=== PATIENT | female | born 1955 | race Caucasian/White ===

== ENCOUNTER 2018-10-12 00:41 | Emergency (ER) | payer MEDICARE, SELFPAY ==
[2018-10-12 00:42] VITALS: BP 156/93; PULSE 92; RESP 22; TEMP 36.4; O2SAT 94; BMI 26.6
--- NOTE | 2018-10-12 00:52 | RAD_ITS ---
STUDY: X-RAY - RIGHT KNEE REASON FOR EXAM: Female, 63 years old. Injury TECHNIQUE: The 3 view(s) of the knee. COMPARISON: None. FINDINGS: Normal visualized distal femur. Normal visualized proximal tibia and fibula. Normal proximal tibiofibular articulation. There is mild degenerative arthrosis of the medial femorotibial compartment. Normal lateral femorotibial compartment. Normal patellofemoral articulation. There is no demonstrated joint effusion. The soft tissue structures are unremarkable. RAD/Knee 3 Views IMPRESSION: Mild medial femoral tibial joint space narrowing. There is no acute displaced fracture or dislocation. Electronically Signed: Chantal Del Valle MD at 1:48 EST , Service support ,
--- NOTE | 2018-10-12 00:52 | RAD_ITS ---
STUDY: X-RAY - RIGHT WRIST REASON FOR EXAM: Female, 63 years old. Injury TECHNIQUE: 3 view(s) of the wrist were obtained. COMPARISON: None. FINDINGS: Acute transverse fracture of the distal radius with dorsal angulation and foreshortening. There is demineralization of osseous structures. Normal radiocarpal articulation. There is a positive ulnar variance. Normal carpal bones. Normal carpal articulations. There is mild arthrosis of the carpometacarpal articulation of the thumb. Normal second through fifth carpometacarpal articulations. Normal visualized metacarpal bones. There is soft tissue swelling. RAD/Wrist min 3 Views IMPRESSION: Acute displaced fracture of the distal radial metaphyses. There is demineralization of osseous structures. Mild degenerative changes. There is soft tissue swelling. Electronically Signed: Chantal Del Valle MD at 1:50 EST , Service support ,
--- NOTE | 2018-10-12 00:52 | RAD_ITS ---
STUDY: X-RAY - RIGHT RADIUS AND ULNA REASON FOR EXAM: Female, 63 years old. Injury TECHNIQUE: 2 view(s) of the forearm. COMPARISON: None. FINDINGS: There is soft tissue swelling. There is a distal acute transverse radial fracture with dorsal angulation and adjacent soft tissue swelling. Radius is shortened. There is demineralization of osseous structures. Normal visualized ulna. RAD/Forearm 2 Views IMPRESSION: Acute displaced transverse fracture of the distal radius with dorsal angulation and foreshortening. There is demineralization of osseous structures. There is soft tissue swelling. Electronically Signed: Chantal Del Valle MD at 1:47 EST , Service support ,
[2018-10-12] MEDS: Ondansetron 4 MG/2 ML Vial IV (01:00)
[2018-10-12] MEDS: Morphine 4 MG/ML Syringe IV (01:00)
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
--- NOTE | 2018-10-12 02:10 | EKG12_ITS ---
Test Reason : FALL Blood Pressure : / mmHG Vent. Rate : 083 BPM Atrial Rate : 083 BPM P-R Int : 154 ms QRS Dur : 076 ms QT Int : 376 ms P-R-T Axes : 066 066 062 degrees QTc Int : 441 ms Sinus rhythm with occasional Premature ventricular complexes Otherwise normal ECG Confirmed by MINH SMITH, PREMA ([id number]), editor news EMMA SOCAR ([id number]) on 10/14/2018 8:19:20 AM Referred By: PALOMA Confirmed By:PREMA WILKINSON MD
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
[2018-10-12 02:15] VITALS: BP 99/75; PULSE 80; RESP 18; O2SAT 94
[2018-10-12 02:18] VITALS: PULSE 85; RESP 18
[2018-10-12] MEDS: Ipratropium/Albuterol Sulfate 3 ML AMPUL.NEB INHALATION (02:18)
[2018-10-12] MEDS: Albuterol 2.5 MG/3 ML VIAL.NEB. INHALATION ×2 (02:18→02:37)
[2018-10-12 02:22] LABS: Absolute Lymphocyte Count 3.31 X10^3/ul (0.83-4.51); Absolute Neutrophil Count 8.5 X10^3/uL (2.0-7.7); Basophil# 0.03 X10^3/uL; Basophil% 0.2 % (0-1); Eosinophil# 0.11 X10^3/uL; Eosinophils% 0.8 % (0-5); Hematocrit 44.3 % (37-47); Hemoglobin 14.8 g/dl (12.0-15.0); Lymphocyte # 3.31 X10^3/ul (4.0); Lymphocyte % 24.9 % (19-41); Mean Corp Hgb Conc 33.4 g/gl (32-36); Mean Corpuscular Hgb 32.2 pg (27.0-32.0); Mean Corpuscular Volume 96.3 fL (81-99); Mean Platelet Vol. 10.6 fl (6.2-12.0); Monocyte# 1.32 X10^3/uL; Monocyte% 9.9 % (0-10); Neutrophil # 8.48 X10^3/uL (2.7-7.7); Neutrophil % 63.9 % (47-70); POSITIVE DIFFERENTIAL NO; Platelet Count 377 K/mm3 (150-450); RBC Distribution Width CV 15.2 % (11.6-14.6); White Blood Count 13.3 K/mm3 (4.4-11.0)
[2018-10-12 02:23] LABS: POSITIVE COUNT NO; POSITIVE MORPHOLOGY NO
[2018-10-12 02:34] LABS: Anion Gap 7 (5-15); BUN 12 mg/dL (7-18); BUN/Creat Ratio 15.4 RATIO (10-20); Calcium,Total 8.4 mg/dL (8.5-10.1); Chloride 102 mmol/L (98-107); Creatinine, Serum 0.78 mg/dL (0.55-1.02); EST Glomerular Filtration Rate 79 mL/min (>60); Est Glom Filt Rate - Afr Amer 96 mL/min (>60); Estimated Creatinine Clearance 54.98 ml/min; Glucose 106 mg/dL (74-106); Potassium 4.3 mmol/L (3.5-5.1); Sodium Level 136 mmol/L (136-145)
[2018-10-12 02:37] VITALS: PULSE 83; RESP 18
--- NOTE | 2018-10-12 03:25 | ED.VISSUMM ---
- ER Visit Summary Date of Service: 10/12/18 Chief Complaint: [] History of Present Illness: The patient is a 63 F [] Physical Examination: [] Test Results: [] Emergency Department Course and Treatment: [] Treatment Plan: [] Disposition: [] Impression: [] This note was generated with [employer] dictation software. It may contain incorrect words, spelling, and punctuation that were not noted in review of the chart prior to signing ED Disposition - Plan for ED Patient: Disposition: Home or Assisted Living Chief Complaint: Fall Instructions: ED Mechanical Fall, ED Fx Wrist General, Treatment for COPD Prescriptions: Oxycodone HCl/Acetaminophen [Percocet 5/325] 1 tab PO Q6H PRN PRN 3 Days #12 tab PRN Reason: Pain Prednisone [Deltasone] 40 mg PO DAILY #8 tab Referrals: Xavier Brownlee MD [Primary Care Provider] - iGl Peters MD [STAFF PHYSICIAN] -
[2018-10-12] MEDS: MethylPREDNISolone 125 MG/2 ML Vial IV (03:29)
[2018-10-12 03:44] VITALS: BP 126/62; PULSE 85; RESP 24; O2SAT 86
--- NOTE | 2018-10-12 03:45 | ED.RN ---
PATIENT REFUSES TO STAY DESPITE DOCTOR AND NURSES ADVICE. PATIENT'S O2 IS 86% ON ROOM AIR AND PATIENT UNDERSTANDS THE RISKS.
== END 2018-10-12 03:46 | disposition home or self-care (01) ==
PROVIDERS: Emergency Provider Emergency Medicine; Family Provider Family Medicine; PCP Family Medicine
DX: S52.501A Unspecified fracture of the lower end of right radius, initial encounter for closed fracture (principal); S80.01XA Contusion of right knee, initial encounter; J44.1 Chronic obstructive pulmonary disease with (acute) exacerbation; R09.02 Hypoxemia; R06.2 Wheezing; Z79.82 Long term (current) use of aspirin; Z79.899 Other long term (current) drug therapy; W18.30XA Fall on same level, unspecified, initial encounter; Y93.01 Activity, walking, marching and hiking; Y92.096 Garden or yard of other non-institutional residence as the place of occurrence of the external cause; Y99.8 Other external cause status
CPT/HCPCS: 29125; 71046; 73090; 73110; 73562; 80048; 84484; 85025; 93005; 94640; 96374; 96375; 99285; A4216; J2405

== ENCOUNTER 2019-07-19 19:45 | Emergency (ER) | payer MEDICARE, SELFPAY ==
[2019-07-19 19:46] VITALS: BP 163/76; PULSE 87; RESP 20; TEMP 36.4; O2SAT 93; BMI 22.1
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
[2019-07-19 19:51] VITALS: BP 163/76; PULSE 91; RESP 30; O2SAT 93
[2019-07-19 19:54] VITALS: TEMP 36.4; O2SAT 94
[2019-07-19] MEDS: fentaNYL 100 MCG/2 ML Ampul 50 MCG IV (20:00)
[2019-07-19] MEDS: Ondansetron 4 MG/2 ML Vial IV (20:00)
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
--- NOTE | 2019-07-19 20:07 | ED.RN ---
PT CROSS NECKLACE PLACED IN GREEN AND BLUE VERA ROSEMARIE PURSE FOR CT.
[2019-07-19 20:09] LABS: Absolute Lymphocyte Count 2.88 X10^3/uL (0.83-4.51); Absolute Neutrophil Count 9.7 X10^3/uL (2.0-7.7); Basophil# 0.05 X10^3/uL; Basophil% 0.4 % (0-1); Eosinophil# 0.08 X10^3/uL; Eosinophils% 0.6 % (0-5); Hematocrit 43.2 % (37-47); Hemoglobin 13.8 g/dL (12.0-15.0); Lymphocyte # 2.88 X10^3/ul (4.0); Lymphocyte % 20.6 % (19-41); Mean Corp Hgb Conc 31.9 g/dL (32-36); Mean Corpuscular Hgb 28.6 pg (27.0-32.0); Mean Corpuscular Volume 89.6 fL (81-99); Mean Platelet Vol. 9.3 fl (6.2-12.0); Monocyte# 1.19 X10^3/uL; Monocyte% 8.5 % (0-10); NRBC Flagged by Analyzer 0 % (0-5); Neutrophil # 9.72 X10^3/uL (2.7-7.7); Neutrophil % 69.5 % (47-70); Platelet Count 367 K/mm3 (150-450); RBC Distribution Width SD 52.8 fl (35.1-43.9); Red Blood Count 4.82 M/mm3 (4.2-5.4)
[2019-07-19 20:22] LABS: Anion Gap 6 (5-15); BUN 7 mg/dL (7-18); BUN/Creat Ratio 10.5 RATIO (10-20); Calcium,Total 8.4 mg/dL (8.5-10.1); Chloride 95 mmol/L (98-107); Creatinine, Serum 0.66 mg/dL (0.55-1.02); EST Glomerular Filtration Rate 95 mL/min (>60); Est Glom Filt Rate - Afr Amer 115 mL/min (>60); Estimated Creatinine Clearance 83.74 ml/min; Glucose 91 mg/dL (74-106); Potassium 4.4 mmol/L (3.5-5.1); Sodium Level 127 mmol/L (136-145)
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
[2019-07-19 20:32] LABS: International Normalized Ratio 0.9; Partial Thromboplast Time 29.2 Seconds (24.1-36.2); Prothrombin Time (Protime)PT. 12.4 SECONDS (11.7-14.9)
[2019-07-19 20:52] LABS: Alcohol, Blood (Medical)-Serum < 3.0 mg/dL
[2019-07-19 20:57] VITALS: BP 163/86; PULSE 87; RESP 18; O2SAT 98
[2019-07-19 21:00] VITALS: PULSE 83; RESP 19; O2SAT 96
[2019-07-19 21:45] VITALS: BP 159/80; PULSE 84; RESP 18; O2SAT 90; O2SAT 92
== END 2019-07-19 21:47 | disposition home or self-care (01) ==
PROVIDERS: Emergency Provider Emergency Medicine; Family Provider Family Medicine; PCP Family Medicine
DX: S06.0X0A Concussion without loss of consciousness, initial encounter (principal); S33.5XXA Sprain of ligaments of lumbar spine, initial encounter; J44.9 Chronic obstructive pulmonary disease, unspecified; I70.0 Atherosclerosis of aorta; R91.1 Solitary pulmonary nodule; F17.200 Nicotine dependence, unspecified, uncomplicated; Z79.82 Long term (current) use of aspirin; V47.0XXA Car driver injured in collision with fixed or stationary object in nontraffic accident, initial encounter; Y93.I9 Activity, other involving external motion; Y92.410 Unspecified street and highway as the place of occurrence of the external cause; Y99.8 Other external cause status
CPT/HCPCS: 70450; 71045; 71260; 72125; 74177; 80048; 80320; 85025; 85610; 85730; 93005; 96374; 96375; 99285; Q9967; A4216; G0480; J2405

== ENCOUNTER 2020-03-03 20:55 | Inpatient (IN) | payer MEDICARE, SELFPAY ==
[2020-03-03] VITALS (9 sets, daily range): BP systolic 118–151; BP diastolic 58–82; PULSE 102–113; RESP 12–35; TEMP 36.3–36.7; O2SAT 80–97; BMI 27.1
--- NOTE | 2020-03-03 21:00 | EKG12_ITS ---
Test Reason : SOB Blood Pressure : / mmHG Vent. Rate : 111 BPM Atrial Rate : 111 BPM P-R Int : 196 ms QRS Dur : 084 ms QT Int : 318 ms P-R-T Axes : 064 077 037 degrees QTc Int : 432 ms Sinus tachycardia Biatrial enlargement Abnormal ECG Confirmed by RHONDA SMITH, BEV ([id number]), department editor JAYCE FERNANDEZ ([id number]) on 03/06/2020 10:40:38 AM Referred By: LUIZ Confirmed By:BEV ELLIS MD
[2020-03-03] MEDS: MethylPREDNISolone 125 MG/2 ML Vial IV (21:19)
[2020-03-03] MEDS: Ipratropium/Albuterol Sulfate 3 ML AMPUL.NEB INHALATION (21:19)
[2020-03-03] MEDS: 0.9% Normal Saline 1,000 ML 150 ML IV (21:19)
--- NOTE | 2020-03-03 21:25 | RAD_ITS ---
STUDY: X-RAY CHEST REASON FOR EXAM: Female, 64 years old. sob, hx copd, productive cough with dark yellow phlegm. Expiratory wheezes TECHNIQUE: Single frontal view of the chest. COMPARISON: July 19, 2019 FINDINGS: There are stable prominent interstitial markings. There is no new focal consolidation. Normal size heart. Normal mediastinum and didier. Normal visualized pulmonary arteries. Normal visualized aortic arch and descending thoracic aorta. Normal visualized thoracic spine. Normal visualized ribs, clavicles, and shoulders. There is no demonstrated abnormality of the visualized soft tissue structures of the upper abdomen. RAD/Chest 1 View (Portable) IMPRESSION: No acute cardiopulmonary process. Electronically Signed: Vivian Saenz MD at 22:06 EDT Tel , Service support ,
[2020-03-03 21:28] LABS: Absolute Lymphocyte Count 2.38 X10^3/uL (0.83-4.51); Basophil# 0.06 X10^3/uL; Basophil% 0.2 % (0-1); Eosinophil# 0.03 X10^3/uL; Eosinophils% 0.1 % (0-5); Hematocrit 41.6 % (37-47); Hemoglobin 13.6 g/dL (12.0-15.0); Lymphocyte # 2.38 X10^3/ul (4.0); Lymphocyte % 8.2 % (19-41); Mean Corp Hgb Conc 32.7 g/dL (32-36); Mean Corpuscular Hgb 29.4 pg (27.0-32.0); Mean Corpuscular Volume 89.8 fL (81-99); Mean Platelet Vol. 9.7 fl (6.2-12.0); Monocyte# 2.46 X10^3/uL; Monocyte% 8.4 % (0-10); NRBC Flagged by Analyzer 0 % (0-5); Neutrophil # 23.95 X10^3/uL (2.7-7.7); Neutrophil % 82.2 % (47-70); POSITIVE DIFFERENTIAL YES; Platelet Count 363 K/mm3 (150-450); RBC Distribution Width CV 16.1 % (11.6-14.6); RBC Distribution Width SD 53.6 fl (35.1-43.9); Red Blood Count 4.63 M/mm3 (4.2-5.4); White Blood Count 29.2 K/mm3 (4.4-11.0)
[2020-03-03 21:31] LABS: Differential Indicated SCAN CRITERIA MET
[2020-03-03 21:47] LABS: Anion Gap 7 (5-15); BUN 10 mg/dL (7-18); BUN/Creat Ratio 10.9 RATIO (10-20); Calcium,Total 8.4 mg/dL (8.5-10.1); Chloride 94 mmol/L (98-107); Creatinine, Serum 0.92 mg/dL (0.55-1.02); EST Glomerular Filtration Rate 65 mL/min (>60); Est Glom Filt Rate - Afr Amer 79 mL/min (>60); Glucose 102 mg/dL (74-106); Potassium 4.1 mmol/L (3.5-5.1); Sodium Level 126 mmol/L (136-145)
[2020-03-03 21:52] LABS: D-Dimer Quantitative (DVT/PE) 0.84 FEU/ug/m (0.27-0.49)
--- NOTE | 2020-03-03 22:04 | CT_ITS ---
STUDY: CTA CHEST REASON FOR EXAM: Female, 64 years old. PE, SOB, COPD, COUGH, DARK YELLOW PHLEGM, WHEEZING, ELEVATED D-DIMER RADIATION DOSAGE (If Supplied By Facility): CTDIvol = ( 6.00 ) mGy, DLP = ( 219.65 ) mGycm TECHNIQUE: The examination was performed with the intravenous administration of IV 100mL Isovue-370. Post-processing of the angiographic images was performed, with multiplanar reformation and 3D reconstruction. Individualized dose optimization techniques were used for this CT. COMPARISON: July 19, 2019 FINDINGS: Motion artifact degrades anatomic detail. There is new focal consolidation within the right middle and upper lobes. There is minimal dependent consolidation within the lower lobes visualized as well. There are scattered tree-in-bud opacities throughout the lungs. There is minimal atelectasis within the lingula. Normal enhancement of the main pulmonary artery and right and left pulmonary arteries. Normal enhancement of the bilateral peripheral pulmonary arteries. There is no demonstrated pulmonary embolism. There is atherosclerotic calcification of the aortic arch . There is no demonstrated aortic dissection. There are calcifications of the coronary arteries. There are enlarged mediastinal and right hilar lymph nodes. Normal visualized trachea and bronchi. Normal chest wall structures. There are degenerative changes of thoracic spine. Limited images of the upper abdomen demonstrate peripheral calcifications of the abdominal aorta. CT/CTA Chest W/WO Contrast IMPRESSION: No demonstrated pulmonary embolism or arterial dissection. Scattered tree-in-bud opacities associated with consolidation consolidation within the right middle and upper lobes and to less extent within the lower lobes, may be secondary to an infectious process. Enlarged mediastinal and right hilar lymph nodes, possibly reactive. Atherosclerosis. Electronically Signed: Vivian Saenz MD at 23:08 EDT Tel , Service support ,
[2020-03-03] MEDS: Albuterol 2.5 MG/3 ML VIAL.NEB. INHALATION ×2 (22:10)
[2020-03-03 23:15] LABS: Allen Test POS; Blood Gas Specimen Type ART; O2 Delivery Device Nasal Can; SITE R RADIAL
[2020-03-03 23:16] LABS: Base Excess -6 mmol/L (-2 to +2); PO2 68 mmHG (75-100); SO2 89 % (95-99); Time Given 2135; Total Carbon Dioxide 24 mmol/L; pCO2 53.5 mmHg (35-45); pH 7.22 (7.35-7.45)
--- NOTE | 2020-03-03 23:26 | ED.VISSUMM ---
- ER Visit Summary Date of Service: 03/03/20 Chief Complaint: Shortness of breath History of Present Illness: The patient is a [address] Jo. She has a history of COPD. She reports she has shortness of breath that began yesterday. She has had a cough for the past week. She was states it is productive of dark yellow sputum without blood. She denies any fever or chills. She complains of a stabbing left-sided chest pain is 8 out of 10 severity states that it radiates to her back. This began yesterday and is a constant pain. She is been nauseated and vomited 4 times today. No blood in her emesis. She is also had strips of the diarrhea today. No blood in her stools or black tarry stools. She complains of generalized weakness and a headache as well. Patient denies any sick contacts. She has been quarantining. She reports has had similar symptoms previously, but never to this extent. Physical Examination: Vitals: 97.9, 151/82, 113, 29, 80% on room air which is hypoxic. General: Well-nourished and well-developed. Head: Normocephalic atraumatic. Neck: Supple, no lymphadenopathy. No JVD. Nontender. Cardiovascular: Tachycardic regular rhythm. No murmurs. Respiratory: Severe respiratory distress. She has minimal wheezing bilaterally with greatly decreased air movement. Abdominal: Soft, nontender, nondistended, normal bowel sounds. No guarding, rebound, or peritoneal signs. Back: Nontender. Extremities: Nontender, no edema. Skin: Normal color, no rash. Neurologic: Alert and oriented ?3. Cranial nerves II through XII are intact. Normal strength and sensation. Psych: Normal affect. Test Results: CBC shows a white count of 29.2 with 82 segmented neutrophils and 8 lymphocytes. Chem-7 shows a sodium 126, chloride 94, calcium of 8.4. Troponin is negative. D-dimer is 0.84. ABG shows a pH of 7.22 with a CO2 of 53.5, PO2 of 68 on 2 L nasal cannula. Lactic acid is 1.0. Clinical Impression(s) from Imaging Studies Chest X-Ray 03/03/20 21:25 IMPRESSION: No acute cardiopulmonary process. Electronically Signed: Vivian Saenz MD at 22:06 EDT Tel , Service support , Chest CTA 03/03/20 22:04 IMPRESSION: No demonstrated pulmonary embolism or arterial dissection. Scattered tree-in-bud opacities associated with consolidation consolidation within the right middle and upper lobes and to less extent within the lower lobes, may be secondary to an infectious process. Enlarged mediastinal and right hilar lymph nodes, possibly reactive. Atherosclerosis. Electronically Signed: Vivian Saenz MD at 23:08 EDT Tel , Service support , Emergency Department Course and Treatment: Patient is lethargic. She does arouse to questions and answers them appropriately. I suspect that there is a component of lethargy from her CO2. She was placed on BiPAP and is greatly improved. She was given albuterol and Atrovent aerosols. She was given Solu-Medrol IV. She is given Rocephin and Zithromax IV. She is now resting much more comfortably. Treatment Plan: The patient was discussed with . She will be admitted to the hospital for further evaluation and treatment. Disposition: Admitted in improved condition. Impression: 1. Pneumonia. 2. Hypoxia. 3. Respiratory failure on BiPAP. 4. COPD. 5. Critical care time 30 minutes. This note was generated with [employer] software. It may contain incorrect words, spelling, and punctuation that were not noted in review of the chart prior to signing ED Disposition - Plan for ED Patient: Referrals: Xavier Brownlee MD [Primary Care Provider] -
[2020-03-03] MEDS: Ceftriaxone 1 GM/50 ML BAG IV (23:42)
[2020-03-04] VITALS (23 sets, daily range): BP systolic 100–133; BP diastolic 61–77; PULSE 81–108; RESP 12–28; TEMP 36–36.8; O2SAT 92–98; BMI 26.4; BMI 26.5
--- NOTE | 2020-03-04 01:49 | NURSING ---
Pt very drowsy at this time. Will attempt to complete remained of admission when pt more alert.
--- NOTE | 2020-03-04 05:10 | NURSING ---
Attempted to complete more of admission at this time; pt still very lethargic. Vital signs stable. Will continue to monitor.
--- NOTE | 2020-03-04 05:31 | HP.PCM_ITS ---
Problem List (1) COPD exacerbation Status: Acute (2) Community acquired pneumonia Status: Acute History of Present Illness Date of Admission: 03/04/20 Chief Complaint: Shortness of breath. The patient is a 64 year old F with a significant history of COPD; anxiety disorder and PTSD who presents emergency department with shortness of breath x1 day. Associated with symptoms is fatigue; and weakness. Reportedly she was so weak that she could not walk. Also she has a cough which is productive for dark yellow sputum. Further she has chest pain. At emergency department patient was hypoxic to rest and that she needed a BiPAP. Past Medical History Medical History: Medical History (Last Updated 03/04/20 @ 05:[address] Juve Patino MD) COPD (chronic obstructive pulmonary disease) J44.9 Allergies tramadol Allergy (Verified 03/03/20 21:03) Anaphylaxis Home Medications: Ambulatory Orders Medication Instructions Recorded Aspirin [Aspirin, Baby] 81 mg PO DAILY@0800 03/28/14 Citalopram Hydrobromide [Celexa] 40 mg PO DAILY 03/28/14 Clonazepam [Klonopin] 1 mg PO TID 03/28/14 Gabapentin [Neurontin] 800 mg PO TIDCM 09/07/16 Ibuprofen [Motrin] 800 mg PO TID PRN PRN #20 tablet 12/18/16 Prednisone [Deltasone] 40 mg PO DAILY #8 tab 10/12/18 Amitriptyline HCl 25 mg PO QHS 03/03/20 Cyclobenzaprine HCl 10 mg PO TID 03/03/20 Surgical History: cholecystectomy, tonsillectomy Smoking Status: Current every day smoker - *Family History Maternal History Items: Heart Disease Paternal History Items: - - Denies knowledge of paternal medical history. Review of Systems Constitutional: Denies: Chills, Fever, Weight Change HEENT: Denies: Head Aches, Sinus Congestion, Sinus Drainage Cardiovascular: Reports: Chest Pain. Denies: Palpitations Respiratory: Reports: Cough, Sputum production. Denies: Shortness of breath at rest Gastrointestinal: Denies: Abdominal Pain, Nausea, Vomiting Genitourinary: Denies: Dysuria Musculoskeletal: Denies: Joint Pain, Joint Tenderness Skin: Denies: Rash, Wounds Neurological: Denies: Numbness, Tingling, Focal weakness Psychiatric: Reports: Anxiety. Denies: Depression, Homicidal Ideations, Suicidal Ideations Hematologic/ Lymphatic: Denies: Easy Bruising, Easy Bleeding VTE Information - Inpt Only VTE Present on Admission: No VTE Mechan Device Prophylaxis: None VTE Pharm Prophylaxis ordered?: Yes Patient Problems: Active and Suspected Problems COPD exacerbation (Acute) Community acquired pneumonia (Acute) - Physical Exam Vitals/I&O's: Vital Signs Temp Pulse Resp BP Pulse Ox 97.2 F L 81 18 100/64 92 03/04/20 04:54 03/04/20 04:54 03/04/20 04:54 03/04/20 04:54 03/04/20 04:54 Oxygen Flow Rate (L/min) 4 Oxygen Delivery Method Nasal Cannula Weight: 63.5 kg Body Mass Index (BMI) 26.4 Intake and Output for Last 24 Hours 03/02/20 03/03/20 03/04/20 23:59 23:59 23:59 Intake Total 870 / 870 Output Total 0 / 0 Balance 870 / 870 General: Alert, Oriented x3, Cooperative HEENT: Atraumatic, PERRLA, EOMI, Normocephalic Neck: Supple, No JVD, Negative Carotid Bruits Lungs: No rhonchi, No wheeze, No rales, Diminished, Tachypneic Cardiovascular: Normal S1, Normal S2, No murmurs, Tachycardic Abdomen: Bowel Sounds Present, Soft, Non Tender Extremities: No edema, Capillary Refill Less than 3 Seconds Skin: No rashes, No breakdown Musculoskeletal: No Tenderness to Palpation of Joints or Extremities Neurological: Cranial nerves II-XII grossly intact Psych/Mental Status: Anxious Laboratory Results 03/03/20 20:50: WBC 29.2 H, RBC 4.63, Hgb 13.6, Hct 41.6, MCV 89.8, MCH 29.4, MCHC 32.7, RDW Std Deviation 53.6 H, RDW Coeff of Tanisha 16.1 H, Plt Count 363, MPV 9.7, Immature Gran % (Auto) 0.900, Neut % (Auto) 82.2 H, Lymph % (Auto) 8.2 L, [place] % (Auto) 8.4, Eos % (Auto) 0.1, Baso % (Auto) 0.2, Absolute Neuts (auto) 24.0 H, Absolute Lymphs (auto) 2.38, Nucleated RBC % 0, Diff Path Review January foll 03/03/20 20:50: Sodium 126 L, Potassium 4.1, Chloride 94 L, Carbon Dioxide 25.0, Anion Gap 7, BUN 10, Creatinine 0.92, Estim Creat Clear Calc 46.00, Est GFR (MDRD) Af Amer 79, Est GFR (MDRD) Non-Af 65, BUN/Creatinine Ratio 10.9, Glucose 102, Calcium 8.4 L, Troponin I < 0.015 03/03/20 20:50: D-Dimer Quant (PE/DVT) 0.84 H* 03/03/20 21:12: Lactic Acid 1.0 03/03/20 21:25: COVID-19 (DEB) Not Detected 03/03/20 21:35: Specimen Type ART, Sample Site R RADIAL, pH 7.22 L, Bicarbonate Actual 22.0, POC Total CO2 24, Base Excess -6 L, O2 Saturation 89 L, ABG pCO2 53.5 H, ABG pO2 68 L, Ben Test POS, O2 Delivery Device Nasal Can, Liter Flow 2.0, Blood Gas Notified Whom ED MD, Blood Gas Notified Time 3202 Current Medications Acetaminophen (Tylenol) 650 mg PO Q6H PRN PRN PRN Reason: Pain Score 1-10/Temp > 100.7 F Albuterol/Ipratropium (Duoneb) 3 ml INHALATION Q4HWA.RT [facility] Amitriptyline HCl (Elavil) 25 mg PO QHS [facility] Aspirin (Aspirin, Baby) 81 mg PO DAILY@0800 [facility] Citalopram Hydrobromide (Celexa) 40 mg PO DAILY [facility] Clonazepam (Klonopin) 1 mg PO TID [facility] Last Admin: 03/04/20 05:18 Dose: Not Given Documented by: Cyclobenzaprine HCl (Flexeril) 10 mg PO TID [facility] Last Admin: 03/04/20 05:18 Dose: Not Given Documented by: Dextrose (D50w Syringe) 0 gm IV X1 PRN; Protocol PRN Reason: Hypoglycemia Gabapentin (Neurontin) 800 mg PO TIDCM [facility] Glucagon () 1 mg IM .X1 PRN PRN Reason: Hypoglycemia Guaifenesin (Mucinex) 1,200 mg PO BID [facility] Sodium Chloride () 250 mls @ 15 mls/hr IV .[id number] PRN PRN Reason: Saline Flush Sodium Chloride () 250 mls @ 15 mls/hr IV .[id number] PRN PRN Reason: Additional IVPB Infusion Sodium Chloride () 250 mls @ 15 mls/hr IV .[id number] PRN PRN Reason: Saline Flush Sodium Chloride () 250 mls @ 15 mls/hr IV .[id number] PRN PRN Reason: Additional IVPB Infusion Azithromycin 500 mg/ Dextrose 255 mls @ 250 mls/hr IV Q24H [facility] Stop: 03/06/20 23:02 Ceftriaxone Sodium (Rocephin) 1 gm in 50 mls @ 100 mls/hr IV Q24H [facility] Melatonin (Melatonin) 3 mg PO QHS PRN PRN PRN Reason: INSOMNIA Methylprednisolone (Solu-Medrol) 40 mg IV Q8 [facility] Stop: 03/05/20 06:01 Ondansetron HCl (Zofran) 4 mg IV Q8H PRN PRN PRN Reason: NAUSEA/VOMITING Sodium Chloride () 10 - 40 ml IV UD PRN PRN Reason: SALINE FLUSH Assessment/Plan All Active Problems COPD exacerbation (Acute) Community acquired pneumonia (Acute) The patient is a 64 year old F with a significant history of COPD; anxiety disorder and PTSD who presents emergency department with shortness of breath; fatigue; and weakness and found to have a chest CTA findings of consolidation and enlarged lymph nodes. Sepsis secondary to community-acquired pneumonia Order lactic acid. Respiratory rate more than 20; heart rate more than 90 white count of 29.2 Chest CTA is remarkable for consolidation and enlarged lymph nodes. Blood culture ?2 is pending Respiratory Gram stain and culture pending Antibiotics: Ceftriaxone and azithromycin was ordered at the emergency department. While inpatient order ceftriaxone and azithromycin. DuoNeb scheduled. Albuterol as needed Legionella antigen screen and Strep antigen ordered Continue patient on BiPAP as needed.. Coffee screen at the emergency department was negative. Unknowingly she has not been exposed to somebody with a cough it. She denies loss of taste. She denies GI symptoms. A CT scan explained her symptoms. Her CT scan does not look viral pattern. Okay to discontinue enhanced covid precautions. Acute exacerbation of COPD Antibiotic treatment as pneumonia. Scheduled DuoNeb. Albuterol. Received Solu-Medrol 125 mg IV x1 at emergency department. Solu-Medrol continued. Hyponatremia Sodium of 126. Likely from SIADH secondary to pulmonary infection. Urinary sodium and urine osmolality. Get serum osmolality. Treat pulmonary infection. Anxiety/PTSD Klonopin continued. Celexa continued. Amitriptyline continued. Tobacco abuse: counseled Nicotine patch prescribed. DVT Prophylaxis Subcutaneous Lovenox. Inpatient E&M: 89919 Init Hosp L3
[2020-03-04] MEDS: 0.9% Saline Lock 10 ML Syringe IV ×2 (05:33→22:08)
[2020-03-04 06:06] LABS: Absolute Lymphocyte Count 0.41 X10^3/uL (0.83-4.51); Absolute Neutrophil Count 23.8 X10^3/uL (2.0-7.7); Basophil# 0.03 X10^3/uL; Basophil% 0.1 % (0-1); Eosinophil# 0.11 X10^3/uL; Eosinophils% 0.4 % (0-5); Hematocrit 39.8 % (37-47); Hemoglobin 12.6 g/dL (12.0-15.0); Lymphocyte # 0.41 X10^3/ul (4.0); Lymphocyte % 1.6 % (19-41); Mean Corp Hgb Conc 31.7 g/dL (32-36); Mean Corpuscular Hgb 29.2 pg (27.0-32.0); Mean Corpuscular Volume 92.1 fL (81-99); Mean Platelet Vol. 9.5 fl (6.2-12.0); Monocyte# 0.74 X10^3/uL; Monocyte% 2.9 % (0-10); NRBC Flagged by Analyzer 0 % (0-5); Neutrophil % 93.8 % (47-70); POSITIVE DIFFERENTIAL YES; POSITIVE MORPHOLOGY YES; Platelet Count 287 K/mm3 (150-450); RBC Distribution Width CV 16.2 % (11.6-14.6); RBC Distribution Width SD 54.8 fl (35.1-43.9); Red Blood Count 4.32 M/mm3 (4.2-5.4); White Blood Count 25.4 K/mm3 (4.4-11.0)
[2020-03-04 06:37] LABS: Differential Indicated SCAN CRITERIA MET
[2020-03-04 06:55] LABS: Anion Gap 7 (5-15); BUN 8 mg/dL (7-18); BUN/Creat Ratio 11.2 RATIO (10-20); Calcium,Total 8.2 mg/dL (8.5-10.1); Chloride 100 mmol/L (98-107); Creatinine, Serum 0.72 mg/dL (0.55-1.02); EST Glomerular Filtration Rate 87 mL/min (>60); Est Glom Filt Rate - Afr Amer 105 mL/min (>60); Estimated Creatinine Clearance 58.78 ml/min; Glucose 180 mg/dL (74-106); Potassium 4.1 mmol/L (3.5-5.1); Sodium Level 132 mmol/L (136-145)
--- NOTE | 2020-03-04 06:57 | NURSING ---
Pt unsure of last PNA shot and last flu shot dates.
[2020-03-04 06:59] LABS: Differential Comment SCANNED; Lactic Acid 1.1 mmol/L (0.4-1.9)
[2020-03-04] MEDS: Ipratropium/Albuterol Sulfate 3 ML AMPUL.NEB INHALATION ×4 (07:20→19:37)
[2020-03-04 09:09] LABS: Urine Sodium 13 mmol/L (Not Establ.)
[2020-03-04 09:30] LABS: Osmolality, Serum 261 mOsm/KG (280-301)
[2020-03-04 09:30] LABS: Osmolality, Urine 239 mOsm/KG
[2020-03-04] MEDS: Citalopram 40 MG TABLET PO (10:49)
[2020-03-04] MEDS: Gabapentin 800 MG Tablet PO ×3 (10:49→17:32)
[2020-03-04] MEDS: Enoxaparin 40 MG/0.4 ML Syringe SC (10:49)
[2020-03-04] MEDS: Aspirin 81 MG TAB.CHEW PO (10:50)
[2020-03-04] MEDS: guaiFENesin 1,200 MG Tablet 1200 MG PO ×2 (10:50→22:08)
--- NOTE | 2020-03-04 12:05 | PCM.PROGNOTE ---
Patient Problems: Active and Suspected Problems (Last Updated 03/04/20 @ 05:[address] Juve Patino MD) COPD exacerbation (Acute) Community acquired pneumonia (Acute) Subjective: Patient seen and examined. States she feels significantly improved. Denies significant shortness of breath. Denies cough, fever, chills. - Physical Exam Vitals/I&O's: Vital Signs Temp Pulse Resp BP Pulse Ox 97.5 F L 101 H 20 H 122/62 H 92 03/04/20 10:00 03/04/20 11:27 03/04/20 11:27 03/04/20 10:00 03/04/20 10:00 Oxygen Flow Rate (L/min) 4 Oxygen Delivery Method Nasal Cannula Weight: 139 lb 15.896 oz Body Mass Index (BMI) 26.4 Intake and Output for Last 24 Hours 03/02/20 03/03/20 03/04/20 23:59 23:59 23:59 Intake Total 870 / 870 Output Total 0 / 0 Balance 870 / 870 General: Alert, Oriented x3, Cooperative HEENT: Atraumatic, PERRLA, EOMI, Normocephalic Neck: Supple, No JVD, Negative Carotid Bruits Lungs: Clear to auscultation, Diminished Cardiovascular: Regular rate, No murmurs Abdomen: Bowel Sounds Present, Soft, Non Tender, Non-Distended Extremities: No clubbing, No cyanosis, No edema, Capillary Refill Less than 3 Seconds Skin: No rashes, No breakdown Musculoskeletal: No Tenderness to Palpation of Joints or Extremities Neurological: Cranial nerves II-XII grossly intact, Neuro grossly intact Psych/Mental Status: Normal Affect, Appropriate Microbiology Past 72 Hours 03/04/20 06:45 Interface Orders Legionella Antigen - Final 03/04/20 06:45 Interface Orders Streptococcus pneumoniae Antigen (M - Final Laboratory Results 03/03/20 20:50: WBC 29.2 H, RBC 4.63, Hgb 13.6, Hct 41.6, MCV 89.8, MCH 29.4, MCHC 32.7, RDW Std Deviation 53.6 H, RDW Coeff of Tanisha 16.1 H, Plt Count 363, MPV 9.7, Immature Gran % (Auto) 0.900, Neut % (Auto) 82.2 H, Lymph % (Auto) 8.2 L, [place] % (Auto) 8.4, Eos % (Auto) 0.1, Baso % (Auto) 0.2, Absolute Neuts (auto) 24.0 H, Absolute Lymphs (auto) 2.38, Nucleated RBC % 0, Diff Path Review January03/03/20 20:50: Sodium 126 L, Potassium 4.1, Chloride 94 L, Carbon Dioxide 25.0, Anion Gap 7, BUN 10, Creatinine 0.92, Estim Creat Clear Calc 46.00, Est GFR (MDRD) Af Amer 79, Est GFR (MDRD) Non-Af 65, BUN/Creatinine Ratio 10.9, Glucose 102, Calcium 8.4 L, Troponin I < 0.015 03/03/20 20:50: D-Dimer Quant (PE/DVT) 0.84 H* 03/03/20 21:12: Lactic Acid 1.0 03/03/20 21:20: Serum Osmolality 261 L 03/03/20 21:25: COVID-19 (DEB) Not Detected 03/03/20 21:35: Specimen Type ART, Sample Site R RADIAL, pH 7.22 L, Bicarbonate Actual 22.0, POC Total CO2 24, Base Excess -6 L, O2 Saturation 89 L, ABG pCO2 53.5 H, ABG pO2 68 L, Ben Test POS, O2 Delivery Device Nasal Can, Liter Flow 2.0, Blood Gas Notified Whom ED MD, Blood Gas Notified Time 213403/04/20 05:47: WBC 25.4 H, RBC 4.32, Hgb 12.6, Hct 39.8, MCV 92.1, MCH 29.2, MCHC 31.7 L, RDW Std Deviation 54.8 H, RDW Coeff of Tanisha 16.2 H, Plt Count 287, MPV 9.5, Immature Gran % (Auto) 1.200 H, Neut % (Auto) 93.8 H, Lymph % (Auto) 1.6 L, [place] % (Auto) 2.9, Eos % (Auto) 0.4, Baso % (Auto) 0.1, Absolute Neuts (auto) 23.8 H, Absolute Lymphs (auto) 0.41 L, Nucleated RBC % 0, Differential Comment SCANNED 03/04/20 05:47: Sodium 132 L, Potassium 4.1, Chloride 100, Carbon Dioxide 25.0, Anion Gap 7, BUN 8, Creatinine 0.72, Estim Creat Clear Calc 58.78, Est GFR (MDRD) Af Amer 105, Est GFR (MDRD) Non-Af 87, BUN/Creatinine Ratio 11.2, Glucose 180 H, Calcium 8.2 L 03/04/20 05:47: Lactic Acid 1.1 03/04/20 06:45: Urine Osmolality 239, Ur Random Sodium 13 Current Medications Acetaminophen (Tylenol) 650 mg PO Q6H PRN PRN PRN Reason: Pain Score 1-10/Temp > 100.7 F Albuterol/Ipratropium (Duoneb) 3 ml INHALATION Q4HWA.RT [facility] Last Admin: 03/04/20 11:27 Dose: 3 ml Documented by: Amitriptyline HCl (Elavil) 25 mg PO QHS [facility] Aspirin (Aspirin, Baby) 81 mg PO DAILY@0800 [facility] Last Admin: 03/04/20 10:50 Dose: 81 mg Documented by: Citalopram Hydrobromide (Celexa) 40 mg PO DAILY [facility] Last Admin: 03/04/20 10:49 Dose: 40 mg Documented by: Clonazepam (Klonopin) 1 mg PO TID [facility] Last Admin: 03/04/20 05:18 Dose: Not Given Documented by: Cyclobenzaprine HCl (Flexeril) 10 mg PO TID [facility] Last Admin: 03/04/20 05:18 Dose: Not Given Documented by: Dextrose (D50w Syringe) 0 gm IV X1 PRN; Protocol PRN Reason: Hypoglycemia Enoxaparin Sodium (Lovenox) 40 mg SC DAILY [facility] Last Admin: 03/04/20 10:49 Dose: 40 mg Documented by: Gabapentin (Neurontin) 800 mg PO TIDCM [facility] Last Admin: 03/04/20 10:49 Dose: 800 mg Documented by: Glucagon () 1 mg IM .X1 PRN PRN Reason: Hypoglycemia Guaifenesin (Mucinex) 1,200 mg PO BID [facility] Last Admin: 03/04/20 10:50 Dose: 1,200 mg Documented by: Sodium Chloride () 250 mls @ 15 mls/hr IV .[id number] PRN PRN Reason: Saline Flush Sodium Chloride () 250 mls @ 15 mls/hr IV .[id number] PRN PRN Reason: Additional IVPB Infusion Sodium Chloride () 250 mls @ 15 mls/hr IV .[id number] PRN PRN Reason: Saline Flush Sodium Chloride () 250 mls @ 15 mls/hr IV .[id number] PRN PRN Reason: Additional IVPB Infusion Azithromycin 500 mg/ Dextrose 255 mls @ 250 mls/hr IV Q24H [facility] Stop: 03/06/20 23:02 Ceftriaxone Sodium (Rocephin) 1 gm in 50 mls @ 100 mls/hr IV Q24H [facility] Melatonin (Melatonin) 3 mg PO QHS PRN PRN PRN Reason: INSOMNIA Methylprednisolone (Solu-Medrol) 40 mg IV Q8 [facility] Stop: 03/05/20 06:01 Last Admin: 03/04/20 05:33 Dose: 40 mg Documented by: Nicotine (Nicoderm Cq (Pbkc)) 21 mg TRANSDERM. DAILY [facility] Last Admin: 03/04/20 10:51 Dose: Not Given Documented by: Ondansetron HCl (Zofran) 4 mg IV Q8H PRN PRN PRN Reason: NAUSEA/VOMITING Sodium Chloride () 10 - 40 ml IV UD PRN PRN Reason: SALINE FLUSH Last Admin: 03/04/20 05:33 Dose: 20 ml Documented by: Medical Necessity - Tobacco Use Smoking Status: Current every day smoker Assessment/Plan All Active Problems (Last Updated 03/04/20 @ 05:[address] Juve Patino MD) COPD exacerbation (Acute) Community acquired pneumonia (Acute) 1. Sepsis secondary to community-acquired pneumonia-chest CTA on admission with right middle lobe and upper lobes consolidation. WBC 29, tachycardic, tachypneic on admission. Lactic acid normal. IV Rocephin and IV azithromycin. COVID negative. 2. Acute hypoxic respiratory insufficiency secondary to community-acquired pneumonia and exacerbation of COPD-patient reports she has never had PFTs or followed with pulmonary medicine. Continue IV Solu-Medrol. Albuterol and DuoNeb aerosols. Continue supplement oxygen to maintain O2 at or above 90%. Walking pulse ox prior to discharge. 3. Anxiety/PTSD-continue home Klonopin, Celexa, amitriptyline. 4. Tobacco dependence-encouraged cessation. Nicotine replacement patch. DVT prophylaxis-Lovenox subcu This patient was seen by EMILIANA Miranda under the supervision of Dr. Celestin.
[2020-03-04] MEDS: cycloBENZAPRine HCl 10 MG Tablet PO ×2 (15:21→22:08)
[2020-03-04] MEDS: clonazePAM 1 MG Tablet PO (15:21)
[2020-03-04] MEDS: Ceftriaxone 1 GM/50 ML BAG IV (22:21)
[2020-03-05] VITALS (13 sets, daily range): BP systolic 115–135; BP diastolic 63–83; PULSE 82–107; RESP 16–20; TEMP 36.6–36.9; O2SAT 94–98
--- NOTE | 2020-03-05 03:05 | CPS ---
pt declined use of bipap tonight
[2020-03-05] MEDS: 0.9% Saline Lock 10 ML Syringe IV ×2 (06:10→21:06)
[2020-03-05 06:29] LABS: Hematocrit 38.1 % (37-47); Hemoglobin 12.1 g/dL (12.0-15.0); Mean Corp Hgb Conc 31.8 g/dL (32-36); Mean Corpuscular Hgb 28.9 pg (27.0-32.0); Mean Corpuscular Volume 91.1 fL (81-99); Mean Platelet Vol. 9.7 fl (6.2-12.0); Platelet Count 332 K/mm3 (150-450); RBC Distribution Width CV 16.5 % (11.6-14.6); RBC Distribution Width SD 55.3 fl (35.1-43.9); Red Blood Count 4.18 M/mm3 (4.2-5.4); White Blood Count 25.3 K/mm3 (4.4-11.0)
[2020-03-05 06:52] LABS: Anion Gap 4 (5-15); BUN 12 mg/dL (7-18); BUN/Creat Ratio 19.9 RATIO (10-20); Calcium,Total 8.5 mg/dL (8.5-10.1); Chloride 107 mmol/L (98-107); EST Glomerular Filtration Rate 106 mL/min (>60); Est Glom Filt Rate - Afr Amer 128 mL/min (>60); Estimated Creatinine Clearance 70.54 ml/min; Glucose 145 mg/dL (74-106); Potassium 4.9 mmol/L (3.5-5.1); Sodium Level 138 mmol/L (136-145)
[2020-03-05] MEDS: Ipratropium/Albuterol Sulfate 3 ML AMPUL.NEB INHALATION ×3 (07:05→20:54)
--- NOTE | 2020-03-05 10:37 | CASEMGMT ---
RN CM Assessment Note Intro role of CM to patient in room. Pt is awake, alert, able to participate in assessment. PCP, demographics verified. Pt states she lives in own apartment. children assist with medication set up, cooking cleaning. Pt inquired re: having apartment cleaned- KASSIDY CARPENTER let pt know this is not covered under medical insurances and would be private pay. Discussed PT/OT evaluations and recommendations. Pt does no think she will need HHC, however would like to wait and see how I do. Also discussed Home oxygen set up. Pt is aware she may need Home Oxygen on dc. Diagnosis: COPD, CAP PCP: Dr. Francis Brownlee Specialists: Psychiatrist Dr. Laboy [facility] Insurance: [facility] Preferred Pharmacy: [facility] Prescription Benefit: yes LNOK: Son Darren Hassan Living Arrangements: Apartment, no steps. Pt uses ambulatory DME. children assist with cooking cleaning. Children help with medication set up, cooking and transportation. Pt uses cane in apartment and does own showering, dressing. Tranportation: family drives, pt does not drive. DME: Wheeled Walker, cane, raised toilet seat, shower chair, grab bars, hand held shower.Pt may need Home oxygen on dc. States no preference but would like local provider [facility] Providers for Home Oxygen: [facility] HHC: none currently. Pt will consider on dc if recommended. [facility] for [facility] Dual: [facility], [facility], [facility] SNF: none Patient DC Goals: Home on discharge DC Plan: anticipate home. May benefit from HHC and will need Home oxygen testing prior to discharge. CM available for discharge planning coordination. Contact CM for any concerns/needs that may arise. Josue GARCESN RN ACM
[2020-03-05] MEDS: Citalopram 40 MG TABLET PO (11:50)
[2020-03-05] MEDS: Gabapentin 800 MG Tablet PO (11:50)
[2020-03-05] MEDS: guaiFENesin 1,200 MG Tablet 1200 MG PO ×2 (11:51→21:06)
[2020-03-05] MEDS: Aspirin 81 MG TAB.CHEW PO (11:51)
[2020-03-05] MEDS: Enoxaparin 40 MG/0.4 ML Syringe SC (11:52)
[2020-03-05] MEDS: Acetaminophen 325 MG Tablet 650 MG PO ×2 (11:56→18:28)
--- NOTE | 2020-03-05 12:07 | PCM.PROGNOTE ---
<Sylvia Agrawal - Last Filed: 03/05/20 12:11> Patient Problems: Active and Suspected Problems (Last Updated 03/04/20 @ 05:[address] Juve Patino MD) COPD exacerbation (Acute) Community acquired pneumonia (Acute) Subjective: Patient seen and examined. States she feels worse today than yesterday. Reports increased productive cough and shortness of breath. Denies fever, chills. - Physical Exam Vitals/I&O's: Vital Signs Temp Pulse Resp BP Pulse Ox 98.3 F 105 H 20 H 128/70 H 94 03/05/20 11:38 03/05/20 11:38 03/05/20 11:46 03/05/20 11:38 03/05/20 11:38 Oxygen Flow Rate (L/min) 2 Oxygen Delivery Method Nasal Cannula Weight: 139 lb 15.896 oz Body Mass Index (BMI) 26.4 Intake and Output for Last 24 Hours 03/03/20 03/04/20 03/05/20 23:59 23:59 23:59 Intake Total 1885.25 / 1885.25 563.25 / 563.25 Output Total 0 / 0 0 / 0 Balance 1885.25 / 1885.25 563.25 / 563.25 General: Alert, Oriented x3, Cooperative HEENT: Atraumatic, PERRLA, EOMI, Normocephalic Neck: Supple, No JVD, Negative Carotid Bruits Lungs: Clear to auscultation, Diminished Cardiovascular: Regular rate, No murmurs Abdomen: Bowel Sounds Present, Soft, Non Tender, Non-Distended Extremities: No clubbing, No cyanosis, No edema, Capillary Refill Less than 3 Seconds Skin: No rashes, No breakdown Musculoskeletal: No Tenderness to Palpation of Joints or Extremities Neurological: Cranial nerves II-XII grossly intact, Neuro grossly intact Psych/Mental Status: Normal Affect, Appropriate Microbiology Past 72 Hours 03/04/20 11:00 Sputum, Expectorated/Coughed Gram Stain - Final 03/04/20 11:00 Sputum, Expectorated/Coughed Respiratory Culture - Preliminary Appears to be normal respiratory xin. Further studies to follow. 03/04/20 06:45 Interface Orders Legionella Antigen - Final 03/04/20 06:45 Interface Orders Streptococcus pneumoniae Antigen (M - Final Laboratory Results 03/05/20 06:15: WBC 25.3 H, RBC 4.18 L, Hgb 12.1, Hct 38.1, MCV 91.1, MCH 28.9, MCHC 31.8 L, RDW Std Deviation 55.3 H, RDW Coeff of Tanisha 16.5 H, Plt Count 332, MPV 9.7 03/05/20 06:15: Sodium 138, Potassium 4.9, Chloride 107, Carbon Dioxide 27.0, Anion Gap 4 L, BUN 12, Creatinine 0.60, Estim Creat Clear Calc 70.54, Est GFR (MDRD) Af Amer 128, Est GFR (MDRD) Non-Af 106, BUN/Creatinine Ratio 19.9, Glucose 145 H, Calcium 8.5 Current Medications Acetaminophen (Tylenol) 650 mg PO Q6H PRN PRN PRN Reason: Pain Score 1-10/Temp > 100.7 F Last Admin: 03/05/20 11:56 Dose: 650 mg Documented by: Albuterol/Ipratropium (Duoneb) 3 ml INHALATION Q4HWA.RT [facility] Last Admin: 03/05/20 11:46 Dose: 3 ml Documented by: Amitriptyline HCl (Elavil) 25 mg PO QHS PRN PRN Reason: SLEEP Aspirin (Aspirin, Baby) 81 mg PO DAILY@0800 [facility] Last Admin: 03/05/20 11:51 Dose: 81 mg Documented by: Citalopram Hydrobromide (Celexa) 40 mg PO DAILY [facility] Last Admin: 03/05/20 11:50 Dose: 40 mg Documented by: Clonazepam (Klonopin) 1 mg PO Q8H PRN PRN PRN Reason: ANXIETY Cyclobenzaprine HCl (Flexeril) 10 mg PO TID [facility] Last Admin: 03/05/20 06:12 Dose: Not Given Documented by: Dextrose (D50w Syringe) 0 gm IV X1 PRN; Protocol PRN Reason: Hypoglycemia Enoxaparin Sodium (Lovenox) 40 mg SC DAILY [facility] Last Admin: 03/05/20 11:52 Dose: 40 mg Documented by: Gabapentin (Neurontin) 800 mg PO TIDCM [facility] Last Admin: 03/05/20 11:50 Dose: 800 mg Documented by: Glucagon () 1 mg IM .X1 PRN PRN Reason: Hypoglycemia Guaifenesin (Mucinex) 1,200 mg PO BID [facility] Last Admin: 03/05/20 11:51 Dose: 1,200 mg Documented by: Sodium Chloride () 250 mls @ 15 mls/hr IV .[id number] PRN PRN Reason: Saline Flush Last Infusion: 03/05/20 04:44 Dose: 0 mls/hr Documented by: Sodium Chloride () 250 mls @ 15 mls/hr IV .[id number] PRN PRN Reason: Additional IVPB Infusion Sodium Chloride () 250 mls @ 15 mls/hr IV .[id number] PRN PRN Reason: Saline Flush Sodium Chloride () 250 mls @ 15 mls/hr IV .[id number] PRN PRN Reason: Additional IVPB Infusion Azithromycin 500 mg/ Dextrose 255 mls @ 250 mls/hr IV Q24H [facility] Stop: 03/06/20 23:02 Last Infusion: 03/05/20 00:11 Dose: Infused Documented by: Ceftriaxone Sodium (Rocephin) 1 gm in 50 mls @ 100 mls/hr IV Q24H [facility] Last Infusion: 03/04/20 22:51 Dose: Infused Documented by: Melatonin (Melatonin) 3 mg PO QHS PRN PRN PRN Reason: INSOMNIA Nicotine (Nicoderm Cq (Pbkc)) 21 mg TRANSDERM. DAILY [facility] Last Admin: 03/05/20 11:51 Dose: 21 mg Documented by: Ondansetron HCl (Zofran) 4 mg IV Q8H PRN PRN PRN Reason: NAUSEA/VOMITING Sodium Chloride () 10 - 40 ml IV UD PRN PRN Reason: SALINE FLUSH Last Admin: 03/05/20 06:10 Dose: 20 ml Documented by: Medical Necessity - Tobacco Use Smoking Status: Current every day smoker Assessment/Plan All Active Problems (Last Updated 03/04/20 @ 05:[address] Juve Patino MD) COPD exacerbation (Acute) Community acquired pneumonia (Acute) 1. Sepsis secondary to community-acquired pneumonia-chest CTA on admission with right middle lobe and upper lobes consolidation. WBC 29, tachycardic, tachypneic on admission. Lactic acid normal. IV Rocephin and IV azithromycin. COVID negative. 2. Acute hypoxic respiratory insufficiency secondary to community-acquired pneumonia and exacerbation of COPD-patient reports she has never had PFTs or followed with pulmonary medicine. Continue IV Solu-Medrol. Albuterol and DuoNeb aerosols. Continue supplement oxygen to maintain O2 at or above 90%. Walking pulse ox prior to discharge. 3. Hypovolemic hyponatremia-resolved with IV fluids. 4. Anxiety/PTSD-continue home Klonopin, Celexa, amitriptyline. 5. Tobacco dependence-encouraged cessation. Nicotine replacement patch. 6. Chronic neuropathy-continue gabapentin regimen. 7. GERD-continue PPI. DVT prophylaxis-Lovenox subcu This patient was seen by EMILIANA Miranda under the supervision of Dr. Bennett. <Moose Bennett E - Last Filed: 03/05/20 12:44> - Physical Exam Vitals/I&O's: Vital Signs Temp Pulse Resp BP Pulse Ox 98.3 F 105 H 20 H 128/70 H 94 03/05/20 11:38 03/05/20 11:38 03/05/20 11:46 03/05/20 11:38 03/05/20 11:38 Oxygen Flow Rate (L/min) 2 Oxygen Delivery Method Nasal Cannula Weight: 139 lb 15.896 oz Body Mass Index (BMI) 26.4 Intake and Output for Last 24 Hours 03/03/20 03/04/20 03/05/20 23:59 23:59 23:59 Intake Total 1885.25 / 1885.25 563.25 / 563.25 Output Total 0 / 0 0 / 0 Balance 1885.25 / 1885.25 563.25 / 563.25 Microbiology Past 72 Hours 03/04/20 11:00 Sputum, Expectorated/Coughed Gram Stain - Final 03/04/20 11:00 Sputum, Expectorated/Coughed Respiratory Culture - Preliminary Appears to be normal respiratory xin. Further studies to follow. 03/04/20 06:45 Interface Orders Legionella Antigen - Final 03/04/20 06:45 Interface Orders Streptococcus pneumoniae Antigen (M - Final Laboratory Results 03/05/20 06:15: WBC 25.3 H, RBC 4.18 L, Hgb 12.1, Hct 38.1, MCV 91.1, MCH 28.9, MCHC 31.8 L, RDW Std Deviation 55.3 H, RDW Coeff of Tanisha 16.5 H, Plt Count 332, MPV 9.7 03/05/20 06:15: Sodium 138, Potassium 4.9, Chloride 107, Carbon Dioxide 27.0, Anion Gap 4 L, BUN 12, Creatinine 0.60, Estim Creat Clear Calc 70.54, Est GFR (MDRD) Af Amer 128, Est GFR (MDRD) Non-Af 106, BUN/Creatinine Ratio 19.9, Glucose 145 H, Calcium 8.5 Current Medications Acetaminophen (Tylenol) 650 mg PO Q6H PRN PRN PRN Reason: Pain Score 1-10/Temp > 100.7 F Last Admin: 03/05/20 11:56 Dose: 650 mg Documented by: Albuterol/Ipratropium (Duoneb) 3 ml INHALATION Q4HWA.RT [facility] Last Admin: 03/05/20 11:46 Dose: 3 ml Documented by: Amitriptyline HCl (Elavil) 25 mg PO QHS PRN PRN Reason: SLEEP Aspirin (Aspirin, Baby) 81 mg PO DAILY@0800 [facility] Last Admin: 03/05/20 11:51 Dose: 81 mg Documented by: Citalopram Hydrobromide (Celexa) 40 mg PO DAILY [facility] Last Admin: 03/05/20 11:50 Dose: 40 mg Documented by: Clonazepam (Klonopin) 1 mg PO Q8H PRN PRN PRN Reason: ANXIETY Cyclobenzaprine HCl (Flexeril) 10 mg PO TID [facility] Last Admin: 03/05/20 06:12 Dose: Not Given Documented by: Dextrose (D50w Syringe) 0 gm IV X1 PRN; Protocol PRN Reason: Hypoglycemia Enoxaparin Sodium (Lovenox) 40 mg SC DAILY [facility] Last Admin: 03/05/20 11:52 Dose: 40 mg Documented by: Gabapentin (Neurontin) 800 mg PO TIDCM [facility] Last Admin: 03/05/20 11:50 Dose: 800 mg Documented by: Glucagon () 1 mg IM .X1 PRN PRN Reason: Hypoglycemia Guaifenesin (Mucinex) 1,200 mg PO BID [facility] Last Admin: 03/05/20 11:51 Dose: 1,200 mg Documented by: Sodium Chloride () 250 mls @ 15 mls/hr IV .[id number] PRN PRN Reason: Saline Flush Last Infusion: 03/05/20 04:44 Dose: 0 mls/hr Documented by: Sodium Chloride () 250 mls @ 15 mls/hr IV .[id number] PRN PRN Reason: Additional IVPB Infusion Sodium Chloride () 250 mls @ 15 mls/hr IV .[id number] PRN PRN Reason: Saline Flush Sodium Chloride () 250 mls @ 15 mls/hr IV .[id number] PRN PRN Reason: Additional IVPB Infusion Azithromycin 500 mg/ Dextrose 255 mls @ 250 mls/hr IV Q24H [facility] Stop: 03/06/20 23:02 Last Infusion: 03/05/20 00:11 Dose: Infused Documented by: Ceftriaxone Sodium (Rocephin) 1 gm in 50 mls @ 100 mls/hr IV Q24H [facility] Last Infusion: 03/04/20 22:51 Dose: Infused Documented by: Melatonin (Melatonin) 3 mg PO QHS PRN PRN PRN Reason: INSOMNIA Nicotine (Nicoderm Cq (Pbkc)) 21 mg TRANSDERM. DAILY [facility] Last Admin: 03/05/20 11:51 Dose: 21 mg Documented by: Ondansetron HCl (Zofran) 4 mg IV Q8H PRN PRN PRN Reason: NAUSEA/VOMITING Sodium Chloride () 10 - 40 ml IV UD PRN PRN Reason: SALINE FLUSH Last Admin: 03/05/20 06:10 Dose: 20 ml Documented by: Assessment/Plan Hospitalist note: I am seeing this patient in conjunction with Sylvia Agrawal. I independently seen and examined the patient. Progress note above, laboratory data and imaging studies reviewed and I concur with the above treatment plan. Today, patient mentioned that he is feeling little worse than yesterday, more short of breath and still having productive cough with yellow sputum. She denies fever chills. She still requiring oxygen of up to 2 L. She never been oxygen. - Physical Exam General: Alert, Oriented x3, Cooperative, No apparent distress. HEENT: Atraumatic, PERRLA, EOMI. Neck: Supple, No JVD, Negative Carotid Bruits, Trachea Midline, Thyroid Normal. Lungs: Diminished breath sounds bilateral, scattered rhonchi, No wheeze, No rales. Cardiovascular: Regular rate, Regular Rhythm, Normal S1, Normal S2, PMI Normal. Abdomen: Bowel Sounds Present, Soft, Non Tender, Non-Distended, No Hepato-splenomegaly. Extremities: No clubbing, No cyanosis, No edema Skin: No rashes, No breakdown Neurological: Cranial nerves are intact, neuro grossly intact. Assessment and plan: #1 community-acquired pneumonia: She is on IV Rocephin and Zithromax. Pneumococcal antigen was negative. Sputum culture revealed no respiratory xin, final is pending. Blood culture showed no growth. Testing for COVID-19 came back negative. WBC is trending down but remain the same as yesterday. CTA chest showed no PE or dissection, revealed right middle and upper lobe consolidation. Plan to continue same treatment. #2 acute COPD exacerbation/acute hypoxic respiratory insufficiency: She is on IV antibiotics as above as well as IV steroids and bronchodilators. Plan as above. #3 hyponatremia: Seems to be hypovolemic, resolved with IV fluids. #4 other chronic medical problems: Stable, continue current medications as above. This note was generated with [employer] dictation software. It may contain incorrect words, spelling, and punctuation that were not noted in checking the note before signing. Inpatient E&M: [id number] Subs Hosp L2
[2020-03-05] MEDS: cycloBENZAPRine HCl 10 MG Tablet PO ×2 (15:22→21:06)
[2020-03-05] MEDS: clonazePAM 1 MG Tablet PO (18:27)
--- NOTE | 2020-03-05 20:56 | CPS ---
Addendum entered by Clarita Mills 03/05/20 20:57: Original Note: pt doesn't have bipap at home and does not want it .on tonight
[2020-03-05] MEDS: Ceftriaxone 1 GM/50 ML BAG IV (22:37)
[2020-03-05] MEDS: Amitriptyline 25 MG Tablet PO (23:20)
[2020-03-06] VITALS (8 sets, daily range): BP systolic 127–144; BP diastolic 72–74; PULSE 84–105; RESP 16–18; TEMP 36.6–37; O2SAT 85–96
[2020-03-06 05:36] LABS: Hematocrit 35.8 % (37-47); Hemoglobin 11.1 g/dL (12.0-15.0); Mean Corpuscular Hgb 28.9 pg (27.0-32.0); Mean Corpuscular Volume 93.2 fL (81-99); Mean Platelet Vol. 9.4 fl (6.2-12.0); Platelet Count 346 K/mm3 (150-450); RBC Distribution Width CV 17.1 % (11.6-14.6); RBC Distribution Width SD 58.1 fl (35.1-43.9); Red Blood Count 3.84 M/mm3 (4.2-5.4); White Blood Count 21.5 K/mm3 (4.4-11.0)
[2020-03-06] MEDS: 0.9% Saline Lock 10 ML Syringe IV (06:03)
[2020-03-06] MEDS: Ipratropium/Albuterol Sulfate 3 ML AMPUL.NEB INHALATION ×2 (07:22→11:14)
[2020-03-06 09:47] LABS: Pathologist Review Reviewed
[2020-03-06] MEDS: Citalopram 40 MG TABLET PO (10:02)
[2020-03-06] MEDS: guaiFENesin 1,200 MG Tablet 1200 MG PO (10:03)
[2020-03-06] MEDS: Enoxaparin 40 MG/0.4 ML Syringe SC (10:03)
[2020-03-06] MEDS: Aspirin 81 MG TAB.CHEW PO (10:03)
--- NOTE | 2020-03-06 11:53 | PCM.DC ---
- Discharge Diagnoses Current Active Problems: Current Active and Chronic Problems (Last Updated 03/04/20 @ 05:[address] Juve Patino MD) COPD exacerbation (Acute) Community acquired pneumonia (Acute) You will use the following diet at home:: No restrictions Discharge Activity: Return to Normal Activity Call your doctor if you observe: Fever of 101 or Higher, Shortness of breath, Dizziness, Fainting spells, Chest pain Allergies/Adverse Reactions: Allergies tramadol Allergy (Verified 03/03/20 21:03) Anaphylaxis Medications to take at Discharge Aspirin [Aspirin, Baby] 81 mg PO DAILY@0800 03/28/14 Citalopram Hydrobromide [Celexa] 40 mg PO DAILY 03/28/14 Clonazepam [Klonopin] 1 mg PO TID 03/28/14 Gabapentin [Neurontin] 800 mg PO TIDCM 09/07/16 Amitriptyline HCl 25 mg PO QHS PRN 03/03/20 Cyclobenzaprine HCl 10 mg PO TID 03/03/20 Denosumab [Prolia] 60 mg SQ 03/04/20 Naproxen 500 mg PO BID PRN 03/04/20 Omeprazole 40 mg PO DAILY PRN 03/04/20 Albuterol Inhaler [Ventolin Hfa] 1 - 2 puff INHALATION Q4H PRN PRN #1 inhaler 03/06/20 Amox/Clavulanate Tablet [Augmentin Tablet] 875 mg PO Q12H #12 tab 03/06/20 Prednisone See Taper PO DAILY #30 tab 03/06/20 The following prescriptions were given: Amox/Clavulanate Tablet [Augmentin Tablet] 875 mg PO Q12H #12 tab Transmission Status: Pending to [facility] #30 Prednisone See Taper PO DAILY #30 tab Transmission Status: Pending to [facility] Albuterol Inhaler [Ventolin Hfa] 1 - 2 puff INHALATION Q4H PRN PRN #1 inhaler PRN Reason: Shortness Of Breath Transmission Status: Pending to [facility] Primary Care Physician: Xavier Brownlee MD [Primary Care Provider] - Please follow up with your Primary Care Physician in: 1 Week Test Results: Test results from this visit will be discussed in further detail at your follow-up appointment, if applicable. Please Follow Up With: Singh Wade, DO - Pulmonary Medicine When: 2 weeks, call to establish Proposed Discharge Date: 03/06/20
--- NOTE | 2020-03-06 12:05 | PCM.DC.SUM ---
<Sylvia Agrawal - Last Filed: 03/06/20 12:10> Discharge Date and Diagnosis Date of Admission: 03/04/20 Date of Discharge: 03/06/20 - Primary Discharge Diagnosis Acute Problems: Active Problems (Last Updated 03/04/20 @ 05:[address] Juve Patino MD) 1. Sepsis secondary to community-acquired pneumonia 2. Acute hypoxic respiratory insufficiency secondary to community-acquired pneumonia and exacerbation of COPD 3. Hypovolemic hyponatremia 4. Anxiety/PTSD 5. Tobacco dependence 6. Chronic neuropathy 7. GERD Hospital Course and Treatment Imaging Results: Diagnostic Data Chest X-Ray 03/03/20 21:25 IMPRESSION: No acute cardiopulmonary process. Electronically Signed: Vivian Saenz MD at 22:06 EDT Tel , Service support , Chest CTA 03/03/20 22:04 IMPRESSION: No demonstrated pulmonary embolism or arterial dissection. Scattered tree-in-bud opacities associated with consolidation consolidation within the right middle and upper lobes and to less extent within the lower lobes, may be secondary to an infectious process. Enlarged mediastinal and right hilar lymph nodes, possibly reactive. Atherosclerosis. Electronically Signed: Vivian Saenz MD at 23:08 EDT Tel , Service support , Operations: None Procedures: None Summary of Care Provided: The patient is a 64 year old F admitted 03/04/2020 due to shortness of breath. 1. Sepsis secondary to community-acquired pneumonia-chest CTA on admission with right middle lobe and upper lobes consolidation. WBC 29, tachycardic, tachypneic on admission. Lactic acid normal. IV Rocephin and IV azithromycin during admission. COVID negative. Patient completed 3 doses of IV azithromycin. Discharged on oral Augmentin to complete course of antibiotics. Follow-up with primary care physician in 1 week. 2. Acute hypoxic respiratory insufficiency secondary to community-acquired pneumonia and exacerbation of COPD-patient reports she has never had PFTs or followed with pulmonary medicine. IV Solu-Medrol during admission. Ambulatory pulse ox completed prior to discharge and patient will require further supplemental oxygen at discharge. She is ambulatory in the home. Continue supplement oxygen to maintain O2 sat above 90%. Patient will follow-up with pulmonary medicine in 2 weeks to establish. 3. Hypovolemic hyponatremia-resolved with IV fluids. 4. Anxiety/PTSD-continue home Klonopin, Celexa, amitriptyline. 5. Tobacco dependence-encouraged cessation. Nicotine replacement patch. 6. Chronic neuropathy-continue gabapentin regimen. 7. GERD-continue PPI. General: Alert, Oriented x3, Cooperative HEENT: Atraumatic, PERRLA, EOMI, Normocephalic Neck: Supple, No JVD, Negative Carotid Bruits Lungs: Clear to auscultation, Diminished Cardiovascular: Regular rate, No murmurs Abdomen: Bowel Sounds Present, Soft, Non Tender, Non-Distended Extremities: No clubbing, No cyanosis, No edema, Capillary Refill Less than 3 Seconds Skin: No rashes, No breakdown Musculoskeletal: No Tenderness to Palpation of Joints or Extremities Neurological: Cranial nerves II-XII grossly intact, Neuro grossly intact Psych/Mental Status: Normal Affect, Appropriate Patient seen and examined prior to discharge. Physical assessment as noted above. Patient is stable for discharge with follow up recommendations as noted above. This patient was seen by EMILIANA Miranda under the supervision of Dr. Bennett. - Physical Exam Vitals/I&O's: Vital Signs Temp Pulse Resp BP Pulse Ox 98.6 F 99 16 144/74 H 96 03/06/20 09:00 03/06/20 11:14 03/06/20 11:14 03/06/20 09:00 03/06/20 09:00 Oxygen Flow Rate (L/min) 2 Oxygen Delivery Method Nasal Cannula Weight: 139 lb 15.896 oz Body Mass Index (BMI) 26.4 Intake and Output for Last 24 Hours 03/04/20 03/05/20 03/06/20 23:59 23:59 23:59 Intake Total 1885.25 / 1885.25 1588.25 / 1588.25 50 / 50 Output Total 0 / 0 0 / 0 Balance 1885.25 / 1885.25 1588.25 / 1588.25 50 / 50 Microbiology Past 72 Hours 03/03/20 21:20 Blood Culture (Wb) #2 - Anticubital Right Blood Culture - Preliminary No growth in 48 hours. 03/03/20 21:12 Blood Culture (Wb) - Anticubital Left Blood Culture - Preliminary No growth in 48 hours. 03/04/20 11:00 Sputum, Expectorated/Coughed Gram Stain - Final 03/04/20 11:00 Sputum, Expectorated/Coughed Respiratory Culture - Preliminary Appears to be normal respiratory xin. Further studies to follow. 03/04/20 06:45 Interface Orders Legionella Antigen - Final 03/04/20 06:45 Interface Orders Streptococcus pneumoniae Antigen (M - Final Laboratory Results 03/03/20 20:50: Diff Path Review Reviewed 03/06/20 04:50: WBC 21.5 H, RBC 3.84 L, Hgb 11.1 L, Hct 35.8 L, MCV 93.2, MCH 28.9, MCHC 31.0 L, RDW Std Deviation 58.1 H, RDW Coeff of Tanisha 17.1 H, Plt Count 346, MPV 9.4 Current Medications Acetaminophen (Tylenol) 650 mg PO Q6H PRN PRN PRN Reason: Pain Score 1-10/Temp > 100.7 F Last Admin: 03/05/20 18:28 Dose: 650 mg Documented by: Albuterol Sulfate (Ventolin Aerosols) 2.5 mg INHALATION Q2H PRN PRN PRN Reason: SHORTNESS OF BREATH Albuterol/Ipratropium (Duoneb) 3 ml INHALATION Q4HWA.RT [facility] Last Admin: 03/06/20 11:14 Dose: 3 ml Documented by: Amitriptyline HCl (Elavil) 25 mg PO QHS PRN PRN Reason: SLEEP Last Admin: 03/05/20 23:20 Dose: 25 mg Documented by: Aspirin (Aspirin, Baby) 81 mg PO DAILY@0800 [facility] Last Admin: 03/06/20 10:03 Dose: 81 mg Documented by: Citalopram Hydrobromide (Celexa) 40 mg PO DAILY [facility] Last Admin: 03/06/20 10:02 Dose: 40 mg Documented by: Clonazepam (Klonopin) 1 mg PO Q8H PRN PRN PRN Reason: ANXIETY Last Admin: 03/05/20 18:27 Dose: 1 mg Documented by: Cyclobenzaprine HCl (Flexeril) 10 mg PO TID [facility] Last Admin: 03/06/20 06:03 Dose: Not Given Documented by: Dextrose (D50w Syringe) 0 gm IV X1 PRN; Protocol PRN Reason: Hypoglycemia Enoxaparin Sodium (Lovenox) 40 mg SC DAILY [facility] Last Admin: 03/06/20 10:03 Dose: 40 mg Documented by: Gabapentin (Neurontin) 800 mg PO TIDCM [facility] Last Admin: 03/06/20 10:00 Dose: Not Given Documented by: Glucagon () 1 mg IM .X1 PRN PRN Reason: Hypoglycemia Guaifenesin (Mucinex) 1,200 mg PO BID [facility] Last Admin: 03/06/20 10:03 Dose: 1,200 mg Documented by: Sodium Chloride () 250 mls @ 15 mls/hr IV .[id number] PRN PRN Reason: Saline Flush Last Infusion: 03/05/20 04:44 Dose: 0 mls/hr Documented by: Sodium Chloride () 250 mls @ 15 mls/hr IV .[id number] PRN PRN Reason: Additional IVPB Infusion Sodium Chloride () 250 mls @ 15 mls/hr IV .[id number] PRN PRN Reason: Saline Flush Sodium Chloride () 250 mls @ 15 mls/hr IV .[id number] PRN PRN Reason: Additional IVPB Infusion Azithromycin 500 mg/ Dextrose 255 mls @ 250 mls/hr IV Q24H [facility] Stop: 03/06/20 23:02 Last Infusion: 03/05/20 22:08 Dose: Infused Documented by: Ceftriaxone Sodium (Rocephin) 1 gm in 50 mls @ 100 mls/hr IV Q24H [facility] Last Infusion: 03/05/20 23:07 Dose: Infused Documented by: Melatonin (Melatonin) 3 mg PO QHS PRN PRN PRN Reason: INSOMNIA Methylprednisolone (Solu-Medrol) 40 mg IV Q8 [facility] Last Admin: 03/06/20 06:03 Dose: 40 mg Documented by: Nicotine (Nicoderm Cq (Pbkc)) 21 mg TRANSDERM. DAILY [facility] Last Admin: 03/06/20 10:03 Dose: 21 mg Documented by: Ondansetron HCl (Zofran) 4 mg IV Q8H PRN PRN PRN Reason: NAUSEA/VOMITING Sodium Chloride () 10 - 40 ml IV UD PRN PRN Reason: SALINE FLUSH Last Admin: 03/06/20 06:03 Dose: 10 ml Documented by: Discharge Diet: No Restrictions Discharge Activity: Return to Normal Activity Call your doctor if you observe: Fever of 101 or Higher, Shortness of breath, Dizziness, Fainting spells, Chest pain Home Medications: Medications to take at Discharge Aspirin [Aspirin, Baby] 81 mg PO DAILY@0800 03/28/14 Citalopram Hydrobromide [Celexa] 40 mg PO DAILY 03/28/14 Clonazepam [Klonopin] 1 mg PO TID 03/28/14 Gabapentin [Neurontin] 800 mg PO TIDCM 09/07/16 Amitriptyline HCl 25 mg PO QHS PRN 03/03/20 Cyclobenzaprine HCl 10 mg PO TID 03/03/20 Denosumab [Prolia] 60 mg SQ 03/04/20 Naproxen 500 mg PO BID PRN 03/04/20 Omeprazole 40 mg PO DAILY PRN 03/04/20 Albuterol Inhaler [Ventolin Hfa] 1 - 2 puff INHALATION Q4H PRN PRN #1 inhaler 03/06/20 Amox/Clavulanate Tablet [Augmentin Tablet] 875 mg PO Q12H #12 tab 03/06/20 Prednisone See Taper PO DAILY #30 tab 03/06/20 Following Prescrptions Were Given to Patient: Amox/Clavulanate Tablet [Augmentin Tablet] 875 mg PO Q12H #12 tab Transmission Status: Received by [employer] Prednisone See Taper PO DAILY #30 tab Transmission Status: Received by [employer] [facility] [facility] Albuterol Inhaler [Ventolin Hfa] 1 - 2 puff INHALATION Q4H PRN PRN #1 inhaler PRN Reason: Shortness Of Breath Transmission Status: Received by [employer] [facility] Primary Care Physician: Xavier Brownlee MD [Primary Care Provider] - Please follow up with your Primary Care Physician in: 1 Week Please Follow Up With: Singh Wade DO - Pulmonary Medicine When: 2 weeks, call to establish Disposition: Home Minutes spent on discharge:: 35 Patient Condition:: Stable Medical Necessity - Tobacco Use Smoking Status: Current every day smoker Meaningful Use Info Meaningful Use Diagnoses (Choose all that apply): None applicable <Moose Bennett E - Last Filed: 03/06/20 12:34> Hospital Course and Treatment Summary of Care Provided: Hospitalist note: Discharge summary above reviewed and I concur with the above discharge and treatment plan, additions are below.. Patient was admitted because of shortness of breath, wheezing and productive cough and she was found to have sepsis secondary to community-acquired pneumonia as well as acute COPD exacerbation complicated by acute hypoxic respiratory failure. Initial chest x-ray showed no obvious infiltrate or consolidation. CTA chest done and revealed no PE or dissection, revealed scattered consolidation within the right middle and upper lobes consistent with pneumonia. Patient was treated with IV Rocephin and Zithromax. Pneumococcal antigen was negative. Sputum culture revealed normal respiratory xin. Blood culture showed no growth in 48 hours. Patient was treated with IV steroids and bronchodilators for COPD exacerbation. COVID-19 PCR was negative. With above-mentioned treatment, patient symptoms improved and she remained afebrile for more than 24 hours. Ambulatory pulse oximetry performed and her pulse ox dropped down below 88% on room air with ambulation and she did qualify for home oxygen to be able to ambulate and do her daily activities. Patient discharged home in a stable medical condition, discharged on Augmentin, discharged on tapering course of prednisone and albuterol inhaler, discharged on oxygen at 2 L, recommended follow-up with PCP in 1 week, follow-up with pulmonology in 2 weeks. - Physical Exam General: Alert, Oriented x3, Cooperative, No apparent distress. HEENT: Atraumatic, PERRLA, EOMI. Neck: Supple, No JVD, Negative Carotid Bruits, Trachea Midline, Thyroid Normal. Lungs: Diminished breath sounds bilateral, occasional wheezes, no rhonchi or rales. Cardiovascular: Regular rate, Regular Rhythm, Normal S1, Normal S2, PMI Normal. Abdomen: Bowel Sounds Present, Soft, Non Tender, Non-Distended, No Hepato-splenomegaly. Extremities: No clubbing, No cyanosis, No edema Skin: No rashes, No breakdown Neurological: Neuro grossly intact Vital Signs are stable. This note was generated with [employer] software. It may contain incorrect words, spelling, and punctuation that were not noted in checking the note before signing. - Physical Exam Vitals/I&O's: Vital Signs Temp Pulse Resp BP Pulse Ox 98.6 F 99 16 144/74 H 85 03/06/20 09:00 03/06/20 11:14 03/06/20 11:14 03/06/20 09:00 03/06/20 12:15 Oxygen Flow Rate (L/min) [ 4 AMBULATION with Oxygen] Oxygen Flow Rate (L/min) 2 Oxygen Delivery Method Nasal Cannula Weight: 139 lb 15.896 oz Body Mass Index (BMI) 26.4 Intake and Output for Last 24 Hours 03/04/20 03/05/20 03/06/20 23:59 23:59 23:59 Intake Total 1885.25 / 1885.25 1588.25 / 1588.25 290 / 290 Output Total 0 / 0 0 / 0 Balance 1885.25 / 1885.25 1588.25 / 1588.25 290 / 290 Microbiology Past 72 Hours 03/03/20 21:20 Blood Culture (Wb) #2 - Anticubital Right Blood Culture - Preliminary No growth in 48 hours. 03/03/20 21:12 Blood Culture (Wb) - Anticubital Left Blood Culture - Preliminary No growth in 48 hours. 03/04/20 11:00 Sputum, Expectorated/Coughed Gram Stain - Final 03/04/20 11:00 Sputum, Expectorated/Coughed Respiratory Culture - Preliminary Appears to be normal respiratory xin. Further studies to follow. 03/04/20 06:45 Interface Orders Legionella Antigen - Final 03/04/20 06:45 Interface Orders Streptococcus pneumoniae Antigen (M - Final Laboratory Results 03/03/20 20:50: Diff Path Review Reviewed 03/06/20 04:50: WBC 21.5 H, RBC 3.84 L, Hgb 11.1 L, Hct 35.8 L, MCV 93.2, MCH 28.9, MCHC 31.0 L, RDW Std Deviation 58.1 H, RDW Coeff of Tanisha 17.1 H, Plt Count 346, MPV 9.4 Current Medications Acetaminophen (Tylenol) 650 mg PO Q6H PRN PRN PRN Reason: Pain Score 1-10/Temp > 100.7 F Last Admin: 03/05/20 18:28 Dose: 650 mg Documented by: Albuterol Sulfate (Ventolin Aerosols) 2.5 mg INHALATION Q2H PRN PRN PRN Reason: SHORTNESS OF BREATH Albuterol/Ipratropium (Duoneb) 3 ml INHALATION Q4HWA.RT [facility] Last Admin: 03/06/20 11:14 Dose: 3 ml Documented by: Amitriptyline HCl (Elavil) 25 mg PO QHS PRN PRN Reason: SLEEP Last Admin: 03/05/20 23:20 Dose: 25 mg Documented by: Aspirin (Aspirin, Baby) 81 mg PO DAILY@0800 [facility] Last Admin: 03/06/20 10:03 Dose: 81 mg Documented by: Citalopram Hydrobromide (Celexa) 40 mg PO DAILY [facility] Last Admin: 03/06/20 10:02 Dose: 40 mg Documented by: Clonazepam (Klonopin) 1 mg PO Q8H PRN PRN PRN Reason: ANXIETY Last Admin: 03/05/20 18:27 Dose: 1 mg Documented by: Cyclobenzaprine HCl (Flexeril) 10 mg PO TID [facility] Last Admin: 03/06/20 06:03 Dose: Not Given Documented by: Dextrose (D50w Syringe) 0 gm IV X1 PRN; Protocol PRN Reason: Hypoglycemia Enoxaparin Sodium (Lovenox) 40 mg SC DAILY [facility] Last Admin: 03/06/20 10:03 Dose: 40 mg Documented by: Gabapentin (Neurontin) 800 mg PO TIDCM [facility] Last Admin: 03/06/20 10:00 Dose: Not Given Documented by: Glucagon () 1 mg IM .X1 PRN PRN Reason: Hypoglycemia Guaifenesin (Mucinex) 1,200 mg PO BID [facility] Last Admin: 03/06/20 10:03 Dose: 1,200 mg Documented by: Sodium Chloride () 250 mls @ 15 mls/hr IV .[id number] PRN PRN Reason: Saline Flush Last Infusion: 03/05/20 04:44 Dose: 0 mls/hr Documented by: Sodium Chloride () 250 mls @ 15 mls/hr IV .[id number] PRN PRN Reason: Additional IVPB Infusion Sodium Chloride () 250 mls @ 15 mls/hr IV .[id number] PRN PRN Reason: Saline Flush Sodium Chloride () 250 mls @ 15 mls/hr IV .[id number] PRN PRN Reason: Additional IVPB Infusion Azithromycin 500 mg/ Dextrose 255 mls @ 250 mls/hr IV Q24H [facility] Stop: 03/06/20 23:02 Last Infusion: 03/05/20 22:08 Dose: Infused Documented by: Ceftriaxone Sodium (Rocephin) 1 gm in 50 mls @ 100 mls/hr IV Q24H [facility] Last Infusion: 03/05/20 23:07 Dose: Infused Documented by: Melatonin (Melatonin) 3 mg PO QHS PRN PRN PRN Reason: INSOMNIA Methylprednisolone (Solu-Medrol) 40 mg IV Q8 [facility] Last Admin: 03/06/20 06:03 Dose: 40 mg Documented by: Nicotine (Nicoderm Cq (Pbkc)) 21 mg TRANSDERM. DAILY [facility] Last Admin: 03/06/20 10:03 Dose: 21 mg Documented by: Ondansetron HCl (Zofran) 4 mg IV Q8H PRN PRN PRN Reason: NAUSEA/VOMITING Sodium Chloride () 10 - 40 ml IV UD PRN PRN Reason: SALINE FLUSH Last Admin: 03/06/20 06:03 Dose: 10 ml Documented by: Disposition: Home Minutes spent on discharge:: 31 Patient Condition:: Stable Meaningful Use Info Meaningful Use Diagnoses (Choose all that apply): None applicable Inpatient E&M: 43970 Disch Hosp
--- NOTE | 2020-03-06 12:43 | CASEMGMT ---
Per Faye RN, pt needs 4 liters home oxygen at discharge and pt stated no preference for DME company as long as they were local. Script faxed to [employer] at this time. [employer] aware of referral at this time. Pt updated at this time, voices understanding. Pt voices no further questions/concerns/needs at this time. Gretta YI CM
--- NOTE | 2020-03-07 14:07 | CASEMGMT ---
RN CM Discharge F/U Phone Call LACE: 10 Strata: 3 Discharge date: 03/06/2020 Call date: 03/07/2020 Call time: [phone] Attempted to reach pt without success at this time, message left for pt to call this RN CM back if/when able. SStaten RN CM Admission dx: CAP
== END 2020-03-06 15:51 | disposition home or self-care (01) | DRG 194 ==
LOC: ED 03-04 00:39 → PCU 03-04 02:28
PROVIDERS: Nurse Practitioner Family; Admitting Provider Hospitalist; Emergency Provider Emergency Medicine; PCP Family Medicine; Visit Provider Hospitalist
DX: J18.9 Pneumonia, unspecified organism (principal); J44.0 Chronic obstructive pulmonary disease with (acute) lower respiratory infection; J44.1 Chronic obstructive pulmonary disease with (acute) exacerbation; E87.1 Hypo-osmolality and hyponatremia; R09.02 Hypoxemia; E86.1 Hypovolemia; G62.9 Polyneuropathy, unspecified; K21.9 Gastro-esophageal reflux disease without esophagitis; F43.10 Post-traumatic stress disorder, unspecified; F32.9 Major depressive disorder, single episode, unspecified; F41.9 Anxiety disorder, unspecified; F17.200 Nicotine dependence, unspecified, uncomplicated; Z79.899 Other long term (current) drug therapy; Z79.82 Long term (current) use of aspirin; Z79.1 Long term (current) use of non-steroidal anti-inflammatories (NSAID)
CPT/HCPCS: 36415; 36600; 71045; 71275; 80048; 82803; 83605; 83930; 83935; 84300; 84484; 85025; 85027; 85379; 87040; 87070; 87205; 87449; 87635; 93005; 94002; 94003; 94640; 97162; 97166; 97530; 99285; 99406; G2023; J7030; J7050; Q9967; A4216; U0003

== ENCOUNTER → 2020-04-18 16:54 | Outpatient (CLI) | payer MEDICARE, SELFPAY ==
[2020-03-04 01:20] VITALS: BMI 26.4
[2020-04-18 18:01] LABS: BNP,B-Type NATRIURETIC PEPTIDE 42.8 pg/mL (0-100)
== END ==
PROVIDERS: PCP Family Medicine
DX: R60.0 Localized edema (principal); R06.9 Unspecified abnormalities of breathing
CPT/HCPCS: 83880

== ENCOUNTER 2021-06-17 00:53 | Emergency (ER) | payer MEDICARE, MEDICAID, SELFPAY ==
[2021-06-17 00:54] VITALS: BP 169/91; PULSE 92; RESP 14; TEMP 36.7; O2SAT 88; BMI 30.2
--- NOTE | 2021-06-17 01:08 | CT_ITS ---
STUDY: CT BRAIN WITHOUT CONTRAST REASON FOR EXAM: Female, 65 years old. trauma RADIATION DOSAGE (If Supplied By Facility): CTDIvol = ( 44.99 ) mGy, DLP = ( 745.49 ) mGycm TECHNIQUE: Transaxial CT imaging of the brain was performed without administration of intravenous contrast material. Individualized dose optimization techniques were used for this CT. COMPARISON: No relevant priors. FINDINGS: Right frontal scalp hematoma and swelling Normal calvarium. There is mild cerebral atrophy with widening of the extra-axial spaces and ventricular dilatation. There are areas of decreased attenuation within the white matter tracts of the supratentorial brain, consistent with microvascular disease changes. Normal basal ganglia and thalami. Normal brainstem. Normal cerebellum. There is no intracranial hemorrhage. There are no findings of an acute ischemic infarction. Normal visualized paranasal sinuses. CT/Brain/Head without Contrast IMPRESSION: No acute intracranial pathology. Right frontal scalp hematoma and swelling. Electronically Signed: Osman Anguiano DO at 1:59 EDT Tel , Service support ,
--- NOTE | 2021-06-17 01:10 | EDS_ITS ---
HPI History of Present Illness Chief Complaint: Laceration Informant: patient and friend Onset/Context/Timing Onset: Today Mechanism/Context: Blunt Injury Current Severity: Mild Maximum Severity: Mild Associated Symptoms Associated Symptoms: Negative for Parasthesias, Weakness, Loss of function, Inability to ambulate, Loss of consciousness and Amnesia Narrative Narrative: 65-year-old female history of COPD on home O2 to sleep. States she was getting out of her shower tonight and she tripped lost her balance and fell striking her right forehead causing a laceration. This occurred around 1150 tonight. She called her neighbor brought her into the emergency department. She does not believe she had any loss of conscious. She denies any other injuries. She denies any neck pain. She states she is not on any blood thinners. Unsure of her last tetanus shot. Tetanus Immunization: Unknown Prior similar symptoms: No Recent Illness/Hospitalization: No [facility] Medical History COPD (chronic obstructive pulmonary disease) Home Medications aspirin 81 mg PO DAILY@0800 03/28/14 [History Last Taken Unknown] citalopram [Celexa] 40 mg PO DAILY 03/28/14 [History Last Taken Unknown] clonazepam 1 mg PO TID 03/28/14 [History Last Taken Unknown] gabapentin 800 mg PO TIDCM 09/07/16 [History Last Taken Unknown] amitriptyline 25 mg PO QHS PRN 03/03/20 [History Last Taken Unknown] cyclobenzaprine 10 mg PO TID 03/03/20 [History Last Taken Unknown] denosumab 60 mg SQ 03/04/20 [History Last Taken Unknown] naproxen 500 mg PO BID PRN 03/04/20 [History Last Taken Unknown] omeprazole 40 mg PO DAILY PRN 03/04/20 [History Last Taken Unknown] albuterol sulfate 1 - 2 puff INHALATION Q4H PRN PRN #1 inhaler 03/06/20 [Rx Last Taken Unknown] amoxicillin-pot clavulanate 875 mg PO Q12H #12 tab 03/06/20 [Rx Last Taken Unknown] nicotine 21 mg TRANSDERM. DAILY #14 patch 03/06/20 [Rx Last Taken Unknown] prednisone See Taper PO DAILY #30 tab 03/06/20 [Rx Last Taken Unknown] Allergy/AdvReac Type Severity Reaction Status Date / Time tramadol Allergy Anaphylaxis Verified 03/03/20 21:03 acetaminophen [From Percocet] AdvReac Nausea/Vom/ Verified 06/17/21 00:54 Diarrhea oxycodone [From Percocet] AdvReac Nausea/Vom/ Verified 06/17/21 00:54 Diarrhea Social History Smoking Status: Current every day smoker tobacco type: cigarettes ROS ROS ED ROS Narrative Denies recent illness. Review of Systems ROS Unobtainable: Denies due to encephalopathy Constitutional Constitutional ED: Denies chills or fever(s) Eyes Eyes: Denies change in vision ENT ENT ED: Denies ear pain or sore throat Cardiovascular Cardiovascular: Denies chest pain Respiratory/Chest Respiratory/Chest: Denies dyspnea Gastrointestinal Gastrointestinal: Denies abdominal pain Genitourinary Genitourinary ED: Denies dysuria Musculoskeletal Musculoskeletal: Denies myalgias Integumentary Denies rash Neurologic Neurologic: Denies headache(s) Psychiatric Psychiatric: Denies depression Endocrine Endocrinology: Denies polyuria Hematologic/Lymphatic Hematologic/Lymphatic: Denies easy bruising Allergic/Immunologic Allergic/Immunologic ED: Denies urticaria EXAM Physical Exam Narrative Exam Narrative: 65-year-old female in bed. Has an obvious right forehead L- shaped laceration. Vital signs are stable afebrile. HEENT exam she has a contusion bruising and upside down L-shaped laceration on her right forearm which will need obviously sewn. There is a small hematoma. Mild active bleeding that is oozing. No pulsatile bleeding. Pupils round reactive light. She has a mild contusion on her right cheek that is nontender. Dentition intact. Dry reactive light extra motions are intact. Pupils are about 2 mm reactive bilaterally. Posterior scalp nontender. C-spine and trachea nontender. Lungs coarse breath sounds consistent with her COPD. There are distant. Equal and symmetrical. Heart regular rhythm no murmur. Chest wall rib cage nontender. Abdomen soft nontender. Pelvic girdle intact. Patient moving all 4 extremities. She has normal range of motion. No deformity. They are nontender. Back and spine are nontender. Neurologically she is awake and alert with no focal motor deficits. Const Vital Signs: 06/17/21 00:54 Temperature 98.1 F Temperature Source Temporal Pulse Rate 92 Respiratory Rate 14 Blood Pressure 169/91 H Blood Pressure Mean 117 Pulse Ox 88 Oxygen Delivery Method Room Air Positive well nourished and well developed; Negative for cachectic, contractures or unkempt General Appearance ED: well developed and NAD; Negative for unkempt, cachectic or contractures Nutritional Appearance: Negative for cachectic HEENT HEENT Narrative: Right forehead laceration with contusion and small hematoma. trauma and tenderness Eyes PERRL and EOMs intact bilaterally Neck full ROM General: Negative for tenderness Chest Wall inspection of chest normal and palpation of chest normal Resp normal respiratory effort and clear to auscultation bilaterally Auscultation: Negative for rales, rhonchi or wheezes Cardio regular rhythm, S1 normal heart sound, S2 normal heart sound and no murmurs Rate: regular rate GI normal to inspection, nondistended, normoactive bowel sounds, non-tender, non- distended and no masses Inspection: Negative for abdominal distention Auscultation: normoactive bowel sounds Palpation: soft; Negative for tender, guarding or rebound tenderness present Back/Spine normal to inspection and no thoracic nor lumbar tenderness General Back: Negative for CVA tenderness Thoracic Spine / Upper Back: Negative for thoracic spinal tenderness Extremity normal to inspection and full ROM General Extremety ED: Negative for deformity, edema or tenderness General Extremity: Negative for deformity or edema Neuro oriented x3, moves all extremities and no focal motor deficits Korina Coma Scale: document GCS findings Spontaneous Obeys Commands Oriented 15 Sensorium / Orientation: alert, oriented to person, oriented to place and oriented to time; Negative for orientation impaired, lethargic or stuporous Motor Exam: strength 5/5 throughout Psych mental status grossly normal and thought process normal Appearance: Negative for unkempt Skin no rashes or lesions noted, No no wounds and no jaundice Skin Narrative: Right forehead laceration will need repaired. Wounds: wounds noted PROC Procedures Lacerations Right forehead laceration: Length: 1.97 in Depth: Sub Q Shape: Flap Prep: Sterile Conditions and Shure-Clens Laceration repair: Irrigated, Lidocaine with epi, Local, Skin sutures and Wound explored Suture Information: Ethilon and 4-0 Comment: #5 4-0 Ethilon sutures to close the wound nicely. Patient tolerated it well. She was instructed on wound care and suture removal. YEHUDA MDM MDM Narrative Medical decision making narrative: 65-year-old fall with right forehead laceration and trauma. CT of her brain to be obtained. Tetanus updated. I will eventually locally anesthetize clean, explore and close her right forehead laceration. Repeat exam patient is doing well at 3 AM. CAT scan showed no acute intracranial abnormality. No fracture. There was a soft tissue hematoma which is expected. Procedure note: Right forearm laceration. Is about a 2-1/2 inch laceration right forehead. Involves the skin and subcu tissue. Down to the bone. There is no foreign body noted. Was cleaned with Shur-Clens washed with saline. Explored. Locally anesthetized with lidocaine and closed using 5 simple interrupted 4-0 Ethilon sutures. Proper hemostasis wound closure is obtained. Patient tolerated procedure well. She was instructed on wound care and suture removal in 10 days. Radiography Diagnostic Testing: Radiology Impression Brain CT 06/17/21 01:08 IMPRESSION: No acute intracranial pathology. Right frontal scalp hematoma and swelling. Electronically Signed: Osman Anguiano DO at 1:59 EDT Tel , Service support , Discharge Plan Triage Chief Complaint: Laceration ED Provider: Michael Alfredo Dx/Rx/DC Orders Clinical Impression: Fall, Closed head injury, Forehead laceration Instructions: ED Head Injury (Adult), ED Laceration: All Closures Prescriptions: No Action citalopram [Celexa] 40 MG tablet 40 mg PO DAILY RF: 0 clonazepam 1 MG tablet 1 mg PO TID RF: 0 aspirin 81 MG Tab.Chew 81 mg PO DAILY@0800 RF: 0 gabapentin 600 MG tablet 800 mg PO TIDCM RF: 0 cyclobenzaprine 10 MG tablet 10 mg PO TID RF: 0 amitriptyline 25 MG tablet 25 mg PO QHS PRN (Reason: Sleep) RF: 0 omeprazole 40 MG capsule,delayed release(DR/EC) 40 mg PO DAILY PRN (Reason: GERD) RF: 0 naproxen 500 MG tablet 500 mg PO BID PRN (Reason: Pain) RF: 0 denosumab 60 mg/mL syringe 60 mg SQ RF: 0 prednisone 10 MG tablet See Taper mg PO DAILY Qty: 30 RF: 0 amoxicillin-pot clavulanate 875 MG tablet 875 mg PO Q12H Qty: 12 RF: 0 albuterol sulfate 1 INHALER inhaler 1 - 2 puff inhalation Q4H PRN PRN (Reason: Shortness Of Breath) Qty: 1 RF: 0 nicotine 21 MG patch 21 mg TRANSDERM. DAILY Qty: 14 RF: 0 Primary Care Provider: Xavier Brownlee Referrals: Xavier Brownlee MD [Primary Care Provider] - 10 Day for suture removal Activity Restrictions/Additional Instructions: Keep the wound clean. Wash daily with soap and water or peroxide and water. Apply antibiotic ointment daily. Stitches out in 10 days. You can return here or follow-up with your primary care physician. Ice to the forehead and wound to decrease pain and swelling. Tylenol for pain. She does have a closed head injury. This should improve. If she starts having intractable vomiting, complaining of very severe headache or not acting right she needs to return to be reevaluated. Her CAT scan tonight showed no bleeding inside her skull or brain. Disposition Disposition: Home, Self Care
[2021-06-17] MEDS: Lidocaine 1% /Epi 1:100 (20ml) 20 ML Vial 8 ML INFILT (01:14)
[2021-06-17] MEDS: Diphth,Pertuss(Acell),Tet Vac 0.5 ML Vial IM (01:14)
[2021-06-17] MEDS: Lidocaine/Epi/Tetracaine 50 ML 1 APPLIC TOPICAL (01:16)
[2021-06-17] MEDS: Acetaminophen 500 MG Tablet 1000 MG PO (02:45)
[2021-06-17 03:12] VITALS: PULSE 84
== END 2021-06-17 03:14 | disposition home or self-care (01) ==
PROVIDERS: Emergency Provider Emergency Medicine; PCP Family Medicine
DX: S01.81XA Laceration without foreign body of other part of head, initial encounter (principal); F17.210 Nicotine dependence, cigarettes, uncomplicated; W19.XXXA Unspecified fall, initial encounter; Z99.81 Dependence on supplemental oxygen
CPT/HCPCS: 12011; 70450; 90715; 96372; 99284; A4216

== ENCOUNTER 2022-02-25 14:28 | Emergency (ER) | payer MEDICARE, MEDICAID, SELFPAY ==
[2022-02-25 14:29] VITALS: BP 172/84; PULSE 97; RESP 16; TEMP 36; O2SAT 95; BMI 26.4
--- NOTE | 2022-02-25 14:45 | EDS_ITS ---
HPI History of Present Illness Chief Complaint: Head Injury Narrative Narrative: 66-year-old female presenting for evaluation of a laceration which occurred yesterday at about 8 PM. Patient states that she had a mechanical fall in which she tripped and fell backwards hitting her head. She denies LOC. She is on aspirin but states she is not on any other anticoagulation. She states that initially EMS was called, but EMS was unable to get her out of [place] and she decided to just go home. She had 1 episode of nausea/vomiting last night but has not had any more of this. She states she has chronic difficulty walking but has not noted debility, dizziness, lightheadedness, blurry vision. She denies neck pain. She has chronic back pain which is on changes. To some superficial abrasions to the bilateral hands and forearms from the fall. She states that she did not want to come to the emergency room but her family urged her to have her laceration evaluated. She states that her tetanus immunization is up-to-date. [facility] Medical History COPD (chronic obstructive pulmonary disease) Home Medications aspirin 81 mg PO DAILY@0800 03/28/14 [History Last Taken Unknown] citalopram [Celexa] 40 mg PO DAILY 03/28/14 [History Last Taken Unknown] clonazepam 1 mg PO TID 03/28/14 [History Last Taken Unknown] gabapentin 800 mg PO TIDCM 09/07/16 [History Last Taken Unknown] amitriptyline 25 mg PO QHS PRN 03/03/20 [History Last Taken Unknown] cyclobenzaprine 10 mg PO TID 03/03/20 [History Last Taken Unknown] denosumab 60 mg SQ 03/04/20 [History Last Taken Unknown] naproxen 500 mg PO BID PRN 03/04/20 [History Last Taken Unknown] omeprazole 40 mg PO DAILY PRN 03/04/20 [History Last Taken Unknown] albuterol sulfate 1 - 2 puff INHALATION Q4H PRN PRN #1 inhaler 03/06/20 [Rx Last Taken Unknown] amoxicillin-pot clavulanate 875 mg PO Q12H #12 tab 03/06/20 [Rx Last Taken Unknown] nicotine 21 mg TRANSDERM. DAILY #14 patch 03/06/20 [Rx Last Taken Unknown] prednisone See Taper PO DAILY #30 tab 03/06/20 [Rx Last Taken Unknown] Allergy/AdvReac Type Severity Reaction Status Date / Time tramadol Allergy Anaphylaxis Verified 09/24/21 17:00 acetaminophen [From Percocet] AdvReac Nausea/Vom/ Verified 09/24/21 17:00 Diarrhea oxycodone [From Percocet] AdvReac Nausea/Vom/ Verified 09/24/21 17:00 Diarrhea Social History Smoking Status: Current every day smoker tobacco type: cigarettes ROS ROS ED Constitutional Constitutional ED: Denies chills or fever(s) Eyes Eyes: Denies blurry vision ENT ENT ED: Denies rhinorrhea or sore throat Cardiovascular Cardiovascular: Denies chest pain or palpitations Respiratory/Chest Respiratory/Chest: Denies cough or dyspnea Gastrointestinal Gastrointestinal: Reports nausea and vomiting Genitourinary Genitourinary ED: Denies dysuria or hematuria Musculoskeletal Musculoskeletal: Reports back pain; Denies neck pain Integumentary Reports other Details: Multiple superficial abrasions over the bilateral hands and forearm ; Denies rash Neurologic Neurologic: Reports headache(s); Denies weakness Psychiatric Psychiatric: Denies anxiety or depression EXAM Physical Exam Const Vital Signs: 02/25/22 14:29 02/25/22 14:37 Temperature 96.8 F L Temperature Source Temporal Pulse Rate 97 Respiratory Rate 16 Respiratory Effort Normal Blood Pressure 172/84 H Blood Pressure Mean 113 Pulse Ox 95 Oxygen Delivery Method Room Air Positive well nourished General Appearance ED: NAD HEENT HEENT Narrative: Approximately 1.5 cm scalp laceration on the occiput with no active bleeding. No skull deformity. The wound is approximated. There is mild tenderness around this area. Eyes PERRL Neck full ROM General: Negative for tenderness Resp normal respiratory effort and clear to auscultation bilaterally Cardio regular rhythm Rate: regular rate Neuro oriented x3, CN's II-XII intact bilaterally, moves all extremities, no focal motor deficits and no sensory deficits noted Sensorium / Orientation: alert and oriented to person Psych mental status grossly normal Skin No no jaundice Skin Narrative: Multiple superficial abrasions of the bilateral hands and forearm. Laceration scalp as described above. MDM MDM MDM Narrative Medical decision making narrative: Patient presenting with a laceration to the scalp which is well approximated and is not actively bleeding. I counseled her that she is at 18 hours which is typically not sutured but also that her laceration does not require sutures its not bleeding and its approximated. I did question the patient as to any neurologic symptoms because she states she hit her head and had a headache with one episode of nausea and vomiting. She states that other than headache she has no other symptoms. We discussed CT imaging of the brain but she adamantly denies this and states she does not need it. She does have superficial abrasions on the hands which do not need to be sutured. There is no bony tenderness or deformity. Patient's tetanus immunization is up-to-date. Discussed with family who is at bedside and gave instructions to bring her back should she have any new or worsening symptoms. They acknowledge understanding. Patient discharged stable condition. Impression: 1. Closed head injury 2. Mechanical fall 3. Scalp laceration 1.5 cm 4. Superficial abrasions bilateral hands 5. Superficial abrasions bilateral forearm Discharge Plan Triage Chief Complaint: Head Injury ED Provider: Campbell Mclaughlin Dx/Rx/DC Orders Instructions: ED Laceration, Old: Not Sutured, ED Fall Prevention Prescriptions: No Action citalopram [Celexa] 40 MG tablet 40 mg PO DAILY RF: 0 clonazepam 1 MG tablet 1 mg PO TID RF: 0 aspirin 81 MG tablet,chewable 81 mg PO DAILY@0800 RF: 0 gabapentin 600 MG tablet 800 mg PO TIDCM RF: 0 cyclobenzaprine 10 MG tablet 10 mg PO TID RF: 0 amitriptyline 25 MG tablet 25 mg PO QHS PRN (Reason: Sleep) RF: 0 omeprazole 40 MG capsule,delayed release(DR/EC) 40 mg PO DAILY PRN (Reason: GERD) RF: 0 naproxen 500 MG tablet 500 mg PO BID PRN (Reason: Pain) RF: 0 denosumab 60 mg/mL syringe 60 mg SQ RF: 0 prednisone 10 MG tablet See Taper mg PO DAILY Qty: 30 RF: 0 amoxicillin-pot clavulanate 875 MG tablet 875 mg PO Q12H Qty: 12 RF: 0 albuterol sulfate 1 INHALER inhaler 1 - 2 puff inhalation Q4H PRN PRN (Reason: Shortness Of Breath) Qty: 1 RF: 0 nicotine 21 MG patch 21 mg TRANSDERM. DAILY Qty: 14 RF: 0 Primary Care Provider: Xavier Brownlee Referrals: Xavier Brownlee MD [Primary Care Provider] - Disposition Disposition: Home, Self Care
== END 2022-02-25 15:04 | disposition home or self-care (01) ==
LOC: ED 14:54
PROVIDERS: Emergency Provider Student in an Organized Health Care Education/Training Program; PCP Family Medicine; Visit Provider Student in an Organized Health Care Education/Training Program
DX: S01.01XA Laceration without foreign body of scalp, initial encounter (principal); S60.511A Abrasion of right hand, initial encounter; S60.512A Abrasion of left hand, initial encounter; S50.812A Abrasion of left forearm, initial encounter; S50.811A Abrasion of right forearm, initial encounter; F17.210 Nicotine dependence, cigarettes, uncomplicated; W19.XXXA Unspecified fall, initial encounter
CPT/HCPCS: 99283

== ENCOUNTER 2022-10-12 14:11 | Emergency (ER) | payer MEDICARE, MEDICAID, SELFPAY ==
[2022-10-12 14:12] VITALS: BP 152/95; PULSE 84; RESP 18; TEMP 35.8; O2SAT 92; BMI 26.4
--- NOTE | 2022-10-12 14:34 | RAD_ITS ---
INDICATION: Injury/Pain EXAMINATION/TECHNIQUE: X-RAY - LEFT XR Shoulder Min 2 Views 2 VIEWS COMPARISON: None. FINDINGS: SOFT TISSUES: No soft tissue swelling or gas. No radiopaque foreign body. BONES/JOINTS: There is nondisplaced fracture of the proximal metaphysis of the left humerus. Normal alignment. Preservation of the joint space.. No sclerotic or destructive changes observed. RAD/Shoulder min 2 Views IMPRESSION: There is nondisplaced fracture of the proximal metaphysis of the left humerus. Electronically Signed: Estela Pate MD at 15:43 EST ,
[2022-10-12] MEDS: Morphine 4 MG/ML Syringe IV (15:05)
--- NOTE | 2022-10-12 15:05 | RAD_ITS ---
INDICATION: Injury/Pain EXAMINATION/TECHNIQUE: X-RAY - LEFT XR Foot Min 3 Views 3 VIEWS COMPARISON: None. FINDINGS: SOFT TISSUES: No soft tissue swelling or gas. No radiopaque foreign body. 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 No acute fracture or subluxation.. Normal alignment. Preservation of the joint space.. No sclerotic or destructive changes observed. 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 Electronically Signed: Estela Pate MD at 15:36 EST ,
--- NOTE | 2022-10-12 15:32 | EDS_ITS ---
HPI HPI - Fall History of Present Illness Chief Complaint: Fall Occured/Mechanism Occurred: Today Fall from Height (ft): Fall off of bed Pain/Injury Pain Location: upper extremity (Left shoulder) and lower extremity (Left foot) Quality of Pain: Sharp Worsened by: Movement Relieved by: Nothing Associated Symptoms Associated Symptoms: Negative for Parasthesias, Weakness, Loss of consciousness or Amnesia Narrative Narrative: Patient presents after a fall that occurred today. Patient states she was standing on her bed trying to clean the ceiling fan. Patient states she fell off of her bed and landed on her left shoulder. Patient denies any head injury or loss of consciousness. Patient denies any paresthesias or weakness. Patient also admits to some pain in her left foot. Patient states her pain is worse wit h any movement. Patient states nothing seems to help with the pain. Patient denies any paresthesias or weakness. [facility] Medical History Anxiety COPD (chronic obstructive pulmonary disease) PTSD (post-traumatic stress disorder) Home Medications aspirin 81 mg chewable tablet 81 mg PO DAILY@0800 heart health 03/28/14 [History Last Taken Unknown] citalopram 40 mg tablet (Celexa) 40 mg PO DAILY mental health 03/28/14 [History Last Taken Unknown] clonazepam 1 mg tablet 1 mg PO TID anxiety 03/28/14 [History Last Taken Unknown] gabapentin 600 mg tablet 800 mg PO TIDCM nerve pain 09/07/16 [History Last Taken Unknown] amitriptyline 25 mg tablet 25 mg PO QHS PRN Sleep 03/03/20 [History Last Taken Unknown] cyclobenzaprine 10 mg tablet 10 mg PO TID muscle spasms 03/03/20 [History Last Taken Unknown] denosumab 60 mg/mL subcutaneous syringe 60 mg SQ bone health 03/04/20 [History Last Taken Unknown] naproxen 500 mg tablet 500 mg PO BID PRN Pain 03/04/20 [History Last Taken Unknown] omeprazole 40 mg capsule,delayed release 40 mg PO DAILY PRN GERD 03/04/20 [History Last Taken Unknown] albuterol sulfate 90 mcg/actuation aerosol inhaler 1 - 2 puff inhalation Q4H PRN PRN Shortness Of Breath ##1 03/06/20 [Rx Last Taken Unknown] amoxicillin 875 mg-potassium clavulanate 125 mg tablet 875 mg PO Q12H #12 tabs 03/06/20 [Rx Last Taken Unknown] nicotine 21 mg/24 hr daily transdermal patch 21 mg TRANSDERM. DAILY #14 patches 03/06/20 [Rx Last Taken Unknown] prednisone 10 mg tablet See Taper PO DAILY #30 tabs 03/06/20 [Rx Last Taken Unknown] hydrocodone-acetaminophen 5-325mg 5mg-325mg 1 tab PO Q6H PRN PRN Pain 3 days #10 TABLETS 10/12/22 [Rx Last Taken Unknown] Allergy/AdvReac Type Severity Reaction Status Date / Time tramadol Allergy Anaphylaxis Verified 10/12/22 14:16 acetaminophen [From Percocet] AdvReac Nausea/Vom/ Verified 10/12/22 14:16 Diarrhea oxycodone [From Percocet] AdvReac Nausea/Vom/ Verified 10/12/22 14:16 Diarrhea Surgical History no surgical history no surgical history Social History Smoking Status: Current every day smoker tobacco type: cigarettes ROS ROS ED Constitutional Constitutional ED: Denies chills or fever(s) Eyes Eyes: Denies blurry vision or change in vision ENT ENT ED: Denies rhinorrhea or sore throat Cardiovascular Cardiovascular: Denies chest pain or palpitations Respiratory/Chest Respiratory/Chest: Denies cough or dyspnea Gastrointestinal Gastrointestinal: Denies nausea or vomiting Genitourinary Genitourinary ED: Denies dysuria or hematuria Musculoskeletal Musculoskeletal: Denies back pain or neck pain Integumentary Denies abscess or rash Neurologic Neurologic: Denies headache(s) or weakness Allergic/Immunologic Allergic/Immunologic ED: Denies mouth swelling or urticaria EXAM Physical Exam Const Vital Signs: 10/12/22 14:12 10/12/22 15:08 Temperature 96.4 F L Temperature Source Temporal Pulse Rate 84 Respiratory Rate 18 Respiratory Effort Normal Non-Labored Respiratory Depth Normal Respiratory Pattern Normal Blood Pressure 152/95 H Blood Pressure Mean 114 Pulse Ox 92 Oxygen Delivery Method Room Air Positive well nourished and well developed General Appearance ED: well developed and NAD HEENT Reports normocephalic atraumatic Neck full ROM and supple Extremity Extremity Narrative: There is tenderness over the left shoulder. There is mild edema. There is no obvious deformity noted. There is no tenderness over the clavicle. Radial pulses are equal bilaterally. Sensation was intact to light touch in the radial, median, ulnar, and axillary areas. Strength is 5/5 in the radial, median, and ulnar areas. There is also mild tenderness over the plantar aspect of the left foot. There is no edema or ecchymosis. There is no deformity. There is no bony crepitance or step-off. There is good range of motion of the left foot and ankle. Pedal pulses are equal bilaterally. Sensation is intact to light touch bilateral lower extremities. Neuro oriented x3, CN's II-XII intact bilaterally, moves all extremities, no focal motor deficits and no sensory deficits noted [place] Coma Scale: document GCS findings Spontaneous Obeys Commands Oriented 15 Sensorium / Orientation: alert Motor Exam: strength 5/5 throughout Psych mental status grossly normal MDM MDM MDM Narrative Medical decision making narrative: Patient was given a dose of morphine here. Differential diagnosis includes fracture, dislocation, soft tissue injury, and sprain. X-rays of the left shoulder will be obtained to assess for fracture and dislocation. X-rays of the left foot will be obtained to assess for fracture. Radiography Diagnostic Testing: X-rays of the left shoulder were obtained. There are 2 views. On my independent interpretation, there is a nondisplaced fracture of the proximal humerus. There is no dislocation noted. Radiologist also interpreted the x-ray and agrees. X-rays of the left foot were obtained. There are 3 views. On my independent interpretation, there is no acute fracture. There are some degenerative changes noted. Radiologist also interpreted the x-rays and agrees. Treatment and Re-Evaluation Narrative: Patient was placed in a sling and swath. Patient was instructed to ice and elevate the left shoulder. Patient was given a prescription for a short course of [place]. Patient was instructed to follow-up with her primary care physician in 5 to 7 days. Patient understood and was agreeable with the plan. All questions were answered. Discharge Plan Triage Chief Complaint: Fall ED Provider: Guillermo Olvera Dx/Rx/DC Orders Clinical Impression: Closed fracture of left proximal humerus, Sprain of left foot Instructions: ED Foot Sprain, ED Fracture, Shoulder Prescriptions: New hydrocodone-acetaminophen [hydrocodone-acetaminophen] 5-325 mg tablet 1 tab PO Q6H PRN PRN (Reason: Pain) 3 Days Qty: 10 0RF No Action citalopram [Celexa] 40 MG tablet 40 mg PO DAILY clonazepam 1 MG tablet 1 mg PO TID aspirin 81 MG tablet,chewable 81 mg PO DAILY@0800 gabapentin 600 MG tablet 800 mg PO TIDCM cyclobenzaprine 10 MG tablet 10 mg PO TID amitriptyline 25 MG tablet 25 mg PO QHS PRN (Reason: Sleep) omeprazole 40 MG capsule,delayed release(DR/EC) 40 mg PO DAILY PRN (Reason: GERD) naproxen 500 MG tablet 500 mg PO BID PRN (Reason: Pain) denosumab 60 mg/mL syringe 60 mg SQ Label Comments: Inject 1 mL subcutaneously one time only for 1 dose. Rx Instructions: Q 6 months. Next injection scheduld for 03/14/20 prednisone 10 MG tablet See Taper PO DAILY Qty: 30 0RF Taper: Prednisone Taper 40 mg DAILY@0800 for 3 Days and 0 Hour 30 mg DAILY@0800 for 3 Days and 0 Hour 20 mg DAILY@0800 for 3 Days and 0 Hour 10 mg DAILY@0800 for 3 Days and 0 Hour amoxicillin-pot clavulanate 875 MG tablet 875 mg PO Q12H Qty: 12 0RF albuterol sulfate 1 INHALER inhaler 1 - 2 puff inhalation Q4H PRN PRN (Reason: Shortness Of Breath) Qty: 1 0RF nicotine 21 MG patch 21 mg TRANSDERM. DAILY Qty: 14 0RF Primary Care Provider: Xavier Brownlee Referrals: Xavier Brownlee MD [Primary Care Provider] - 3-5 Days Disposition Disposition: Home, Self Care
== END 2022-10-12 16:37 | disposition home or self-care (01) ==
PROVIDERS: Emergency Provider Emergency Medicine; PCP Family Medicine; Visit Provider Emergency Medicine
DX: S42.202A Unspecified fracture of upper end of left humerus, initial encounter for closed fracture (principal); S93.602A Unspecified sprain of left foot, initial encounter; F17.210 Nicotine dependence, cigarettes, uncomplicated; W06.XXXA Fall from bed, initial encounter
CPT/HCPCS: 73030; 73630; 96374; 99284; A4216

== ENCOUNTER 2022-10-14 16:41 | Emergency (ER) | payer MEDICARE, MEDICAID, SELFPAY ==
[2022-10-14 16:42] VITALS: BP 148/60; PULSE 90; TEMP 36.6; O2SAT 92; BMI 26.2
--- NOTE | 2022-10-14 17:33 | ED.RN ---
son frustrated because mom is still in waiting room.
--- NOTE | 2022-10-14 19:09 | EX.ED.UPPERE ---
HPI History of Present Illness Chief Complaint: Upper Extremity Injury Narrative Narrative: 67-year-old female presenting with known left shoulder pain from a closed fracture of the left humerus. She was just seen in the emergency room couple days ago. She was given appropriate follow-up with orthopedics. She said that she has not had any more falls and has been home. She has a Rollator which she can use to help transfer herself. She has family at home that can help her as well. She does not feel her pain is well controlled. She was given hydrocodone because it and states is not helping her pain. [facility] Medical History Anxiety COPD (chronic obstructive pulmonary disease) PTSD (post-traumatic stress disorder) Home Medications aspirin 81 mg chewable tablet 81 mg PO DAILY@0800 heart health 03/28/14 [History Last Taken Unknown] citalopram 40 mg tablet (Celexa) 40 mg PO DAILY mental health 03/28/14 [History Last Taken Unknown] clonazepam 1 mg tablet 1 mg PO TID anxiety 03/28/14 [History Last Taken Unknown] gabapentin 600 mg tablet 800 mg PO TIDCM nerve pain 09/07/16 [History Last Taken Unknown] amitriptyline 25 mg tablet 25 mg PO QHS PRN Sleep 03/03/20 [History Last Taken Unknown] cyclobenzaprine 10 mg tablet 10 mg PO TID muscle spasms 03/03/20 [History Last Taken Unknown] denosumab 60 mg/mL subcutaneous syringe 60 mg SQ bone health 03/04/20 [History Last Taken Unknown] naproxen 500 mg tablet 500 mg PO BID PRN Pain 03/04/20 [History Last Taken Unknown] omeprazole 40 mg capsule,delayed release 40 mg PO DAILY PRN GERD 03/04/20 [History Last Taken Unknown] albuterol sulfate 90 mcg/actuation aerosol inhaler 1 - 2 puff inhalation Q4H PRN PRN Shortness Of Breath ##1 03/06/20 [Rx Last Taken Unknown] amoxicillin 875 mg-potassium clavulanate 125 mg tablet 875 mg PO Q12H #12 tabs 03/06/20 [Rx Last Taken Unknown] nicotine 21 mg/24 hr daily transdermal patch 21 mg TRANSDERM. DAILY #14 patches 03/06/20 [Rx Last Taken Unknown] prednisone 10 mg tablet See Taper PO DAILY #30 tabs 03/06/20 [Rx Last Taken Unknown] hydrocodone-acetaminophen 5-325mg 5mg-325mg 1 tab PO Q6H PRN PRN Pain 3 days #10 TABLETS 10/12/22 [Rx Last Taken Unknown] Allergy/AdvReac Type Severity Reaction Status Date / Time tramadol Allergy Anaphylaxis Verified 10/14/22 16:42 acetaminophen [From Percocet] AdvReac Nausea/Vom/ Verified 10/14/22 16:42 Diarrhea oxycodone [From Percocet] AdvReac Nausea/Vom/ Verified 10/14/22 16:42 Diarrhea Social History Smoking Status: Current every day smoker tobacco type: cigarettes ROS ROS ED Review of Systems ROS Unobtainable: Denies due to encephalopathy Constitutional Constitutional ED: Denies chills or fever(s) Eyes Eyes: Denies change in vision or diplopia ENT ENT ED: Denies rhinorrhea or sore throat Cardiovascular Cardiovascular: Denies chest pain or palpitations Respiratory/Chest Respiratory/Chest: Denies cough or dyspnea Gastrointestinal Gastrointestinal: Denies abdominal pain, nausea or vomiting Genitourinary Genitourinary ED: Denies dysuria Musculoskeletal Musculoskeletal: Reports other Details: Left shoulder pain Integumentary Reports other Details: Bruising and left shoulder ; Denies abscess or Abrasions Neurologic Neurologic: Denies headache(s) Endocrine Endocrinology: Denies cold intolerance Hematologic/Lymphatic Hematologic/Lymphatic: Denies easy bleeding EXAM Physical Exam Const Vital Signs: 10/14/22 16:42 10/14/22 18:48 Temperature 98 F Temperature Source Temporal Pulse Rate 90 Respiratory Effort Normal Non-Labored Blood Pressure 148/60 H Blood Pressure Mean 89 Pulse Ox 92 Oxygen Delivery Method Room Air Positive well nourished General Appearance ED: NAD HEENT Reports moist mucous membranes normocephalic and atraumatic Eyes PERRL and EOMs intact bilaterally Chest Wall inspection of chest normal Chest Narrative: Bruising noted to the axillary region. Resp normal respiratory effort and clear to auscultation bilaterally GI Palpation: Negative for soft, tender or guarding Back/Spine no CVA tenderness Psych mental status grossly normal MDM MDM MDM Narrative Medical decision making narrative: Patient presenting with known shoulder fracture. She was just given a prescription for [place] 2 days ago. She has appropriate follow-up with orthopedics on Thursday. She does not want to be admitted and does not want to go to a nursing facility. Review of her [facility] report shows that she has a open prescription for [place] 5 325 mg. She reports that she took them all. She was given 1 [place] here in the emergency room. I discussed the case with Simba Steward who is on-call Dr. Brownlee. She states that she will try to have a follow-up with her in the office to get pain medicine refilled as needed. She has orthopedic follow-up on Thursday. Patient discharged home in stable condition. Impression: 1. History of left proximal humerus fracture Lab Data Attestation: I reviewed the patient's lab results. Discharge Plan Triage Chief Complaint: Upper Extremity Injury ED Provider: Campbell Mclaughlin Dx/Rx/DC Orders Instructions: ED Fracture, Upper Extremity Prescriptions: No Action citalopram [Celexa] 40 MG tablet 40 mg PO DAILY clonazepam 1 MG tablet 1 mg PO TID aspirin 81 MG tablet,chewable 81 mg PO DAILY@0800 gabapentin 600 MG tablet 800 mg PO TIDCM cyclobenzaprine 10 MG tablet 10 mg PO TID amitriptyline 25 MG tablet 25 mg PO QHS PRN (Reason: Sleep) omeprazole 40 MG capsule,delayed release(DR/EC) 40 mg PO DAILY PRN (Reason: GERD) naproxen 500 MG tablet 500 mg PO BID PRN (Reason: Pain) denosumab 60 mg/mL syringe 60 mg SQ Label Comments: Inject 1 mL subcutaneously one time only for 1 dose. Rx Instructions: Q 6 months. Next injection scheduld for 03/14/20 prednisone 10 MG tablet See Taper PO DAILY Qty: 30 0RF Taper: Prednisone Taper 40 mg DAILY@0800 for 3 Days and 0 Hour 30 mg DAILY@0800 for 3 Days and 0 Hour 20 mg DAILY@0800 for 3 Days and 0 Hour 10 mg DAILY@0800 for 3 Days and 0 Hour amoxicillin-pot clavulanate 875 MG tablet 875 mg PO Q12H Qty: 12 0RF albuterol sulfate 1 INHALER inhaler 1 - 2 puff inhalation Q4H PRN PRN (Reason: Shortness Of Breath) Qty: 1 0RF nicotine 21 MG patch 21 mg TRANSDERM. DAILY Qty: 14 0RF hydrocodone-acetaminophen [hydrocodone-acetaminophen] 5-325 mg tablet 1 tab PO Q6H PRN PRN (Reason: Pain) 3 Days Qty: 10 0RF Primary Care Provider: Xavier Brownlee Referrals: Xavier Brownlee MD [Primary Care Provider] - Disposition Disposition: Home, Self Care Discharge Date/Time: 10/14/22 20:43
[2022-10-14] MEDS: HYDROcodone Bitartrate/Apap 5/325 Tablet PO (20:29)
== END 2022-10-14 20:43 | disposition home or self-care (01) ==
PROVIDERS: Emergency Provider Student in an Organized Health Care Education/Training Program; PCP Family Medicine; Visit Provider Student in an Organized Health Care Education/Training Program
DX: S42.202A Unspecified fracture of upper end of left humerus, initial encounter for closed fracture (principal); M25.512 Pain in left shoulder; F17.210 Nicotine dependence, cigarettes, uncomplicated; X58.XXXA Exposure to other specified factors, initial encounter
CPT/HCPCS: 99283

== ENCOUNTER 2022-10-28 13:09 | Emergency (ER) | payer MEDICARE, MEDICAID, SELFPAY ==
[2022-10-28 13:14] VITALS: BP 120/70; PULSE 100; RESP 24; TEMP 36.4; O2SAT 92; BMI 24.7
--- NOTE | 2022-10-28 13:57 | EDS_ITS ---
HPI HPI - GI History of Present Illness Chief Complaint: Nausea/Vomiting Informant: patient and spouse/S.O. Nausea/Vomiting/Emesis GI Symptom: Positive for Nausea and Vomiting Onset: Days Quality: Positive for Nonbilious Severity: Mild Diarrhea/Melena/Hematochezia GI Symptom: Positive for Diarrhea; Negative for Melena or Hematochezia Onset: Days Stool Quality: Positive for Loose Severity: Mild Associated Symptoms Associated Symptoms: Negative for Dysuria, Frequency, Hematuria or Urgency Narrative Narrative: 67-year-old female fell 2 weeks ago has a left proximal humerus fracture which she is being treated for by [facility]. States for the last 4 to 5 days has had nausea, vomiting and diarrhea. Associated chills. No fever. No dysuria. No abdominal pain. Also states she is out of her pain medication for her humerus fracture. Prior similar symptoms: Yes Recent Illness/Hospitalization: No PFSH PFS Medical History Anxiety COPD (chronic obstructive pulmonary disease) PTSD (post-traumatic stress disorder) Home Medications aspirin 81 mg chewable tablet 81 mg PO DAILY@0800 heart health 03/28/14 [History Last Taken Unknown] citalopram 40 mg tablet (Celexa) 40 mg PO DAILY mental health 03/28/14 [History Last Taken Unknown] clonazepam 1 mg tablet 1 mg PO TID anxiety 03/28/14 [History Last Taken Unknown] gabapentin 600 mg tablet 800 mg PO TIDCM nerve pain 09/07/16 [History Last Taken Unknown] amitriptyline 25 mg tablet 25 mg PO QHS PRN Sleep 03/03/20 [History Last Taken Unknown] cyclobenzaprine 10 mg tablet 10 mg PO TID muscle spasms 03/03/20 [History Last Taken Unknown] denosumab 60 mg/mL subcutaneous syringe 60 mg SQ bone health 03/04/20 [History Last Taken Unknown] naproxen 500 mg tablet 500 mg PO BID PRN Pain 03/04/20 [History Last Taken Unknown] omeprazole 40 mg capsule,delayed release 40 mg PO DAILY PRN GERD 03/04/20 [History Last Taken Unknown] albuterol sulfate 90 mcg/actuation aerosol inhaler 1 - 2 puff inhalation Q4H PRN PRN Shortness Of Breath ##1 03/06/20 [Rx Last Taken Unknown] amoxicillin 875 mg-potassium clavulanate 125 mg tablet 875 mg PO Q12H #12 tabs 03/06/20 [Rx Last Taken Unknown] nicotine 21 mg/24 hr daily transdermal patch 21 mg TRANSDERM. DAILY #14 patches 03/06/20 [Rx Last Taken Unknown] prednisone 10 mg tablet See Taper PO DAILY #30 tabs 03/06/20 [Rx Last Taken Unknown] hydrocodone-acetaminophen 5-325mg 5mg-325mg 1 tab PO Q6H PRN PRN Pain 3 days #10 TABLETS 10/12/22 [Rx Last Taken Unknown] hydrocodone 5 mg-acetaminophen 300 mg tablet 1 tab PO Q6H PRN pain 4 days #14 tabs 10/28/22 [Rx Last Taken Unknown] ondansetron 4 mg disintegrating tablet 4 mg PO Q6H PRN nausea and vomiting #10 tabs 10/28/22 [Rx Last Taken Unknown] Allergy/AdvReac Type Severity Reaction Status Date / Time tramadol Allergy Anaphylaxis Verified 10/28/22 13:18 acetaminophen [From Percocet] AdvReac Nausea/Vom/ Verified 10/28/22 13:18 Diarrhea oxycodone [From Percocet] AdvReac Nausea/Vom/ Verified 10/28/22 13:18 Diarrhea Social History Smoking Status: Current every day smoker tobacco type: cigarettes ROS ROS ED ROS Narrative Nausea, vomiting, diarrhea. Review of Systems ROS Unobtainable: Denies due to encephalopathy Constitutional Constitutional ED: Reports chills; Denies fever(s) ENT ENT ED: Denies ear pain Cardiovascular Cardiovascular: Denies chest pain Respiratory/Chest Respiratory/Chest: Denies cough or dyspnea Gastrointestinal Gastrointestinal: Reports diarrhea, nausea and vomiting; Denies abdominal pain, constipation or melena Genitourinary Genitourinary ED: Denies dysuria or hematuria Musculoskeletal Musculoskeletal: Denies arthralgias Integumentary Denies abscess Neurologic Neurologic: Denies headache(s) Psychiatric Psychiatric: Denies anxiety Endocrine Endocrinology: Denies polydipsia Hematologic/Lymphatic Hematologic/Lymphatic: Denies easy bleeding Allergic/Immunologic Allergic/Immunologic ED: Denies mouth swelling or tongue swelling EXAM Physical Exam Narrative Exam Narrative: 59-year-old female vital signs are stable afebrile. She does not look septic or toxic. She is in no acute distress. at bedside. H EENT exam unremarkable and mildly dry mucous membranes. Neck nontender no lymphadenopathy. Lungs clear to auscultation bilaterally. Heart regular rhythm rate about 100 no murmur. Chest wall nontender. Abdomen soft nontender. Normal bowel sounds no peritoneal signs. Both the right upper and right lower quadrants are unremarkable. Moving all 4 extremities. Left upper extremity is in a sling from a proximal humerus fracture. There is bruising along the arm and upper shoulder. Back nontender. Neurologically she is awake and alert with no focal motor deficits. Const Vital Signs: 10/28/22 13:14 Temperature 97.5 F L Temperature Source Oral Pulse Rate 100 Respiratory Rate 24 H Blood Pressure 120/70 Blood Pressure Mean 86 Pulse Ox 92 Oxygen Delivery Method Room Air Positive well nourished and well developed; Negative for obese, cachectic, contractures or unkempt General Appearance ED: well developed and NAD; Negative for unkempt, cachectic, contractures or pallor Nutritional Appearance: Negative for cachectic or obese HEENT Reports dry mucous membranes normocephalic and atraumatic; Negative for trauma or tenderness Mouth ED: Yes dry mucous membranes Mouth: dry mucous membranes Eyes PERRL and EOMs intact bilaterally General Eye ED: Negative for pale conjunctiva or scleral icterus Neck no lymphadenopathy, supple and no JVD General: Negative for tenderness Carotids: Negative for other Lymph Lymphatic: Negative for other Resp normal respiratory effort and clear to auscultation bilaterally Effort and Inspection: Negative for respiratory distress, retractions or pain with movement Auscultation: Negative for rales, rhonchi or wheezes Cardio regular rate, regular rhythm, S1 normal heart sound, S2 normal heart sound and no murmurs GI non-tender, non-distended and no masses Inspection: Negative for abdominal distention Auscultation: normoactive bowel sounds Palpation: soft; Negative for tender or guarding Back/Spine Negative for no CVA tenderness General Back: Negative for CVA tenderness Cervical Spine: Negative for cervical spine tenderness Thoracic Spine / Upper Back: Negative for thoracic spinal tenderness Lumbar Spine / Lower Back: Negative for lumbar spinal tenderness Coccyx: Negative for other Extremity full ROM Extremity Narrative: Except for the left upper arm that has a known fracture and is in a sling. General Extremety ED: Yes tenderness; Negative for edema General Extremity: Negative for edema Neuro CN's II-XII intact bilaterally and moves all extremities Sensorium / Orientation: alert, oriented to person, oriented to place and oriented to time; Negative for orientation impaired, confused, lethargic or stuporous Motor Exam: strength 5/5 throughout Psych mental status grossly normal and thought process normal Appearance: Negative for unkempt Attitude: No agitated Mood & Affect: Negative for depressed, anxious or tearful Skin no wounds General Skin Exam: Negative for jaundice or pallor Lesions: no lesions Rashes: no rashes Trauma: Negative for abrasion Nails: Negative for discolored MDM MDM MDM Narrative Medical decision making narrative: 67-year-old with nausea, vomiting and diarrhea possibly secondary to viral syndrome versus other etiologies. She also has a known left upper arm fracture. She will be given morphine for the pain of her arm. Zofran for nausea. A liter of fluid. Screening labs will be obtained. Her abdomen is completely nontender nondistended she does not need imaging of her abdomen at this time. Repeat exam at 3:32 PM patient doing well. Still has some nausea but given a second dose of Zofran. Her repeat abdominal exam is benign. The patient and her friend in the room went over her test results. She will be discharged home. Prescription for Zofran for nausea. Also a prescription for Vicodin but that is for her left arm fracture because she is almost out of those. Lab Data Attestation: I reviewed the patient's lab results. Lab results narrative: CBC unremarkable. White count of 9.1. H&H 13.2 and 41.3. Platelets 456. Electrolytes show a sodium 138. Potassium 3.1. Gap of 8. BUN of 14 creatinine 0.65. Liver enzymes normal. Glucose 99. Patient has a prior history of hyponatremia as seen on prior labs. I did review her prior labs and work-ups. Labs: Laboratory Results - last 24 hr 10/28/22 10/28/22 13:30 13:30 WBC 9.1 RBC 4.62 Hgb 13.2 Hct 41.3 MCV 89.4 MCH 28.6 MCHC 32.0 RDW Std Deviation 64.0 H RDW Coeff of Tanisha 19.8 H Plt Count 456 H MPV 10.2 Immature Gran % (Auto) 0.900 Neut % (Auto) 82.3 H Lymph % (Auto) 5.9 L [place] % (Auto) 10.5 H Eos % (Auto) 0.1 Baso % (Auto) 0.3 Absolute Neuts (auto) 7.5 Absolute Lymphs (auto) 0.54 L Nucleated RBC % 0 Platelet Estimate SLT INC Anisocytosis 1+ Ovalocytes 1+ Sodium 130 L Potassium 3.1 L Chloride 95 L Carbon Dioxide 27.0 Anion Gap 8 BUN 14 Creatinine 0.65 Estim Creat Clear Calc 40.63 Est GFR (MDRD) Af Amer 116 Est GFR (MDRD) Non-Af 96 BUN/Creatinine Ratio 21.4 H Glucose 99 Calcium 8.5 Total Bilirubin 0.40 AST 14 L ALT 15 Alkaline Phosphatase 80 Total Protein 6.4 Albumin 2.8 L Globulin 3.6 Albumin/Globulin Ratio 0.8 L Discharge Plan Triage Chief Complaint: Nausea/Vomiting ED Provider: Michael Alfredo Dx/Rx/DC Orders Clinical Impression: Viral gastroenteritis, Nausea vomiting and diarrhea, Chronic hyponatremia Instructions: ED Gastroenteritis, Viral (Adult) Prescriptions: New ondansetron 4 mg tablet,disintegrating 4 mg PO Q6H PRN (Reason: nausea and vomiting) Qty: 10 0RF hydrocodone-acetaminophen 5-300 mg tablet 1 tab PO Q6H PRN (Reason: pain) 4 Days Qty: 14 0RF No Action citalopram [Celexa] 40 MG tablet 40 mg PO DAILY clonazepam 1 MG tablet 1 mg PO TID aspirin 81 MG tablet,chewable 81 mg PO DAILY@0800 gabapentin 600 MG tablet 800 mg PO TIDCM cyclobenzaprine 10 MG tablet 10 mg PO TID amitriptyline 25 MG tablet 25 mg PO QHS PRN (Reason: Sleep) omeprazole 40 MG capsule,delayed release(DR/EC) 40 mg PO DAILY PRN (Reason: GERD) naproxen 500 MG tablet 500 mg PO BID PRN (Reason: Pain) denosumab 60 mg/mL syringe 60 mg SQ Label Comments: Inject 1 mL subcutaneously one time only for 1 dose. Rx Instructions: Q 6 months. Next injection scheduld for 03/14/20 prednisone 10 MG tablet See Taper PO DAILY Qty: 30 0RF Taper: Prednisone Taper 40 mg DAILY@0800 for 3 Days and 0 Hour 30 mg DAILY@0800 for 3 Days and 0 Hour 20 mg DAILY@0800 for 3 Days and 0 Hour 10 mg DAILY@0800 for 3 Days and 0 Hour amoxicillin-pot clavulanate 875 MG tablet 875 mg PO Q12H Qty: 12 0RF albuterol sulfate 1 INHALER inhaler 1 - 2 puff inhalation Q4H PRN PRN (Reason: Shortness Of Breath) Qty: 1 0RF nicotine 21 MG patch 21 mg TRANSDERM. DAILY Qty: 14 0RF hydrocodone-acetaminophen [hydrocodone-acetaminophen] 5-325 mg tablet 1 tab PO Q6H PRN PRN (Reason: Pain) 3 Days Qty: 10 0RF Primary Care Provider: Xavier Brownlee Referrals: Xavier Brownlee MD [Primary Care Provider] - 1-2 Days if not improving Activity Restrictions/Additional Instructions: Plenty of fluids and rest. [place] diet increase slowly as tolerated. Zofran as needed for nausea. Vicodin for your left arm fracture. Be careful because that can make you nauseated and/or constipated. Follow-up with your orthopedic doctors for your arm. Follow-up with your primary care physician if your nausea, vomiting diarrhea is not improving. Return if worse. Disposition Disposition: Home, Self Care
[2022-10-28] MEDS: Ondansetron 4 MG/2 ML Vial IV ×2 (14:06→15:57)
[2022-10-28] MEDS: 0.9% Normal Saline 1,000 ML 1000 ML IV (14:06)
[2022-10-28] MEDS: Morphine 4 MG/ML Syringe IV (14:06)
[2022-10-28 14:26] LABS: Absolute Lymphocyte Count 0.54 X10^3/uL (0.83-4.51); Absolute Neutrophil Count 7.5 X10^3/uL (2.0-7.7); Basophil# 0.03 X10^3/uL; Basophil% 0.3 % (0-1); Eosinophil# 0.01 X10^3/uL; Eosinophils% 0.1 % (0-5); Hematocrit 41.3 % (37-47); Hemoglobin 13.2 g/dL (12.0-15.0); Lymphocyte # 0.54 X10^3/ul (0.83-4.51); Lymphocyte % 5.9 % (19-41); Mean Corpuscular Hgb 28.6 pg (27.0-32.0); Mean Corpuscular Volume 89.4 fL (81-99); Mean Platelet Vol. 10.2 fl (6.2-12.0); Monocyte# 0.96 X10^3/uL; Monocyte% 10.5 % (0-10); NRBC Flagged by Analyzer 0 % (0-5); Neutrophil # 7.49 X10^3/uL (2.7-7.7); Neutrophil % 82.3 % (47-70); POSITIVE DIFFERENTIAL YES; Platelet Count 456 K/mm3 (150-450); RBC Distribution Width CV 19.8 % (11.6-14.6); Red Blood Count 4.62 M/mm3 (4.2-5.4); White Blood Count 9.1 K/mm3 (4.4-11.0)
[2022-10-28 14:27] LABS: Differential Indicated SCAN CRITERIA MET
[2022-10-28 14:42] LABS: ALB/GLOB Ratio 0.8 RATIO (0.9-2.4); AST(SGOT) 14 U/L (15-37); Alanine Aminotransfer ALT/SGPT 15 U/L (13-56); Albumin, Serum 2.8 g/dL (3.2-5.0); Alkaline Phosphatase 80 U/L (45-117); Anion Gap 8 (5-15); BUN 14 mg/dL (7-18); BUN/Creat Ratio 21.4 RATIO (10-20); Calcium,Total 8.5 mg/dL (8.5-10.1); Chloride 95 mmol/L (98-107); Creatinine, Serum 0.65 mg/dL (0.55-1.02); EST Glomerular Filtration Rate 96 mL/min (>60); Est Glom Filt Rate - Afr Amer 116 mL/min (>60); Estimated Creatinine Clearance 40.63 ml/min; Globulin 3.6 g/dL (2.2-4.2); Glucose 99 mg/dL (74-106); Potassium 3.1 mmol/L (3.5-5.1); Protein, Total 6.4 g/dL (6.4-8.2); Sodium Level 130 mmol/L (136-145)
[2022-10-28 14:58] LABS: Anisocytosis 1+; Ovalocyte 1+; Platelet Estimate SLT INC (ADEQ)
[2022-10-28 16:04] VITALS: BP 126/67; PULSE 74; RESP 16; O2SAT 99
--- NOTE | 2022-10-28 16:21 | CM.ED ---
Social Work Note TRACY contacted by Kael with [employer] explaining patient was coming into the ED to address medical concerns. Kael explained she was contacted by the patient's neighbor with concerns regarding patient caring for herself. Kael was calling to inquire about demographic information for patient and asked to be contacted when patient was discharged. TRACY attempted to contact Kael with [employer] as patient was discharged home. TRACY left a voicemail requesting a return phone call. [place], [place]
== END 2022-10-28 16:04 | disposition home or self-care (01) ==
PROVIDERS: Emergency Provider Emergency Medicine; PCP Family Medicine; Visit Provider Emergency Medicine
DX: A08.4 Viral intestinal infection, unspecified (principal); E87.1 Hypo-osmolality and hyponatremia; F17.210 Nicotine dependence, cigarettes, uncomplicated
CPT/HCPCS: 80053; 85025; 96361; 96374; 96375; 96376; 99285; J7030; A4216; J2405

== ENCOUNTER 2022-12-13 03:21 | Inpatient (IN) | payer MEDICARE, MEDICAID, SELFPAY ==
[2022-12-13] VITALS (12 sets, daily range): BP systolic 129–191; BP diastolic 63–95; PULSE 81–95; RESP 15–22; TEMP 36.6–36.9; O2SAT 85–96; BMI 26.3; BMI 24.7
--- NOTE | 2022-12-13 03:45 | EKG12_ITS ---
Test Reason : DYSRHYTHMIA Blood Pressure : / mmHG Vent. Rate : 094 BPM Atrial Rate : 094 BPM P-R Int : 186 ms QRS Dur : 084 ms QT Int : 410 ms P-R-T Axes : 059 058 079 degrees QTc Int : 512 ms Normal sinus rhythm Prolonged QT Abnormal ECG Confirmed by DEVON SMITH, VIN ([id number]), assistant film editor CODY CAMARGO ([id number]) on 12/15/2022 11:13:00 AM Referred By: ROSEMARY Confirmed By:TERESA OSORIO MD
[2022-12-13] MEDS: Nitroglycerin SL (ED/IMG/CATH) 0.4 MG TABLET SL (04:02)
[2022-12-13 04:11] LABS: Absolute Lymphocyte Count 1.07 X10^3/uL (0.83-4.51); Absolute Neutrophil Count 7.4 X10^3/uL (2.0-7.7); Basophil# 0.02 X10^3/uL; Basophil% 0.2 % (0-1); Eosinophil# 0.01 X10^3/uL; Eosinophils% 0.1 % (0-5); Hematocrit 36.4 % (37-47); Hemoglobin 11.5 g/dL (12.0-15.0); Lymphocyte # 1.07 X10^3/ul (0.83-4.51); Lymphocyte % 11.5 % (19-41); Mean Corp Hgb Conc 31.6 g/dL (32-36); Mean Corpuscular Hgb 29.6 pg (27.0-32.0); Mean Corpuscular Volume 93.6 fL (81-99); Mean Platelet Vol. 9.6 fl (6.2-12.0); Monocyte# 0.75 X10^3/uL; Monocyte% 8.1 % (0-10); NRBC Flagged by Analyzer 0 % (0-5); Neutrophil # 7.38 X10^3/uL (2.7-7.7); Neutrophil % 79.7 % (47-70); Platelet Count 386 K/mm3 (150-450); RBC Distribution Width CV 16.2 % (11.6-14.6); RBC Distribution Width SD 55.7 fl (35.1-43.9); Red Blood Count 3.89 M/mm3 (4.2-5.4); White Blood Count 9.3 K/mm3 (4.4-11.0)
[2022-12-13] MEDS: Captopril 12.5 MG Tablet PO (04:19)
--- NOTE | 2022-12-13 04:25 | RAD_ITS ---
EXAM: XR CHEST, 1 VIEW CLINICAL INDICATION: dyspnea TECHNIQUE: Frontal view of the chest. This report was created using MOVL report generation technology. COMPARISON: None. FINDINGS: LUNGS AND PLEURAL SPACES: Mild pulmonary edema and small right pleural effusion. No pneumothorax. HEART: Unremarkable. Cardiac silhouette not enlarged. MEDIASTINUM: Central airways and mediastinal contour are unremarkable. BONES/JOINTS: Unremarkable. SOFT TISSUES: Unremarkable. RAD/Chest 1 View (Portable) IMPRESSION: Mild pulmonary edema and small right pleural effusion. Electronically Signed: Justin Cazares MD at 4:49 EDT ,
[2022-12-13 04:30] LABS: BNP,B-Type NATRIURETIC PEPTIDE 610.1 pg/mL (0-100)
[2022-12-13 04:37] LABS: Anion Gap 7 (5-15); BUN 11 mg/dL (7-18); Calcium,Total 8.9 mg/dL (8.5-10.1); Chloride 99 mmol/L (98-107); Creatinine, Serum 0.48 mg/dL (0.55-1.02); EST Glomerular Filtration Rate 137 mL/min (>60); Est Glom Filt Rate - Afr Amer 166 mL/min (>60); Estimated Creatinine Clearance 38.68 ml/min; Glucose 129 mg/dL (74-106); Magnesium 1.7 mg/dL (1.6-2.6); Potassium 3.1 mmol/L (3.5-5.1); Sodium Level 138 mmol/L (136-145); Troponin-I HS 41 pg/mL (3.0-54.0)
[2022-12-13] MEDS: Potassium Chloride Oral Tablet 20 MEQ PO (05:20)
[2022-12-13] MEDS: Furosemide 40 MG/4 ML Vial IV ×3 (05:27→18:13)
--- NOTE | 2022-12-13 05:30 | ED.RN ---
patient given potassium level. patient swallowed pill and then started choking on medication. patient gasping for air and attempting to gag self in order to get pill unstuck. patient sitting on side of bed activitly choking on pill. at this time patient given the heimlich and breathing improved. Dr. Rebolledo called into the room and evaluated patient at this time
[2022-12-13 06:21] LABS: Troponin-I HS 42 pg/mL (3.0-54.0)
--- NOTE | 2022-12-13 06:28 | EDS_ITS ---
HPI History of Present Illness Chief Complaint: Shortness of Breath Narrative Narrative: Patient is a 67-year-old female from home with history of COPD and congestive heart failure. She states that she wears 2 to 3 L of nasal cannula oxygen when needed but not all the time. She states over the last 2 to 3 days she has been wearing the oxygen more as she has had increased shortness of breath. She states tonight the shortness of breath has increased and she cannot lie down without worsening shortness of breath sensation and she is also noticed some chest tightness and states she has been coughing up some sputum. She states she has concern for possible infection or cardiac event and therefore comes to the hospital for evaluation [facility] Medical History (Updated 12/13/22 @ 06:[address] Seth Rebolledo DO) Anxiety Congestive heart failure (CHF) COPD (chronic obstructive pulmonary disease) DDD (degenerative disc disease) PTSD (post-traumatic stress disorder) Home Medications clonazepam 1 mg tablet 1 mg PO TID PRN Anxiety 03/28/14 [History Last Taken Unknown] denosumab 60 mg/mL subcutaneous syringe 60 mg SQ bone health 03/04/20 [History Last Taken Unknown] naproxen 500 mg tablet 500 mg PO BID PRN Pain 03/04/20 [History Last Taken Unknown] omeprazole 40 mg capsule,delayed release 40 mg PO DAILY PRN GERD 03/04/20 [History Last Taken Unknown] albuterol sulfate 90 mcg/actuation aerosol inhaler 1 - 2 puff inhalation Q4H PRN PRN Shortness Of Breath ##1 03/06/20 [Rx Last Taken Unknown] fluticasone fur. 100 mcg-umeclid 62.5 mcg-vilant 25 mcg inhalat.powder (Trelegy Ellipta) 1 ea inhalation DAILY 12/13/22 [History Last Taken Unknown] Allergy/AdvReac Type Severity Reaction Status Date / Time tramadol Allergy Anaphylaxis Verified 12/13/22 03:29 acetaminophen [From Percocet] AdvReac Nausea/Vom/ Verified 12/13/22 03:29 Diarrhea oxycodone [From Percocet] AdvReac Nausea/Vom/ Verified 12/13/22 03:29 Diarrhea Family History (Updated 12/13/22 @ 07:[address] Juve Patino MD) Other Heart disease Surgical History (Updated 12/13/22 @ 07:[address] Juve Patino MD) Hx of tonsillectomy Social History Smoking Status: Former smoker ROS ROS ED Constitutional Constitutional ED: Denies chills or fever(s) ENT ENT ED: Denies sore throat Cardiovascular Cardiovascular: Reports chest pain and orthopnea Respiratory/Chest Respiratory/Chest: Reports cough, dyspnea and orthopnea Gastrointestinal Gastrointestinal: Denies abdominal pain, diarrhea, nausea or vomiting Genitourinary Genitourinary ED: Denies dysuria Musculoskeletal Musculoskeletal: Reports other Details: Positive leg swelling and leg pain ; Denies myalgias Integumentary Denies rash Neurologic Neurologic: Denies headache(s) Hematologic/Lymphatic Hematologic/Lymphatic: Denies easy bleeding or easy bruising EXAM Physical Exam Const Vital Signs: 12/13/22 03:29 12/13/22 03:32 12/13/22 03:33 Temperature 97.8 F 97.8 F Temperature Source Temporal Temporal Pulse Rate 94 90 Respiratory Rate 18 22 H Respiratory Effort Short of Breath Respiratory Depth Shallow Respiratory Pattern Tachypnea Blood Pressure 191/95 H 191/95 H Blood Pressure Mean 127 127 Pulse Ox 85 96 Oxygen Delivery Method Nasal Cannula Nasal Cannula Nasal Cannula Oxygen Flow Rate (L/min) 3 5 5 12/13/22 03:51 12/13/22 04:02 12/13/22 06:01 Temperature Temperature Source Pulse Rate 86 95 Respiratory Rate 20 H Respiratory Effort Respiratory Depth Respiratory Pattern Blood Pressure 162/80 H 163/83 H Blood Pressure Mean 109 Pulse Ox 96 95 Oxygen Delivery Method Nasal Cannula Nasal Cannula Oxygen Flow Rate (L/min) 4 5 Positive well nourished and well developed Constitutional Narrative: Patient has mild respiratory distress with tachypnea and accessory muscle use General Appearance ED: well developed HEENT Reports moist mucous membranes HEENT Narrative: No tongue or lip swelling no oral lesions no airway edema or compromise Eyes PERRL and EOMs intact bilaterally Neck supple Neck Narrative: Trace JVD noted on right Chest Wall palpation of chest normal Chest Narrative: No bony deformity or crepitance Resp Resp Narrative: Patient is in mild to moderate respiratory distress with tachypnea and accessory muscle use. Breath sounds are severely diminished throughout with expiratory wheezes in the bilateral upper lobes and rhonchi and crackles in the bilateral lower lobes Patient does have orthopnea at approximately 45 degrees Cardio regular rate and regular rhythm Rate: other Other Details: Radial pulses are plus 2 out of 4 bilaterally are equal and symmetric GI normal to inspection, nondistended, normoactive bowel sounds, non-tender, non- distended and no masses GI Narrative: No voluntary guarding or rigidity no pulsatile mass or fluid wave Auscultation: normoactive bowel sounds Palpation: soft Extremity Extremity Narrative: Patient has +3 pitting edema to the bilateral lower legs that extends from the dorsum of the foot to just below the knee Negative Homans' sign bilaterally Neuro oriented x3 and CN's II-XII intact bilaterally Sensorium / Orientation: alert Psych Psych Narrative: Patient has a nervous/anxious affect Skin no rashes or lesions noted MDM MDM MDM Narrative Medical decision making narrative: Patient arrived to the ER on her nasal cannula at 3 L which she states is what she wears when needed. At this value she was only satting 85%. Patient was increased to 5 L and increased her SPO2 to 95%. With her increased leg swelling and JVD and orthopnea exam and history is most consistent with congestive heart failure exacerbation. Secondary to this basic blood work was obtained. There is also concern that she could have developed pneumonia have a pleural effusion a pneumothorax or feel short of breath from acute blood loss anemia. Labs showed elevation to the proBNP at 610 consistent with her history of heart failure. Chest x-ray showed pulmonary vascular congestion and a right-sided pleural effusion consistent with her physical exam as well. Patient was given 1 sublingual nitro to reduce preload captopril to reduce afterload and then IV Lasix for volume reduction. With this she had improvement of her symptoms but was still requiring 4 to 5 L to keep her SPO2 greater than 90%. Secondary to this I feel she would benefit from a few days in the hospital with IV Lasix and continued treatment. The case was discussed with the hospitalist who agrees to accept the patient at this time. Plan of care was discussed with the patient and she is agreeable to it History & Record Review Discussion w/independent historian: EMS personnel and Patient Lab Data Attestation: I reviewed the patient's lab results. Labs: Laboratory Results - last 24 hr 12/13/22 12/13/22 12/13/22 03:42 03:42 03:42 WBC 9.3 RBC 3.89 L Hgb 11.5 L Hct 36.4 L MCV 93.6 MCH 29.6 MCHC 31.6 L RDW Std Deviation 55.7 H RDW Coeff of Tanisha 16.2 H Plt Count 386 MPV 9.6 Immature Gran % (Auto) 0.400 Neut % (Auto) 79.7 H Lymph % (Auto) 11.5 L [place] % (Auto) 8.1 Eos % (Auto) 0.1 Baso % (Auto) 0.2 Absolute Neuts (auto) 7.4 Absolute Lymphs (auto) 1.07 Nucleated RBC % 0 Sodium 138 Potassium 3.1 L Chloride 99 Carbon Dioxide 32.0 Anion Gap 7 BUN 11 Creatinine 0.48 L Estim Creat Clear Calc 38.68 Est GFR (MDRD) Af Amer 166 Est GFR (MDRD) Non-Af 137 BUN/Creatinine Ratio 23.0 H Glucose 129 H Calcium 8.9 Magnesium 1.7 Troponin I High Sens 41 B-Natriuretic Peptide 610.1 H 12/13/22 05:55 WBC RBC Hgb Hct MCV MCH MCHC RDW Std Deviation RDW Coeff of Tanisha Plt Count MPV Immature Gran % (Auto) Neut % (Auto) Lymph % (Auto) [place] % (Auto) Eos % (Auto) Baso % (Auto) Absolute Neuts (auto) Absolute Lymphs (auto) Nucleated RBC % Sodium Potassium Chloride Carbon Dioxide Anion Gap BUN Creatinine Estim Creat Clear Calc Est GFR (MDRD) Af Amer Est GFR (MDRD) Non-Af BUN/Creatinine Ratio Glucose Calcium Magnesium Troponin I High Sens 42 B-Natriuretic Peptide Radiography Diagnostic Testing: Clinical Impression(s) from Imaging Studies Chest X-Ray 12/13/22 04:25 IMPRESSION: Mild pulmonary edema and small right pleural effusion. Electronically Signed: Justin Cazares MD at 4:49 EDT , Chest x-ray as interpreted by the emergency medicine physician reveals pulmonary edema with a small right pleural effusion. No acute infiltrate or pneumothorax noted Management Discussion w/another healthcare provider: Hospitalist Discharge Plan Dx/Rx/DC Orders Clinical Impression: Acute exacerbation of CHF (congestive heart failure), Pleural effusion, Acute hypokalemia, COPD (chronic obstructive pulmonary disease) Disposition Disposition: Acute Care Hospital [facility]
--- NOTE | 2022-12-13 06:36 | PCM.HP.STD ---
HPI - General General Date of Admission: 12/13/22 Date of Service: 12/13/22 Chief Complaint: Shortness of breath HPI Narrative EVAN LAW, is a 67 F with a significant history of congestive heart failure (unknown ejection fraction); COPD; and nightly oxygen dependent who presents to the emergency department with 2- 3 day history of progressively worsening shortness of breath. Her shortness of breath is at rest and increases markedly with exertion. Associated with her symptoms is paroxysmal nocturnal dyspnea, orthopnea and fatigue. Also she reports swelling in her bilateral legs. At the emergency department patient felt better with increasing supplemental oxygen to 5 L. At the ED she was given captopril and sublingual nitroglycerin and it gave her a considerable improvement. [facility] Medical History Anxiety Congestive heart failure (CHF) COPD (chronic obstructive pulmonary disease) DDD (degenerative disc disease) PTSD (post-traumatic stress disorder) Home Medications clonazepam 1 mg tablet 1 mg PO TID PRN Anxiety 03/28/14 [History Last Taken Unknown] denosumab 60 mg/mL subcutaneous syringe 60 mg SQ bone health 03/04/20 [History Last Taken Unknown] naproxen 500 mg tablet 500 mg PO BID PRN Pain 03/04/20 [History Last Taken Unknown] omeprazole 40 mg capsule,delayed release 40 mg PO DAILY PRN GERD 03/04/20 [History Last Taken Unknown] albuterol sulfate 90 mcg/actuation aerosol inhaler 1 - 2 puff inhalation Q4H PRN PRN Shortness Of Breath ##1 03/06/20 [Rx Last Taken Unknown] fluticasone fur. 100 mcg-umeclid 62.5 mcg-vilant 25 mcg inhalat.powder (Trelegy Ellipta) 1 ea inhalation DAILY 12/13/22 [History Last Taken Unknown] Allergy/AdvReac Type Severity Reaction Status Date / Time tramadol Allergy Anaphylaxis Verified 12/13/22 03:29 acetaminophen [From Percocet] AdvReac Nausea/Vom/ Verified 12/13/22 03:29 Diarrhea oxycodone [From Percocet] AdvReac Nausea/Vom/ Verified 12/13/22 03:29 Diarrhea Family History Other Heart disease Surgical History Hx of tonsillectomy Social History Smoking Status: Former smoker ROS ROS Narrative Pertinent positives and pertinent negatives as noted in HPI. All other systems were reviewed and are negative Vital Signs Vital Signs Vital Signs: 12/13/22 03:29 12/13/22 03:32 12/13/22 03:33 Temperature 97.8 F 97.8 F Temperature Source Temporal Temporal Pulse Rate 94 90 Respiratory Rate 18 22 H Respiratory Effort Short of Breath Respiratory Depth Shallow Respiratory Pattern Tachypnea Blood Pressure 191/95 H 191/95 H Blood Pressure Mean 127 127 Pulse Ox 85 96 Oxygen Delivery Method Nasal Cannula Nasal Cannula Nasal Cannula Oxygen Flow Rate (L/min) 3 5 5 12/13/22 03:51 12/13/22 04:02 12/13/22 06:01 Temperature Temperature Source Pulse Rate 86 95 Respiratory Rate 20 H Respiratory Effort Respiratory Depth Respiratory Pattern Blood Pressure 162/80 H 163/83 H Blood Pressure Mean 109 Pulse Ox 96 95 Oxygen Delivery Method Nasal Cannula Nasal Cannula Oxygen Flow Rate (L/min) 4 5 Weight Weight: 61.1 kg Body Mass Index (BMI) 26.3 Physical Exam Narrative Physical exam: General: Well-nourished, well-developed. Head: Normocephalic, atraumatic, no tenderness Eyes: Vision is grossly intact. EOMI ENT, no trauma, moist mucous membranes, no rhinorrhea Neck: Nontender, No thyromegaly. CVS: Regular rate and rhythm. S1-S2 present. No murmur, gallop or rub. Respiratory : Tachypnea; diminished; bilaterally, chest wall nontender Abdomen: Soft, nontender, nondistended, normal bowel sounds, no masses : Deferred Back: Nontender, no CVA tenderness, no midline spinal tenderness, deformities, step-offs Extremities: Bilateral lower extremity pitting edema + 3; no trauma Skin: Normal color, no trauma, abrasions Neuro: Alert, oriented, cranial nerves II through XII grossly intact. Psychiatry: Normal mood. Normal affect. Not depressed. Not anxious. Results Lab / Micro Data Result Diagrams: 12/13/22 03:42 12/13/22 03:42 Labs: Laboratory Results - last 24 hr 12/13/22 03:42: WBC 9.3, RBC 3.89 L, Hgb 11.5 L, Hct 36.4 L, MCV 93.6, MCH 29.6, MCHC 31.6 L, RDW Std Deviation 55.7 H, RDW Coeff of Tanisha 16.2 H, Plt Count 386, MPV 9.6, Immature Gran % (Auto) 0.400, Neut % (Auto) 79.7 H, Lymph % (Auto) 11.5 L, [place] % (Auto) 8.1, Eos % (Auto) 0.1, Baso % (Auto) 0.2, Absolute Neuts (auto) 7.4, Absolute Lymphs (auto) 1.07, Nucleated RBC % 0 12/13/22 03:42: Sodium 138, Potassium 3.1 L, Chloride 99, Carbon Dioxide 32.0, Anion Gap 7, BUN 11, Creatinine 0.48 L, Estim Creat Clear Calc 38.68, Est GFR (MDRD) Af Amer 166, Est GFR (MDRD) Non-Af 137, BUN/Creatinine Ratio 23.0 H, Glucose 129 H, Calcium 8.9, Magnesium 1.7, Troponin I High Sens 41 12/13/22 03:42: B-Natriuretic Peptide 610.1 H 12/13/22 05:55: Troponin I High Sens 42 Micro: Microbiology 12/13/22 03:42 Nasal Secretion SARS-CoV-2 & FLU Antigen (Rapid) - Final Radiology Impression Chest X-Ray 12/13/22 04:25 IMPRESSION: Mild pulmonary edema and small right pleural effusion. Electronically Signed: Justin Cazares MD at 4:49 EDT , Assessment & Plan Assessment/Plan (1) Acute exacerbation of CHF (congestive heart failure): (2) COPD (chronic obstructive pulmonary disease): (3) Acute hypokalemia: (4) QT prolongation: PLAN: Plan Acute exacerbation of congestive heart failure. Unknown whether preserved ejection fraction or reduced ejection fraction. Place on monitored bed at the progressive care unit Weight on admission to the floor; and then daily Strict I&O's Chest x-ray interpreted by radiologist as mild pulmonary edema and small right pleural effusion. Chest x-ray was visualized and independently interpreted and I agree with radiologist interpretation. EKG independently reviewed confirms sinus rhythm with QTc prolongation Emergency department labs reviewed showed BNP of 610.1. Last and only BNP on file was on 04/18/2020. BNP at that time was 42.8. Lasix 40 mg IV push ordered. Reportedly patient was given supplemental potassium pill at the ED on presentation and she had difficulty time swallowing it. Potassium oral liquid ordered. Transthoracic echocardiogram to evaluate left ventricular wall motion and systolic function. Monitor electrolytes and renal function Trend blood pressure Faraz wrap to bilateral lower extremities Fluid restriction of 1500 mls daily Cardiac diet Hypertensive emergency Systolic blood pressure of 191/95 on presentation. Received captopril and sublingual nitroglycerin on presentation. Nitroglycerin paste x1 ordered. Trend blood pressures. Lasix as above. Prolonged QTc interval EKG showed sinus rhythm with prolonged QTc interval. Avoid QTc prolongation drugs. Hypokalemia Potassium level on presentation was 3.1. Potassium supplementation ordered. Magnesium level of 1.7. Replaced. COPD Does not appear to be in exacerbation. As needed albuterol ordered DVT prophylaxis Subcutaneous Lovenox ordered. Charges/Coding Visit Charges Inpatient E&M: 49212 Init Hosp L3
--- NOTE | 2022-12-13 08:03 | ECHOD_ITS ---
Reason For Study: Dyspnea/SOB Procedure This was a 2D Doppler, Color Flow transthoracic echocardiogram. The study was technically difficult. Patient scanned sitting upright due to SOB and a broken left arm. Exam performed portable in patient room. Left Ventricle Normal LV size. The estimated ejection fraction is 55 %. Diastolic function is indeterminate. No regional wall motion abnormalities noted. Right Ventricle Normal RV size. Normal systolic function. Atria The left atrium is mildly enlarged. Normal right atrium. No doppler evidence for ASD. Mitral Valve There is no mitral valve stenosis. Trivial mitral valve insufficiency. Tricuspid Valve There is no tricuspid stenosis. Trivial tricuspid valve insufficiency. Unable to estimate RV systolic pressure due to insufficient tricuspid regurgitant envelope. Aortic Valve Trisinus/trileaflet aortic valve. There is no aortic stenosis. Mild (1+) aortic valve insufficiency. Pulmonic Valve There is no pulmonic valvular stenosis. No pulmonic valve insufficiency. Great Vessels Normal aortic root. Pericardium/Pleural No pericardial effusion. MMode/2D Measurements & Calculations LVIDd: 4.7 cm IVSd: 1.3 cm Ao root diam: 3.5 cm LVIDs: 3.6 cm LVPWd: 1.1 cm LA dimension: 4.0 cm RVDd: 3.3 cm FS: 23.0 % LAV(MOD-bp): 63.7 ml LA A4 area: 20.2 cm2 RA A4 area: 13.3 cm2 LAV(MOD-bp) Indexed: 41.5 ml/m2 LAV(MOD-sp2): 62.9 ml LAV(MOD-sp4): 58.0 ml Time Measurements MV dec time: 0.13 sec Doppler Measurements & Calculations MV E max henrry: 91.5 cm/sec Lat Peak E' Henrry: 6.7 cm/sec Med Peak E' Henrry: 6.8 cm/sec MV A max henrry: 97.0 cm/sec E/E' lat: 13.6 E/E' med: 13.5 MV E/A: 0.94 MV V2 max: 101.4 cm/sec MV P1/2t max henrry: 95.6 cm/sec Ao V2 max: 169.7 cm/sec MV max P.1 mmHg MV P1/2t: 52.0 msec Ao max P.5 mmHg MV V2 mean: 67.2 cm/sec MV dec slope: 538.3 cm/sec2 Ao V2 mean: 106.4 cm/sec MV mean P.1 mmHg MVA(P1/2t): 4.2 cm2 Ao mean P.4 mmHg MV V2 VTI: 28.1 cm Ao V2 VTI: 30.3 cm AI max henrry: 361.9 cm/sec LV V1 max: 123.3 cm/sec MR max henrry: 566.2 cm/sec AI max P.4 mmHg LV V1 max P.1 mmHg MR max P.2 mmHg AI dec slope: 204.0 cm/sec2 AI P1/2t: 519.5 msec PA V2 max: 88.9 cm/sec ECHO/Echo Complete Interpretation Summary The estimated ejection fraction is 55 %. Diastolic function is indeterminate. The left atrium is mildly enlarged. Trivial mitral valve insufficiency. Mild (1+) aortic valve insufficiency. Ordering Physician: Juve Patino Referring Physician: Francis Brownlee Performed By: Pancho Toure RCS
--- NOTE | 2022-12-13 09:30 | CASEMGMT ---
Addendum entered by Nancy Nicolas 12/13/22 13:49: Patient was provided a list of HHC providers including quality and resource use data and consistent with the patient?s preferred geographic region, medical needs, and insurance network were provided from the [employer] Guide. Pt to review and then give choices. Addendum entered by Nancy Nicolas 12/13/22 12:45: Pt reports her oxygen is 3L at HS through [employer]. Pt does have portable tanks that could be brought in should pt need to dc home. Original Note: KASSIDY CARPENTER Assessment: Face to Face with pt for initial transition planning/care coordination assessment. KASSIDY CARPENTER introduced self and role at [facility], pt voices understanding and consents to assessment. Pt is A/O x4 and answers all questions appropriately at this time. Pt sitting up in bed in no distress with oxygen on. Care providers, pharmacy, and demographics verified/updated. Admitting Dx:acute decompensated heart failure PCP: [facility] Specialists:Pt denies. States she saw a cardio one time but never followed up. Preferred Pharmacy: [facility] Insurance: [facility] Dual Prescription Benefit: yes LNOK:Cisco Johnston, son Living Arrangements: Pt lives alone in an upstairs apt with 8 steps to enter with a rail on both sides. Pt reports she has [employer]'s that run errands, get groceries, do laundry and prepare meals. Pt states she is I in ADL's. Transportation: Pt utilizes her insurance for transporation. DME/HHC/SNF: Pt has a BSC, cane, walker, medical chair but it is not a lift chair. Pt reports she has oxygen on 3L through [employer]. Pt has aides paid by insurance through [place]. Pt denies SNF stays. Pt states no concerns with going home at time of dc. She is interested in HHC. She does have 2 meal delivery services that deliver 14 meals every 2 wks. Pt is interested in HHC SN. 6 clicks=20, no therapy ordered. Pt states no further concerns/needs. CM to follow.Advised pt to ask CM if any further question/concerns/needs arise, voices understanding. Pt Goal: Home with HHC and aide services Plan:Home with HHC and aide services
[2022-12-13] MEDS: Potassium Chloride Oral Soln 20 MEQ/15 ML UDC 40 MEQ PO (09:56)
[2022-12-13] MEDS: Nitroglycerin Oint 1 INCH PACKET TD (09:59)
[2022-12-13] MEDS: 0.9% Saline Lock 10 ML Syringe IV ×3 (10:02→18:13)
[2022-12-13] MEDS: Enoxaparin 40 MG/0.4 ML Syringe SC (10:02)
[2022-12-13] MEDS: Ondansetron 4 MG/2 ML Vial IV (10:40)
[2022-12-13] MEDS: HYDROcodone Bitartrate/Apap 5/325 Tablet PO (10:50)
[2022-12-13] MEDS: Ipratropium/Albuterol Sulfate 3 ML AMPUL.NEB INHALATION ×2 (14:58→19:10)
[2022-12-13] MEDS: Budesonide Respules 0.5 MG/2 ML AMPUL.NEB. INHALATION (19:10)
[2022-12-14] VITALS (9 sets, daily range): BP systolic 122–160; BP diastolic 61–81; PULSE 80–105; RESP 16–24; TEMP 36.2–36.7; O2SAT 92–100; BMI 24.5
[2022-12-14] MEDS: clonazePAM 1 MG Tablet PO (00:18)
[2022-12-14] MEDS: Ipratropium/Albuterol Sulfate 3 ML AMPUL.NEB INHALATION ×4 (00:31→19:18)
--- NOTE | 2022-12-14 04:25 | EKG12_ITS ---
Test Reason : Blood Pressure : / mmHG Vent. Rate : 095 BPM Atrial Rate : 095 BPM P-R Int : 140 ms QRS Dur : 080 ms QT Int : 374 ms P-R-T Axes : 071 109 106 degrees QTc Int : 469 ms Normal sinus rhythm Rightward axis Borderline ECG No previous ECGs available Confirmed by DEVON SMITH, VIN ([id number]), editor news JAYCE FERNANDEZ ([id number]) on 12/17/2022 10:18:12 AM Referred By: Confirmed By:TERESA OSORIO MD
[2022-12-14 05:41] LABS: Absolute Lymphocyte Count 1.23 X10^3/uL (0.83-4.51); Absolute Neutrophil Count 5.3 X10^3/uL (2.0-7.7); Basophil# 0.03 X10^3/uL; Basophil% 0.4 % (0-1); Eosinophil# 0.02 X10^3/uL; Eosinophils% 0.3 % (0-5); Hematocrit 36.3 % (37-47); Hemoglobin 10.9 g/dL (12.0-15.0); Lymphocyte # 1.23 X10^3/ul (0.83-4.51); Lymphocyte % 16.6 % (19-41); Mean Corpuscular Hgb 29.4 pg (27.0-32.0); Mean Corpuscular Volume 97.8 fL (81-99); Mean Platelet Vol. 9.6 fl (6.2-12.0); Monocyte# 0.83 X10^3/uL; Monocyte% 11.2 % (0-10); NRBC Flagged by Analyzer 0 % (0-5); Neutrophil # 5.28 X10^3/uL (2.7-7.7); Neutrophil % 71.2 % (47-70); Platelet Count 362 K/mm3 (150-450); RBC Distribution Width CV 16.1 % (11.6-14.6); RBC Distribution Width SD 57.8 fl (35.1-43.9); Red Blood Count 3.71 M/mm3 (4.2-5.4); White Blood Count 7.4 K/mm3 (4.4-11.0)
[2022-12-14 06:04] LABS: Anion Gap 4 (5-15); BUN 10 mg/dL (7-18); BUN/Creat Ratio 19.8 RATIO (10-20); Calcium,Total 8.7 mg/dL (8.5-10.1); Chloride 101 mmol/L (98-107); EST Glomerular Filtration Rate 129 mL/min (>60); Est Glom Filt Rate - Afr Amer 156 mL/min (>60); Estimated Creatinine Clearance 38.68 ml/min; Glucose 111 mg/dL (74-106); Potassium 2.9 mmol/L (3.5-5.1); Sodium Level 141 mmol/L (136-145)
[2022-12-14] MEDS: Budesonide Respules 0.5 MG/2 ML AMPUL.NEB. INHALATION ×2 (07:10→19:18)
[2022-12-14] MEDS: Potassium Chloride Oral Soln 20 MEQ/15 ML UDC 40 MEQ PO ×2 (09:06→18:06)
[2022-12-14] MEDS: HYDROcodone Bitartrate/Apap 5/325 Tablet PO ×2 (09:06→19:57)
[2022-12-14] MEDS: Furosemide 40 MG/4 ML Vial IV (09:06)
[2022-12-14] MEDS: Enoxaparin 40 MG/0.4 ML Syringe SC (09:06)
[2022-12-14] MEDS: 0.9% Saline Lock 10 ML Syringe IV (09:07)
[2022-12-14] MEDS: Ondansetron 4 MG/2 ML Vial IV (09:12)
--- NOTE | 2022-12-14 09:59 | PN.HOSP_ITS ---
Reason for Visit Reason for Visit: Diagnoses Hypokalemia (12/13/22) Heart failure, unspecified (12/13/22) Chronic obstructive pulmonary disease, unspecified (12/13/22) Abnormal electrocardiogram [ECG] [EKG] (12/13/22) Subjective Subjective Reports her legs are still hurting and swollen but she is feeling better than she had been and her breathing is slowly improving Objective Data Objective Data Vital Signs: Vital Signs Temp Pulse Resp BP Pulse Ox O2 Del Method O2 Flow Rate 98.1 F 105 H 17 160/81 H 92 Nasal Cannula 6 12/14/22 03:20 12/14/22 07:10 12/14/22 07:10 12/14/22 03:20 12/14/22 07:10 12/14/22 08:54 12/14/22 08:54 Oxygen Flow Rate (L/min) 6 Oxygen Delivery Method Nasal Cannula Weight: 57.1 kg Body Mass Index (BMI) 24.5 Intake & Output: Intake and Output for Last 24 Hours 12/12/22 12/13/22 12/14/22 23:59 23:59 23:59 Intake Total 644 / 644 Output Total 1400 / 1400 Balance -756 / -756 Medical Nutrition Assessment Dietitian: Malnutrition Criteria Met Start: 12/13/22 12:50 Freq: Status: Active Protocol: Document 12/13/22 12:50 RMA (Rec: 12/13/22 12:50 RMA [id number]) Nutrition Malnutrition Evidence of Malnutrition Exists Yes Malnutrition (moderate): Chronic Evidenced By Suboptimal Energy Intake ( Moderate),Weight Loss ( Moderate) Clinical Problem Chronic Disease or Condition Related Malnutrition Etiology Moderate protein-calorie malnutrition in the context of chronic disease related to increased energy expenditure and inadequate oral intake Signs/Symptoms as evidenced by ~14% wt loss x 1 year and PO meeting less than 75% estimated nutrition needs x past 1 year Status Active Problem Recommendation Dietitian Recommendations/Changes Continue cardiac/sodium- restricted diet with 1500ml FR . Will add ensure compact BID w/ breakfast and dinner. Will add magic cup w/ lunch meal for tolerance. Adjust ONS as needed to optimize PO and prevent further weight loss. Lab / Micro Data Result Diagrams: 12/14/22 05:17 12/14/22 05:17 Labs: Laboratory Results - last 24 hr 12/14/22 05:17: WBC 7.4, RBC 3.71 L, Hgb 10.9 L, Hct 36.3 L, MCV 97.8, MCH 29.4, MCHC 30.0 L D, RDW Std Deviation 57.8 H, RDW Coeff of Tanisha 16.1 H, Plt Count 362, MPV 9.6, Immature Gran % (Auto) 0.300, Neut % (Auto) 71.2 H, Lymph % (Auto) 16.6 L, [place] % (Auto) 11.2 H, Eos % (Auto) 0.3, Baso % (Auto) 0.4, Absolute Neuts (auto) 5.3, Absolute Lymphs (auto) 1.23, Nucleated RBC % 0 12/14/22 05:17: Sodium 141, Potassium 2.9 L, Chloride 101, Carbon Dioxide 36.0 H , Anion Gap 4 L, BUN 10, Creatinine 0.50 L, Estim Creat Clear Calc 38.68, Est GFR (MDRD) Af Amer 156, Est GFR (MDRD) Non-Af 129, BUN/Creatinine Ratio 19.8, Glucose 111 H, Calcium 8.7 12/14/22 05:17: Magnesium 2.0 Micro: Microbiology 12/13/22 03:42 Nasal Secretion SARS-CoV-2 & FLU Antigen (Rapid) - Final Radiography Diagnostic Testing: Radiology Impression Echocardiogram 12/13/22 08:03 Interpretation Summary The estimated ejection fraction is 55 %. Diastolic function is indeterminate. The left atrium is mildly enlarged. Trivial mitral valve insufficiency. Mild (1+) aortic valve insufficiency. Ordering Physician: Juve Patino Referring Physician: Francis Brownlee Performed By: Pancho Toure RCS Physical Exam Narrative General: Alert, oriented, no apparent distress HEENT: Atraumatic, normocephalic Eyes: Anicteric, normal conjunctiva, extraocular movements grossly intact Neck: Supple Respiratory: Somewhat diminished at the bases with decreased airflow but no overt wheezes or rhonchi, improving respiratory effort Cardiovascular: Regular rate and rhythm GI: Soft, nontender, nondistended Extremities: Trace to 1+ lower extremity edema bilaterally, improved from yes terday Musculoskeletal: Moving all extremities Neuro: No overt focal neurological deficits Skin: No rashes appreciated Psych: Cooperative Assessment & Plan Assessment/Plan (1) Acute exacerbation of CHF (congestive heart failure): (2) COPD (chronic obstructive pulmonary disease): (3) Acute hypokalemia: (4) QT prolongation: PLAN: Plan #Acute exacerbation of congestive heart failure, likely diastolic/chronic hypoxic respiratory failure secondary to COPD on 3 L home O2 in the evenings and at bedtime -CXR w/ small right pleural effusion and mild pulmonary edema -BNP 510 in ED, last BNP in system 2019 was 42 -Admitted to PCU and started on lasix 40IV -No Echo in our system, repeat echo 4.1 w/ EF 55% and diastolic function indeterminant and unable to estimate RVSP -improving -daily weights, I's and O's -BLE allison wraps -Fluid restriction, cardiac diet -Still has high O2 requirement of 6 L still satting mid to low 90s. Continue DuoNebs and budesonide as well as albuterol as needed given her concomitant COPD. Usually only uses 3 L home O2 in the evenings and at bedtime per patient. No wheezing some empiric steroids however if still not continued improvement tomorrow can consider addition of steroids as this may be playing a part though suspect that this is primarily overload specially given improvement with Lasix. Slight increase in bicarb this a.m. which could be due to contraction versus CO2 retention, suspect its combination especially with her presentation, will order BiPAP for tonight #Hypertensive emergency -Systolic blood pressure of 191/95 on presentation. -Received captopril and sublingual nitroglycerin on presentation. Nitroglycerin paste x1 ordered. -lasix -4/2: On Lasix 40 IV twice daily, improving significantly, will decrease to Lasix 40 IV daily. Blood pressure significantly improved with only IV Lasix, Trend blood pressure and monitor for need for additional agents #Prolonged QTc interval EKG showed sinus rhythm with prolonged QTc interval. Avoid QTc prolongation drugs. #Hypokalemia -Continue to monitor and replace #COPD -Does not appear to be in exacerbation. 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 Charges/Coding Visit Charges Inpatient E&M: 62026 Subs Hosp L2
[2022-12-14 10:36] LABS: Troponin-I HS 46 pg/mL (3.0-54.0)
--- NOTE | 2022-12-14 19:18 | CPS ---
Pt stated that she does not wear BiPAP or CPAP at home and requested not to wear one here.
--- NOTE | 2022-12-14 20:10 | EKG12_ITS ---
Test Reason : CP Blood Pressure : / mmHG Vent. Rate : 097 BPM Atrial Rate : 097 BPM P-R Int : 136 ms QRS Dur : 076 ms QT Int : 348 ms P-R-T Axes : 069 077 086 degrees QTc Int : 441 ms Sinus rhythm with occasional Premature ventricular complexes Otherwise normal ECG When compared with ECG of 13-DEC-2022 03:30, MANUAL COMPARISON REQUIRED, DATA IS UNCONFIRMED Confirmed by DEVON SMITH, VIN ([id number]), video effects editor JAYCE FERNANDEZ ([id number]) on 12/17/2022 10:14:57 AM Referred By: JULIEN Confirmed By:TERESA OSORIO MD
--- NOTE | 2022-12-14 21:10 | RAD_ITS ---
EXAM: XR CHEST, 1 VIEW CLINICAL INDICATION: chest pain TECHNIQUE: Frontal view of the chest. This report was created using [employer] report generation technology. COMPARISON: 12/13/2022 FINDINGS: LUNGS AND PLEURAL SPACES: There are minimal interstitial opacities at the lung bases. No pneumothorax. No effusion. HEART: Unremarkable. Cardiac silhouette not enlarged. MEDIASTINUM: Central airways and mediastinal contour are unremarkable. BONES/JOINTS: Unremarkable. SOFT TISSUES: Unremarkable. RAD/Chest 1 View (Portable) IMPRESSION: Trace interstitial opacities which may represent early edema. There is no focal consolidation. Electronically Signed: Dashawn Diaz MD at 21:55 EDT ,
[2022-12-14] MEDS: Aspirin 325 MG Tablet PO (21:15)
[2022-12-15] VITALS (7 sets, daily range): BP systolic 122–156; BP diastolic 67–82; PULSE 86–109; RESP 15–20; TEMP 36.6–37.2; O2SAT 92–95; BMI 24.6
[2022-12-15] MEDS: clonazePAM 1 MG Tablet PO (00:01)
[2022-12-15 06:23] LABS: Absolute Lymphocyte Count 1.08 X10^3/uL (0.83-4.51); Absolute Neutrophil Count 7.7 X10^3/uL (2.0-7.7); Basophil# 0.02 X10^3/uL; Basophil% 0.2 % (0-1); Eosinophil# 0.03 X10^3/uL; Eosinophils% 0.3 % (0-5); Hematocrit 37.7 % (37-47); Hemoglobin 11.1 g/dL (12.0-15.0); Lymphocyte # 1.08 X10^3/ul (0.83-4.51); Lymphocyte % 10.9 % (19-41); Mean Corp Hgb Conc 29.4 g/dL (32-36); Mean Corpuscular Hgb 29.6 pg (27.0-32.0); Mean Corpuscular Volume 100.5 fL (81-99); Monocyte# 1.01 X10^3/uL; Monocyte% 10.2 % (0-10); NRBC Flagged by Analyzer 0 % (0-5); Neutrophil # 7.74 X10^3/uL (2.7-7.7); Platelet Count 357 K/mm3 (150-450); RBC Distribution Width CV 15.6 % (11.6-14.6); Red Blood Count 3.75 M/mm3 (4.2-5.4); White Blood Count 9.9 K/mm3 (4.4-11.0)
[2022-12-15 06:39] LABS: Anion Gap 1 (5-15); BUN 11 mg/dL (7-18); BUN/Creat Ratio 25.2 RATIO (10-20); Calcium,Total 8.7 mg/dL (8.5-10.1); Chloride 99 mmol/L (98-107); Creatinine, Serum 0.44 mg/dL (0.55-1.02); EST Glomerular Filtration Rate 153 mL/min (>60); Est Glom Filt Rate - Afr Amer 185 mL/min (>60); Estimated Creatinine Clearance 38.68 ml/min; Glucose 126 mg/dL (74-106); Sodium Level 138 mmol/L (136-145)
[2022-12-15] MEDS: Ipratropium/Albuterol Sulfate 3 ML AMPUL.NEB INHALATION ×3 (07:21→20:43)
[2022-12-15] MEDS: Budesonide Respules 0.5 MG/2 ML AMPUL.NEB. INHALATION ×2 (07:22→20:43)
[2022-12-15] MEDS: 0.9% Saline Lock 10 ML Syringe IV ×2 (07:45→21:13)
[2022-12-15] MEDS: HYDROcodone Bitartrate/Apap 5/325 Tablet PO ×2 (07:45→17:42)
[2022-12-15] MEDS: Furosemide 40 MG/4 ML Vial IV ×3 (07:47→21:13)
[2022-12-15] MEDS: Enoxaparin 40 MG/0.4 ML Syringe SC (07:47)
[2022-12-15] MEDS: Potassium Chloride Oral Soln 20 MEQ/15 ML UDC 40 MEQ PO ×2 (07:47→17:43)
--- NOTE | 2022-12-15 10:19 | PN.HOSP_ITS ---
Reason for Visit Reason for Visit: Diagnoses Hypokalemia (12/13/22) Heart failure, unspecified (12/13/22) Chronic obstructive pulmonary disease, unspecified (12/13/22) Abnormal electrocardiogram [ECG] [EKG] (12/13/22) Subjective Subjective Patient is a 67-year-old lady admitted with shortness of breath diagnosed with acute hypoxia secondary to combination of CHF and COPD admitted to a monitored bed where patient is currently being managed Objective Data Objective Data Vital Signs: Vital Signs Temp Pulse Resp BP Pulse Ox O2 Del Method O2 Flow Rate 99 F 109 H 15 140/80 H 95 Nasal Cannula 5 12/15/22 03:00 12/15/22 07:20 12/15/22 07:20 12/15/22 03:00 12/15/22 07:20 12/15/22 08:21 12/15/22 08:21 Oxygen Flow Rate (L/min) 5 Oxygen Delivery Method Nasal Cannula Weight: 57.2 kg Body Mass Index (BMI) 24.6 Intake & Output: Intake and Output for Last 24 Hours 12/13/22 12/14/22 12/15/22 23:59 23:59 23:59 Intake Total 644 / 644 520 / 520 Output Total 1400 / 1400 700 / 700 Balance -756 / -756 -180 / -180 Medical Nutrition Assessment Dietitian: Malnutrition Criteria Met Start: 12/13/22 12:50 Freq: Status: Active Protocol: Document 12/13/22 12:50 RMA (Rec: 12/13/22 12:50 RMA [id number]) Nutrition Malnutrition Evidence of Malnutrition Exists Yes Malnutrition (moderate): Chronic Evidenced By Suboptimal Energy Intake ( Moderate),Weight Loss ( Moderate) Clinical Problem Chronic Disease or Condition Related Malnutrition Etiology Moderate protein-calorie malnutrition in the context of chronic disease related to increased energy expenditure and inadequate oral intake Signs/Symptoms as evidenced by ~14% wt loss x 1 year and PO meeting less than 75% estimated nutrition needs x past 1 year Status Active Problem Recommendation Dietitian Recommendations/Changes Continue cardiac/sodium- restricted diet with 1500ml FR . Will add ensure compact BID w/ breakfast and dinner. Will add magic cup w/ lunch meal for tolerance. Adjust ONS as needed to optimize PO and prevent further weight loss. Lab / Micro Data Result Diagrams: 12/15/22 05:41 12/15/22 05:41 Labs: Laboratory Results - last 24 hr 12/14/22 09:55: Troponin I High Sens 46 12/15/22 05:41: WBC 9.9, RBC 3.75 L, Hgb 11.1 L, Hct 37.7, MCV 100.5 H, MCH 29.6, MCHC 29.4 L, RDW Std Deviation 58.0 H, RDW Coeff of Tanisha 15.6 H, Plt Count 357, MPV 10.0, Immature Gran % (Auto) 0.400, Neut % (Auto) 78.0 H, Lymph % (Auto) 10.9 L, [place] % (Auto) 10.2 H, Eos % (Auto) 0.3, Baso % (Auto) 0.2, Absolute Neuts (auto) 7.7, Absolute Lymphs (auto) 1.08, Nucleated RBC % 0 12/15/22 05:41: Sodium 138, Potassium 4.0, Chloride 99, Carbon Dioxide 38.0 H, Anion Gap 1 L, BUN 11, Creatinine 0.44 L, Estim Creat Clear Calc 38.68, Est GFR (MDRD) Af Amer 185, Est GFR (MDRD) Non-Af 153, BUN/Creatinine Ratio 25.2 H, Glucose 126 H, Calcium 8.7 Micro: Microbiology 12/13/22 03:42 Nasal Secretion SARS-CoV-2 & FLU Antigen (Rapid) - Final Radiography Diagnostic Testing: Radiology Impression Chest X-Ray 12/14/22 21:10 IMPRESSION: Trace interstitial opacities which may represent early edema. There is no focal consolidation. Electronically Signed: Dashawn Diaz MD at 21:55 EDT , Physical Exam Narrative GENERAL: Lethargic but arousable HEENT: Atraumatic; normocephalic EYES; Anicteric, Normal Conjunctiva NECK; supple, normal thyroid, RESPIRATORY: Diminished to auscultation, with occasional wheezes CARDIOVASCULAR: Regular S1 S2, GI: soft, normoactive bowel sounds, : No Renal angle tenderness; EXTREMITIES: No edema, no clubbing, MUSCULOSKELETAL: no muscle wasting NEURO: Awake; no lateralizing signs. SKIN: No Rash PSYCH; Flat affect Assessment & Plan Assessment/Plan (1) Acute exacerbation of CHF (congestive heart failure): (2) COPD (chronic obstructive pulmonary disease): (3) Acute hypokalemia: (4) QT prolongation: PLAN: Plan Patient is a 67-year-old lady admitted with shortness of breath diagnosed with acute hypoxia secondary to combination of CHF and COPD admitted to a monitored bed where patient is currently being managed 1. Acute hypoxia ? Secondary to combination of CHF and COPD treatment of the underlying conditions initiated patient placed on supplemental oxygen titrated to keep saturation greater than 90 currently on 5 L flow per minute 2. Acute congestive heart failure with preserved ejection fraction ? Echo demonstrated EF of 55%. Patient is on IV diuretics fluid restriction strict input and output as well as daily weight 3. COPD with acute exacerbation - Patient started on bronchodilator treatment, systemic steroid as well as a ntibiotic therapy. Patient placed on oxygen titrated to keep saturation greater than 90. 4. Acute hypertensive emergency ? Systolic blood pressure was as high as 191/95 patient did receive captopril as well as nitroglycerin and Nitropaste patient blood pressure has since stabilized 5. Hypokalemia ? Corrected per protocol 6. Chronic pain ? Patient advised on the need to be cautious with her pain meds since may depress her breathing 7. DVT prophylaxis - On enoxaparin Time spent in the patient's overall evaluation,decision-making process, review of diagnostic data, adjustment of management, discussion with other providers, nursing nursing and ancillary staff involved in patient's care documentation, 40 Minutes Charges/Coding Visit Charges Inpatient E&M: 00517 Subs Hosp L2
[2022-12-15] MEDS: guaiFENesin 1,200 MG Tablet 1200 MG PO ×2 (11:41→21:13)
[2022-12-15] MEDS: Cefdinir 300 MG Capsule PO ×2 (11:41→21:13)
[2022-12-15] MEDS: Acetaminophen 500 MG Tablet 1000 MG PO ×2 (13:56→21:13)
--- NOTE | 2022-12-15 14:04 | CASEMGMT ---
A list of SNF providers including quality and resource use data and consistent with patient?s preferred geographic region, medical needs, and insurance network were provided from the [facility] Guide. Son present to assist patient in SNF selection and SW to follow up. Samia Wheeler MSW, OCCUPATIONAL WORK EXPERIENCE TEACHER
--- NOTE | 2022-12-15 14:43 | CASEMGMT ---
Social Work Pt's son had also called in from [place], TRACY Samia spoke w/pt and other son in room in regard to placement. PRISCILA Staton
--- NOTE | 2022-12-15 19:00 | NURSING ---
Emergency documentation initiated at 19:00 on 12/15/22 d/t contingency staffing. Denisse YI
--- NOTE | 2022-12-15 22:20 | EKG12_ITS ---
Test Reason : CONVERTED TO NSR Blood Pressure : / mmHG Vent. Rate : 071 BPM Atrial Rate : 071 BPM P-R Int : 160 ms QRS Dur : 082 ms QT Int : 446 ms P-R-T Axes : 025 040 072 degrees QTc Int : 484 ms Sinus rhythm with Premature atrial complexes Minimal voltage criteria for LVH, may be normal variant ( Sokolow-Tinoco ) Borderline ECG When compared with ECG of 15-DEC-2022 22:57, MANUAL COMPARISON REQUIRED, DATA IS UNCONFIRMED Confirmed by DEVON SMITH, VIN ([id number]), online editor JAYCE FERNANDEZ ([id number]) on 12/17/2022 10:10:30 AM Referred By: Confirmed By:TERESA OSORIO MD
[2022-12-15] MEDS: clonazePAM 1 MG Tablet 0.5 MG PO (22:25)
--- NOTE | 2022-12-15 23:00 | EKG12_ITS ---
Test Reason : tachycardia Blood Pressure : / mmHG Vent. Rate : 161 BPM Atrial Rate : 000 BPM P-R Int : 000 ms QRS Dur : 078 ms QT Int : 244 ms P-R-T Axes : 000 081 197 degrees QTc Int : 399 ms Atrial fibrillation with rapid ventricular response Nonspecific ST and T wave abnormality Abnormal ECG When compared with ECG of 15-DEC-2022 22:24, MANUAL COMPARISON REQUIRED, DATA IS UNCONFIRMED Confirmed by DEVON SMITH, VIN ([id number]), photograph editor JAYCE FERNANDEZ ([id number]) on 12/17/2022 10:10:46 AM Referred By: ROSEMARY Confirmed By:TERESA OSORIO MD
--- NOTE | 2022-12-15 23:12 | PCM.PN.BLA ---
Progress Note Patient with A-fib with RVR. Reportedly patient has a history of A-fib. We will change prophylactic Lovenox to therapeutic. We will give Cardizem IV bolus. Magnesium on 12/15/2019 was normal. Potassium is normal. Check magnesium in am. BMP already ordered in am. Check TSH in am.
[2022-12-15] MEDS: dilTIAZem 25 MG/5 ML Vial 10 MG IV BOLUS (23:17)
[2022-12-16] VITALS (23 sets, daily range): BP systolic 102–146; BP diastolic 54–72; PULSE 69–158; RESP 12–30; TEMP 36.4–37; O2SAT 89–97; BMI 24.3
[2022-12-16] MEDS: HYDROcodone Bitartrate/Apap 5/325 Tablet PO ×2 (00:26→14:25)
--- NOTE | 2022-12-16 00:52 | NURSING ---
This RN received report from Luciana YI and is taking over pt care. Denisse YI
[2022-12-16] MEDS: Enoxaparin 30 MG/0.3 ML Syringe SC (01:01)
--- NOTE | 2022-12-16 04:41 | EKG12_ITS ---
Test Reason : rhythm change Blood Pressure : / mmHG Vent. Rate : 089 BPM Atrial Rate : 089 BPM P-R Int : 140 ms QRS Dur : 078 ms QT Int : 376 ms P-R-T Axes : 040 067 093 degrees QTc Int : 457 ms Sinus rhythm with Premature atrial complexes Minimal voltage criteria for LVH, may be normal variant ( Sokolow-Tinoco ) Nonspecific T wave abnormality Abnormal ECG When compared with ECG of 14-DEC-2022 20:10, MANUAL COMPARISON REQUIRED, DATA IS UNCONFIRMED Confirmed by DEVON SMITH, VIN ([id number]), editorial specialist JAYCE FERNANDEZ ([id number]) on 12/17/2022 10:10:58 AM Referred By: ROSEMARY Confirmed By:TERESA OSORIO MD
[2022-12-16 04:49] LABS: Absolute Lymphocyte Count 0.53 X10^3/uL (0.83-4.51); Hematocrit 39.6 % (37-47); Hemoglobin 11.8 g/dL (12.0-15.0); Lymphocyte # 0.53 X10^3/ul (0.83-4.51); Lymphocyte % 6.1 % (19-41); Mean Corp Hgb Conc 29.8 g/dL (32-36); Mean Corpuscular Hgb 29.1 pg (27.0-32.0); Mean Corpuscular Volume 97.5 fL (81-99); Mean Platelet Vol. 10.2 fl (6.2-12.0); Monocyte# 0.21 X10^3/uL; Monocyte% 2.4 % (0-10); NRBC Flagged by Analyzer 0 % (0-5); Neutrophil # 7.99 X10^3/uL (2.7-7.7); Neutrophil % 91.2 % (47-70); POSITIVE DIFFERENTIAL YES; Platelet Count 387 K/mm3 (150-450); RBC Distribution Width CV 14.9 % (11.6-14.6); RBC Distribution Width SD 53.7 fl (35.1-43.9); Red Blood Count 4.06 M/mm3 (4.2-5.4); White Blood Count 8.8 K/mm3 (4.4-11.0)
[2022-12-16 04:54] LABS: Differential Indicated SCAN CRITERIA MET
[2022-12-16 05:24] LABS: Anion Gap 3 (5-15); BUN 13 mg/dL (7-18); BUN/Creat Ratio 27.7 RATIO (10-20); Calcium,Total 9.1 mg/dL (8.5-10.1); Chloride 92 mmol/L (98-107); Creatinine, Serum 0.47 mg/dL (0.55-1.02); EST Glomerular Filtration Rate 140 mL/min (>60); Est Glom Filt Rate - Afr Amer 169 mL/min (>60); Estimated Creatinine Clearance 38.68 ml/min; Glucose 170 mg/dL (74-106); Magnesium 2.2 mg/dL (1.6-2.6); Potassium 3.6 mmol/L (3.5-5.1); Sodium Level 135 mmol/L (136-145); Thyroid Stim Hormone (TSH) 0.16 uIU/mL (0.358-3.74)
[2022-12-16] MEDS: Furosemide 40 MG/4 ML Vial IV ×3 (05:31→23:15)
[2022-12-16] MEDS: 0.9% Saline Lock 10 ML Syringe IV ×4 (05:38→23:15)
[2022-12-16 06:22] LABS: Anisocytosis 1+
[2022-12-16] MEDS: Budesonide Respules 0.5 MG/2 ML AMPUL.NEB. INHALATION (07:16)
[2022-12-16] MEDS: Ipratropium/Albuterol Sulfate 3 ML AMPUL.NEB INHALATION ×2 (07:17→13:16)
--- NOTE | 2022-12-16 07:45 | PCM.PN.HOSP ---
Reason for Visit Reason for Visit: Diagnoses Hypokalemia (12/13/22) Heart failure, unspecified (12/13/22) Chronic obstructive pulmonary disease, unspecified (12/13/22) Abnormal electrocardiogram [ECG] [EKG] (12/13/22) Subjective Subjective Patient remains deconditioned. Patient's family requested for possible transfer to a [facility] facility. Patient went into A-fib with RVR was started on Cardizem drip which is currently being titrated to keep heart rate less than 100. Patient also started on scheduled p.o. Cardizem Objective Data Objective Data Vital Signs: Vital Signs Temp Pulse Resp BP Pulse Ox O2 Del Method O2 Flow Rate 97.9 F 73 14 103/59 L 93 Room Air 5 12/16/22 06:00 12/16/22 06:00 12/16/22 06:00 12/16/22 06:00 12/16/22 06:00 12/16/22 06:00 12/16/22 05:45 Oxygen Flow Rate (L/min) 5 Oxygen Delivery Method Room Air Weight: 56.5 kg Body Mass Index (BMI) 24.3 Intake & Output: Intake and Output for Last 24 Hours 12/14/22 12/15/22 12/16/22 23:59 23:59 23:59 Intake Total 520 / 520 71. / 71.09 Output Total 700 / 700 450 / 450 Balance -180 / -180 -450 / -450 71. / 71.09 Medical Nutrition Assessment Dietitian: Malnutrition Criteria Met Start: 12/13/22 12:50 Freq: Status: Active Protocol: Document 12/13/22 12:50 RMA (Rec: 12/13/22 12:50 RMA [id number]) Nutrition Malnutrition Evidence of Malnutrition Exists Yes Malnutrition (moderate): Chronic Evidenced By Suboptimal Energy Intake ( Moderate),Weight Loss ( Moderate) Clinical Problem Chronic Disease or Condition Related Malnutrition Etiology Moderate protein-calorie malnutrition in the context of chronic disease related to increased energy expenditure and inadequate oral intake Signs/Symptoms as evidenced by ~14% wt loss x 1 year and PO meeting less than 75% estimated nutrition needs x past 1 year Status Active Problem Recommendation Dietitian Recommendations/Changes Continue cardiac/sodium- restricted diet with 1500ml FR . Will add ensure compact BID w/ breakfast and dinner. Will add magic cup w/ lunch meal for tolerance. Adjust ONS as needed to optimize PO and prevent further weight loss. Lab / Micro Data Result Diagrams: 12/16/22 04:01 12/16/22 04:01 Labs: Laboratory Results - last 24 hr 12/16/22 04:01: WBC 8.8, RBC 4.06 L, Hgb 11.8 L, Hct 39.6, MCV 97.5, MCH 29.1, MCHC 29.8 L, RDW Std Deviation 53.7 H, RDW Coeff of Tanisha 14.9 H, Plt Count 387, MPV 10.2, Immature Gran % (Auto) 0.300, Neut % (Auto) 91.2 H, Lymph % (Auto) 6.1 L, [place] % (Auto) 2.4, Eos % (Auto) 0.0, Baso % (Auto) 0.0, Absolute Neuts (auto) 8.0 H, Absolute Lymphs (auto) 0.53 L, Nucleated RBC % 0, Anisocytosis 1+ 12/16/22 04:01: Sodium 135 L, Potassium 3.6, Chloride 92 L, Carbon Dioxide 40.0 H, Anion Gap 3 L, BUN 13, Creatinine 0.47 L, Estim Creat Clear Calc 38.68, Est GFR (MDRD) Af Amer 169, Est GFR (MDRD) Non-Af 140, BUN/Creatinine Ratio 27.7 H, Glucose 170 H, Calcium 9.1, Magnesium 2.2, TSH 0.16 L Micro: Microbiology 12/13/22 03:42 Nasal Secretion SARS-CoV-2 & FLU Antigen (Rapid) - Final Physical Exam Narrative GENERAL: Lethargic but arousable HEENT: Atraumatic; normocephalic EYES; Anicteric, Normal Conjunctiva NECK; supple, normal thyroid, RESPIRATORY: Diminished to auscultation, with occasional wheezes CARDIOVASCULAR: Regular S1 S2, GI: soft, normoactive bowel sounds, : No Renal angle tenderness; EXTREMITIES: No edema, no clubbing, MUSCULOSKELETAL: no muscle wasting NEURO: Awake; no lateralizing signs. SKIN: No Rash PSYCH; Flat affect Assessment & Plan Assessment/Plan (1) Acute exacerbation of CHF (congestive heart failure): (2) COPD (chronic obstructive pulmonary disease): (3) Acute hypokalemia: (4) QT prolongation: PLAN: Plan Patient is a 67-year-old lady admitted with shortness of breath diagnosed with acute hypoxia secondary to combination of CHF and COPD admitted to a monitored bed where patient is currently being managed 1. Acute hypoxia ? Secondary to combination of CHF and COPD treatment of the underlying conditions initiated patient placed on supplemental oxygen titrated to keep saturation greater than 90 currently on 5 L flow per minute 2. Acute congestive heart failure with preserved ejection fraction ? Echo demonstrated EF of 55%. Patient is on IV diuretics fluid restriction strict input and output as well as daily weight 3. COPD with acute exacerbation - Patient started on bronchodilator treatment, systemic steroid as well as antibiotic therapy. Patient placed on oxygen titrated to keep saturation greater than 90. 4. Acute hypertensive emergency ? Systolic blood pressure was as high as 191/95 patient did receive captopril as well as nitroglycerin and Nitropaste patient blood pressure has since stabilized 5. Hypokalemia ? Corrected per protocol 6. Chronic pain ? Patient advised on the need to be cautious with her pain meds since may depress her breathing 7. DVT prophylaxis -Eliquis 8, Moderate protein-calorie malnutrition in the context of chronic disease related to increased energy expenditure and inadequate oral intake as evidenced by ~14% wt loss x 1 year and PO meeting less than 75% estimated nutrition needs x past 1 year. Continue cardiac/sodium-restricted diet with 1500ml FR. Will add ensure compact BID w/ breakfast and dinner. Will add magic cup w/ lunch meal for tolerance. Adjust ONS as needed to optimize PO and prevent further weight loss. 9. Paroxysmal A-fib with RVR ? Started on Cardizem drip titrated to keep heart rate less than 100. Also started on p.o. Cardizem. Patient was started on systemic anticoagulation with Eliquis with a Paulo vas 2 score being greater than 2 Time spent in the patient's overall evaluation,decision-making process, review of diagnostic data, adjustment of management, discussion with other providers, nursing nursing and ancillary staff involved in patient's care documentation, 60 Minutes Charges/Coding Visit Charges Inpatient E&M: 25639 [facility] Hosp L3
[2022-12-16] MEDS: Potassium Chloride Oral Soln 20 MEQ/15 ML UDC 40 MEQ PO ×2 (08:27→16:21)
[2022-12-16] MEDS: guaiFENesin 1,200 MG Tablet 1200 MG PO ×2 (08:28→23:14)
[2022-12-16] MEDS: Cefdinir 300 MG Capsule PO ×2 (08:28→23:14)
--- NOTE | 2022-12-16 08:50 | CASEMGMT ---
TRACY received a voice mail from Gabriel with [facility]. Patient has a medical alert button, 14 meals a week, and 40 hours of personal care a week. [phone] TRACY also received a voice mail from Maida with [facility]. She would like an update. [phone] Stacy Sadler CASING RUNNING MACHINE TENDER [place]
[2022-12-16] MEDS: Enoxaparin 60 MG/0.6 ML Syringe SC (09:32)
--- NOTE | 2022-12-16 09:44 | CASEMGMT ---
SW spoke with Pt regarding SNF placement. Pt requested selections closer to [place] where her children are located. Pt lives in [place] so list was SNF's closest to [place]. Provided patient with a new list and patient and son will review. Samia Wheeler WINDCHILL ADMINISTRATOR, WEB DESIGN INTERN
--- NOTE | 2022-12-16 10:58 | CASEMGMT ---
Pt requested [facility] (2nd choice) for SNF. Referral sent to [facility] via [facility], PT/OT evaluations will need sent when complete. Samia Wheeler CREDIT CASHIER, SUPERVISOR STONE
[2022-12-16] MEDS: dilTIAZem CD 120 MG Capsule PO ×2 (11:38→23:14)
[2022-12-16] MEDS: APIXABAN 5 MG TABLET PO ×2 (11:38→23:15)
--- NOTE | 2022-12-16 12:22 | RAD_ITS ---
EXAM: XR BILATERAL RIBS, 3 VIEWS CLINICAL INDICATION: fall TECHNIQUE: 5 images, 3 of the left ribs, 2 of the right ribs. COMPARISON: December 14, 2022, including the patient''s known left humeral neck fracture. FINDINGS: LUNGS AND PLEURAL SPACES: Unremarkable. No consolidation or edema. No pneumothorax. No effusion. BONES/JOINTS: Again noted displaced left humeral neck fracture, please see the shoulder radiograph report. Intact right shoulder. No sclerotic or destructive changes observed. No displaced rib fracture identified. SOFT TISSUES: Unremarkable. No soft tissue swelling or gas. VASCULATURE: Peripheral calcification of the infrarenal aorta, it appears mildly aneurysmal at roughly 4 cm. Intra-abdominal aorta is not fully included on prior chest CT March 03, 2022 but is slightly prominent on the most inferior image included. RAD/Ribs Bilat 3V No CXR IMPRESSION: 1. No rib or right shoulder fracture identified. 2. Left humeral neck fracture again noted. 3. Mild infrarenal aortic aneurysm is suspected, it was not fully included on the prior chest CTA March 03, 2020. Noncalcified thrombus was noted within the inferior abdominal aortic lumen without aneurysm on the report of CT abdomen and pelvis 2019. Consider follow-up abdomen and pelvis CT if it is thought to be indicated. Electronically Signed: Shena Hodge MD at 17:45 EDT ,
--- NOTE | 2022-12-16 13:02 | CASEMGMT ---
[facility] has accepted patient. However, [facility] was patient's first choice and they have not yet responded. Patient was also asking to have papers notarized, but there are no notaries available. TRACY was then informed patient wanted SW. This TRACY and TRACY Gracia met with patient. Introduced self and role at [facility]. Samia has already met patient. Patient's son was not present in the room. SW will check back. It is unclear what papers patient needed notarized or witnessed. Patient did ask for Healthcare Power of Fixed Income Portfolio Manager papers. Samia did take those back to patient. Stacy Sadler HAT BRIM AND CROWN LAMINATING OPERATOR ELLE
--- NOTE | 2022-12-16 13:51 | NURSING ---
Faraz wraps off per patient request.
--- NOTE | 2022-12-16 14:15 | CASEMGMT ---
SW called Keila at [facility] and left her a voice mail asking about their response regarding patient's referral. Stacy Sadler BLOCKER AND POLISHER ELLE
--- NOTE | 2022-12-16 14:18 | CASEMGMT ---
TRACY and TRACY Floyd assisted patient in filling out HCPOA. Copies and original given to patient and copy placed on the chart. Samia Wheeler CORPORATE SECURITY OFFICER, ELECTRIC BRAIN WAVE EQUIPMENT MECHANIC
[2022-12-16] MEDS: clonazePAM 1 MG Tablet 0.5 MG PO (14:25)
--- NOTE | 2022-12-16 15:50 | RAD_ITS ---
EXAM: XR LEFT SHOULDER COMPLETE, 2 OR MORE VIEWS CLINICAL INDICATION: fall TECHNIQUE: Frontal and scapular Y views. COMPARISON: October 12, 2022, there was nondisplaced fracture of the proximal left humeral neck at that time. FINDINGS: BONES/JOINTS: There is now displaced fracture of the right humeral neck, with overlapping head and neck margins and distal fracture fragment superiorly and medially displaced and possibly impacted on the inferior margin of the left glenoid on the frontal view. The head is mildly rotated but remains over the glenoid but appears mildly inferiorly subluxed compared to prior exam. There is some callus formation at the lateral aspect of the fracture on the frontal view and some calcific density projecting posterior to the scapular body on the scapular Y view. Preservation of the joint space. SOFT TISSUES: Unremarkable. No soft tissue swelling or gas. No radiopaque foreign body. RAD/Shoulder min 2 Views IMPRESSION: 1. Again noted is left humeral neck fracture. 2. New humeral head rotation and mild subluxation. New fracture displacement with mild new lateral callus formation. 3. The clavicle, AC joint and scapular body appear intact. Electronically Signed: Shena Hodge MD at 17:35 EDT ,
--- NOTE | 2022-12-16 16:15 | CASEMGMT ---
TRACY let patient know that SW still has not heard from [facility]. SW let patient know SW did call earlier and no one has called back yet. TRACY told patient TRACY will follow up tomorrow. Stacy ALMEIDA
[2022-12-17] VITALS (7 sets, daily range): BP systolic 125–134; BP diastolic 57–74; PULSE 80–85; RESP 16–20; TEMP 36.4–36.8; O2SAT 93–99; BMI 23.9
[2022-12-17] MEDS: Furosemide 40 MG/4 ML Vial IV ×3 (05:13→22:45)
[2022-12-17 05:19] LABS: Absolute Lymphocyte Count 0.81 X10^3/uL (0.83-4.51); Absolute Neutrophil Count 11.8 X10^3/uL (2.0-7.7); Basophil# 0.01 X10^3/uL; Basophil% 0.1 % (0-1); Hematocrit 37.2 % (37-47); Hemoglobin 11.2 g/dL (12.0-15.0); Lymphocyte # 0.81 X10^3/ul (0.83-4.51); Lymphocyte % 5.8 % (19-41); Mean Corp Hgb Conc 30.1 g/dL (32-36); Mean Corpuscular Hgb 29.2 pg (27.0-32.0); Mean Corpuscular Volume 96.9 fL (81-99); Mean Platelet Vol. 10.2 fl (6.2-12.0); Monocyte# 1.19 X10^3/uL; Monocyte% 8.6 % (0-10); NRBC Flagged by Analyzer 0 % (0-5); Neutrophil # 11.82 X10^3/uL (2.7-7.7); Neutrophil % 85.1 % (47-70); Platelet Count 462 K/mm3 (150-450); RBC Distribution Width CV 14.9 % (11.6-14.6); RBC Distribution Width SD 52.8 fl (35.1-43.9); Red Blood Count 3.84 M/mm3 (4.2-5.4); White Blood Count 13.9 K/mm3 (4.4-11.0)
[2022-12-17] MEDS: 0.9% Saline Lock 10 ML Syringe IV ×4 (05:19→22:41)
[2022-12-17 05:36] LABS: Anion Gap 4 (5-15); BUN 18 mg/dL (7-18); BUN/Creat Ratio 37.1 RATIO (10-20); Calcium,Total 8.9 mg/dL (8.5-10.1); Chloride 92 mmol/L (98-107); Creatinine, Serum 0.48 mg/dL (0.55-1.02); EST Glomerular Filtration Rate 135 mL/min (>60); Est Glom Filt Rate - Afr Amer 163 mL/min (>60); Estimated Creatinine Clearance 38.68 ml/min; Glucose 134 mg/dL (74-106); Sodium Level 135 mmol/L (136-145)
--- NOTE | 2022-12-17 06:15 | CON.PCM.OR_ITS ---
HPI Consult Data Date of Consult: 12/17/22 HPI Narrative HPI Narrative: EVAN LAW, is a 67 F who presents to [facility] for worsening shortness of breath in the setting of history of CHF, COPD with bipedal edema. Chest x-rays were obtained throughout her admission since 12/13/2022 and a displaced left proximal humerus fracture was noted. Patient was diagnosed after a fall in September 2022 with a left proximal humerus fracture. She followed up in our office and nonoperative treatment was recommended. She has since discontinued her sling and has been performing home exercises, no formal physical therapy is reported. She denies any new injury to her left upper extremity since September. She states she has been using her left arm for activities of daily living but reports stiffness and some pain in the left shoulder. Patient is right-hand dominant. Denies fevers, chills, nausea vomiting, chest pain or shortness of breath. COUNT INCLUDES THE [facility] Medical History Anxiety Congestive heart failure (CHF) COPD (chronic obstructive pulmonary disease) DDD (degenerative disc disease) PTSD (post-traumatic stress disorder) Home Medications clonazepam 1 mg tablet 1 mg PO TID PRN Anxiety 03/28/14 [History Last Taken Unknown] denosumab 60 mg/mL subcutaneous syringe 60 mg SQ bone health 03/04/20 [History Last Taken Unknown] naproxen 500 mg tablet 500 mg PO BID PRN Pain 03/04/20 [History Last Taken Unknown] omeprazole 40 mg capsule,delayed release 40 mg PO DAILY PRN GERD 03/04/20 [History Last Taken Unknown] albuterol sulfate 90 mcg/actuation aerosol inhaler 1 - 2 puff inhalation Q4H PRN PRN Shortness Of Breath ##1 03/06/20 [Rx Last Taken Unknown] fluticasone fur. 100 mcg-umeclid 62.5 mcg-vilant 25 mcg inhalat.powder (Trelegy Ellipta) 1 ea inhalation DAILY 12/13/22 [History Last Taken Unknown] Allergy/AdvReac Type Severity Reaction Status Date / Time tramadol Allergy Anaphylaxis Verified 12/13/22 03:29 acetaminophen [From Percocet] AdvReac Nausea/Vom/ Verified 12/13/22 03:29 Diarrhea oxycodone [From Percocet] AdvReac Nausea/Vom/ Verified 12/13/22 03:29 Diarrhea Family History Other Heart disease Surgical History Hx of tonsillectomy Social History Smoking Status: Former smoker ROS ROS Narrative 12 point review of systems obtained, negative unless otherwise noted HPI. Vital Signs Vital Signs Vital Signs: 12/16/22 08:48 12/16/22 08:52 12/16/22 07:00 Temperature Temperature Source Pulse Rate 86 86 69 Respiratory Rate 12 12 Respiratory Effort Normal Respiratory Depth Shallow Respiratory Pattern Normal Blood Pressure 126/67 H Blood Pressure [BP] 120/60 Blood Pressure Mean 86 Blood Pressure Mean [BP] 80 Blood Pressure Source Blood Pressure Source [BP] Monitor Blood Pressure Position Blood Pressure Position [BP] Semi-Fowlers Blood Pressure Location Blood Pressure Location [BP] Right Arm Pulse Ox Oxygen Delivery Method Nasal Cannula Nasal Cannula Oxygen Flow Rate (L/min) 4 4 12/16/22 07:17 12/16/22 07:17 12/16/22 09:33 Temperature 98.0 F Temperature Source Oral Pulse Rate 85 88 Respiratory Rate 20 H 18 Respiratory Effort Respiratory Depth Respiratory Pattern Normal Blood Pressure 113/56 L Blood Pressure [BP] Blood Pressure Mean 75 Blood Pressure Mean [BP] Blood Pressure Source Monitor Blood Pressure Source [BP] Blood Pressure Position Semi-Fowlers Blood Pressure Position [BP] Blood Pressure Location Right Arm Blood Pressure Location [BP] Pulse Ox 96 89 Oxygen Delivery Method Nasal Cannula Nasal Cannula Oxygen Flow Rate (L/min) 5 4 12/16/22 12:47 12/16/22 13:16 12/16/22 14:34 Temperature 98.2 F Temperature Source Oral Pulse Rate 82 98 Respiratory Rate 16 20 H Respiratory Effort Respiratory Depth Respiratory Pattern Normal Blood Pressure 110/60 Blood Pressure [BP] Blood Pressure Mean 76 Blood Pressure Mean [BP] Blood Pressure Source Monitor Blood Pressure Source [BP] Blood Pressure Position Sitting Blood Pressure Position [BP] Blood Pressure Location Right Arm Blood Pressure Location [BP] Pulse Ox 92 93 Oxygen Delivery Method Nasal Cannula Nasal Cannula Oxygen Flow Rate (L/min) 5 5 12/16/22 14:39 12/16/22 14:40 12/16/22 15:43 Temperature Temperature Source Pulse Rate 106 H Respiratory Rate 12 Respiratory Effort Normal Non-Labored Respiratory Depth Normal Respiratory Pattern Normal Blood Pressure Blood Pressure [BP] Blood Pressure Mean Blood Pressure Mean [BP] Blood Pressure Source Blood Pressure Source [BP] Blood Pressure Position Blood Pressure Position [BP] Blood Pressure Location Blood Pressure Location [BP] Pulse Ox 93 94 Oxygen Delivery Method Nasal Cannula Oxygen Flow Rate (L/min) 5 5 5 12/16/22 16:19 12/16/22 23:03 12/16/22 23:03 Temperature 97.6 F L 98.6 F Temperature Source Oral Oral Pulse Rate 94 84 Respiratory Rate 12 16 Respiratory Effort Respiratory Depth Respiratory Pattern Blood Pressure 124/59 H 146/72 H Blood Pressure [BP] Blood Pressure Mean 80 96 Blood Pressure Mean [BP] Blood Pressure Source Monitor Blood Pressure Source [BP] Blood Pressure Position Semi-Fowlers Blood Pressure Position [BP] Blood Pressure Location Right Arm Blood Pressure Location [BP] Pulse Ox 97 97 Oxygen Delivery Method Nasal Cannula Room Air Nasal Cannula Oxygen Flow Rate (L/min) 5 5 12/17/22 05:11 Temperature 98.0 F Temperature Source Oral Pulse Rate 83 Respiratory Rate 17 Respiratory Effort Respiratory Depth Respiratory Pattern Blood Pressure 126/69 H Blood Pressure [BP] Blood Pressure Mean 88 Blood Pressure Mean [BP] Blood Pressure Source Monitor Blood Pressure Source [BP] Blood Pressure Position Semi-Fowlers Blood Pressure Position [BP] Blood Pressure Location Right Arm Blood Pressure Location [BP] Pulse Ox 99 Oxygen Delivery Method Nasal Cannula Oxygen Flow Rate (L/min) 5 Weight Weight: 124 lb 8.979 oz Body Mass Index (BMI) 24.3 Physical Exam Narrative General -A&Ox3, NAD, appears stated age. Vital signs stable, afebrile. Respiratory -normal work of breathing, no intercostal retractions. CV -pulses regular, brisk capillary refill ?4 limbs. Abdomen-soft, nontender, nondistended. No guarding, rigidity, rebound tenderness. Musculoskeletal/neurologic -full range of motion nontender throughout bilateral lower extremities extremities, right upper extremity with full sensation and strength in all dermatomes and myotomes. No midline cervical tenderness Left upper extremity-mildly tender to palpation about the proximal humerus. No gross deformity. Able to passively flex the shoulder to 90 degrees. Active flexion to 90 degrees. External rotation 20 degrees actively. The proximal humerus rotates as a single unit passively. Radial pulse 2+. Brisk capillary refill in the fingertips. Sensation intact light touch C5-T1 dermatomes. Motor intact in all myotomes. Cardinal motions of the left hand are intact. Medical Records Data Medical Nutrition Assessment Dietitian: Malnutrition Criteria Met Start: 12/13/22 12:50 Freq: Status: Active Protocol: Document 12/13/22 12:50 RMA (Rec: 12/13/22 12:50 RMA [id number]) Nutrition Malnutrition Evidence of Malnutrition Exists Yes Malnutrition (moderate): Chronic Evidenced By Suboptimal Energy Intake ( Moderate),Weight Loss ( Moderate) Clinical Problem Chronic Disease or Condition Related Malnutrition Etiology Moderate protein-calorie malnutrition in the context of chronic disease related to increased energy expenditure and inadequate oral intake Signs/Symptoms as evidenced by ~14% wt loss x 1 year and PO meeting less than 75% estimated nutrition needs x past 1 year Status Active Problem Recommendation Dietitian Recommendations/Changes Continue cardiac/sodium- restricted diet with 1500ml FR . Will add ensure compact BID w/ breakfast and dinner. Will add magic cup w/ lunch meal for tolerance. Adjust ONS as needed to optimize PO and prevent further weight loss. Lab / Micro Data Result Diagrams: 12/17/22 04:13 12/17/22 04:13 Labs: Laboratory Results - last 24 hr 12/16/22 04:01: Anisocytosis 1+ 12/17/22 04:13: WBC 13.9 H, RBC 3.84 L, Hgb 11.2 L, Hct 37.2, MCV 96.9, MCH 29.2, MCHC 30.1 L, RDW Std Deviation 52.8 H, RDW Coeff of Tanisha 14.9 H, Plt Count 462 H, MPV 10.2, Immature Gran % (Auto) 0.400, Neut % (Auto) 85.1 H, Lymph % (Auto) 5.8 L, Owen % (Auto) 8.6, Eos % (Auto) 0.0, Baso % (Auto) 0.1, Absolute Neuts (auto) 11.8 H, Absolute Lymphs (auto) 0.81 L, Nucleated RBC % 0 12/17/22 04:13: Sodium 135 L, Potassium 4.0, Chloride 92 L, Carbon Dioxide 39.0 H, Anion Gap 4 L, BUN 18, Creatinine 0.48 L, Estim Creat Clear Calc 38.68, Est GFR (MDRD) Af Amer 163, Est GFR (MDRD) Non-Af 135, BUN/Creatinine Ratio 37.1 H, Glucose 134 H, Calcium 8.9 Micro: Microbiology 12/15/22 11:19 Mucosa - Nasopharyngeal Respiratory Panel (PCR) - Final Radiology Impression Ribs X-Ray 12/16/22 12:22 IMPRESSION: 1. No rib or right shoulder fracture identified. 2. Left humeral neck fracture again noted. 3. Mild infrarenal aortic aneurysm is suspected, it was not fully included on the prior chest CTA March 03, 2020. Noncalcified thrombus was noted within the inferior abdominal aortic lumen without aneurysm on the report of CT abdomen and pelvis 2018. Consider follow-up abdomen and pelvis CT if it is thought to be indicated. Electronically Signed: Shena Hodge MD at 17:45 EDT , Shoulder X-Ray 12/16/22 15:50 IMPRESSION: 1. Again noted is left humeral neck fracture. 2. New humeral head rotation and mild subluxation. New fracture displacement with mild new lateral callus formation. 3. The clavicle, AC joint and scapular body appear intact. Electronically Signed: Shena Hodge MD at 17:35 EDT , Assessment & Plan Assessment/Plan (1) Closed fracture of left proximal humerus: PLAN: X-rays reviewed. Due to inadequate follow-up care, I suspect change in fracture alignment from films in September are from the immediate healing phase as no new injuries reported. Significant fracture callus is noted on the x-ray. No need for sling at this point. Range of motion and activity as tolerated left upper extremity with emphasis on range of motion prior to strengthening. Pain control as needed. Patient may follow-up in our office in 4-6 weeks as needed for left shoulder symptoms. Thank you for this consultation. Do not hesitate to call if any questions or concerns arise.
[2022-12-17] MEDS: Budesonide Respules 0.5 MG/2 ML AMPUL.NEB. INHALATION (07:21)
[2022-12-17] MEDS: Ipratropium/Albuterol Sulfate 3 ML AMPUL.NEB INHALATION ×3 (07:21→19:15)
--- NOTE | 2022-12-17 07:32 | PN.HOSP_ITS ---
Reason for Visit Reason for Visit: Diagnoses Hypokalemia (12/13/22) Heart failure, unspecified (12/13/22) Chronic obstructive pulmonary disease, unspecified (12/13/22) Abnormal electrocardiogram [ECG] [EKG] (12/13/22) Unspecified fracture of upper end of left humerus, initial encounter for closed fracture (12/13/22) Subjective Subjective Patient did complain of persistent left shoulder pain. Imaging studies demonstrated left humeral neck fracture. (Apparently no new patient developed left femoral neck fracture in September 2022)? New humeral head rotation and mild subluxation. New fracture displacement with mild new lateral callus formation. The clavicle, AC joint and scapular body appear intact. Objective Data Objective Data Vital Signs: Vital Signs Temp Pulse Resp BP Pulse Ox O2 Del Method O2 Flow Rate 98.0 F 80 16 126/69 H 99 Nasal Cannula 4 12/17/22 05:11 12/17/22 07:22 12/17/22 07:22 12/17/22 05:11 12/17/22 07:22 12/17/22 07:22 12/17/22 07:22 Oxygen Flow Rate (L/min) 4 Oxygen Delivery Method Nasal Cannula Weight: 55.6 kg Body Mass Index (BMI) 23.9 Intake & Output: Intake and Output for Last 24 Hours 12/15/22 12/16/22 12/17/22 23:59 23:59 23:59 Intake Total 354.51 / 354.51 Output Total 450 / 950 920 / 920 600 / 600 Balance -450 / -950 -565.49 / -565.49 -600 / -600 Medical Nutrition Assessment Dietitian: Malnutrition Criteria Met Start: 12/13/22 12:50 Freq: Status: Active Protocol: Document 12/13/22 12:50 RMA (Rec: 12/13/22 12:50 RMA [id number]) Nutrition Malnutrition Evidence of Malnutrition Exists Yes Malnutrition (moderate): Chronic Evidenced By Suboptimal Energy Intake ( Moderate),Weight Loss ( Moderate) Clinical Problem Chronic Disease or Condition Related Malnutrition Etiology Moderate protein-calorie malnutrition in the context of chronic disease related to increased energy expenditure and inadequate oral intake Signs/Symptoms as evidenced by ~14% wt loss x 1 year and PO meeting less than 75% estimated nutrition needs x past 1 year Status Active Problem Recommendation Dietitian Recommendations/Changes Continue cardiac/sodium- restricted diet with 1500ml FR . Will add ensure compact BID w/ breakfast and dinner. Will add magic cup w/ lunch meal for tolerance. Adjust ONS as needed to optimize PO and prevent further weight loss. Lab / Micro Data Result Diagrams: 12/17/22 04:13 12/17/22 04:13 Labs: Laboratory Results - last 24 hr 12/17/22 04:13: WBC 13.9 H, RBC 3.84 L, Hgb 11.2 L, Hct 37.2, MCV 96.9, MCH 29.2, MCHC 30.1 L, RDW Std Deviation 52.8 H, RDW Coeff of Tanisha 14.9 H, Plt Count 462 H, MPV 10.2, Immature Gran % (Auto) 0.400, Neut % (Auto) 85.1 H, Lymph % (Auto) 5.8 L, Dillon % (Auto) 8.6, Eos % (Auto) 0.0, Baso % (Auto) 0.1, Absolute Neuts (auto) 11.8 H, Absolute Lymphs (auto) 0.81 L, Nucleated RBC % 0 12/17/22 04:13: Sodium 135 L, Potassium 4.0, Chloride 92 L, Carbon Dioxide 39.0 H, Anion Gap 4 L, BUN 18, Creatinine 0.48 L, Estim Creat Clear Calc 38.68, Est GFR (MDRD) Af Amer 163, Est GFR (MDRD) Non-Af 135, BUN/Creatinine Ratio 37.1 H, Glucose 134 H, Calcium 8.9 Micro: Microbiology 12/15/22 11:19 Mucosa - Nasopharyngeal Respiratory Panel (PCR) - Final 12/13/22 03:42 Nasal Secretion SARS-CoV-2 & FLU Antigen (Rapid) - Final Radiography Diagnostic Testing: Radiology Impression Ribs X-Ray 12/16/22 12:22 IMPRESSION: 1. No rib or right shoulder fracture identified. 2. Left humeral neck fracture again noted. 3. Mild infrarenal aortic aneurysm is suspected, it was not fully included on the prior chest CTA March 03, 2020. Noncalcified thrombus was noted within the inferior abdominal aortic lumen without aneurysm on the report of CT abdomen and pelvis 2018. Consider follow-up abdomen and pelvis CT if it is thought to be indicated. Electronically Signed: Shena Hodge MD at 17:45 EDT , Shoulder X-Ray 12/16/22 15:50 IMPRESSION: 1. Again noted is left humeral neck fracture. 2. New humeral head rotation and mild subluxation. New fracture displacement with mild new lateral callus formation. 3. The clavicle, AC joint and scapular body appear intact. Electronically Signed: Shena Hodge MD at 17:35 EDT , Physical Exam Narrative GENERAL: Lethargic but arousable HEENT: Atraumatic; normocephalic EYES; Anicteric, Normal Conjunctiva NECK; supple, normal thyroid, RESPIRATORY: Diminished to auscultation, with occasional wheezes CARDIOVASCULAR: Regular S1 S2, GI: soft, normoactive bowel sounds, : No Renal angle tenderness; EXTREMITIES: No edema, no clubbing, MUSCULOSKELETAL: no muscle wasting NEURO: Awake; no lateralizing signs. SKIN: No Rash PSYCH; Flat affect Assessment & Plan Assessment/Plan (1) Acute exacerbation of CHF (congestive heart failure): (2) COPD (chronic obstructive pulmonary disease): (3) Acute hypokalemia: (4) QT prolongation: PLAN: Plan Patient is a 67-year-old lady admitted with shortness of breath diagnosed with acute hypoxia secondary to combination of CHF and COPD admitted to a monitored bed where patient is currently being managed 1. Acute hypoxia ? Secondary to combination of CHF and COPD treatment of the underlying conditions initiated patient placed on supplemental oxygen titrated to keep satu ration greater than 90 currently on 5 L flow per minute ? 12/17/2022; patient oxygen requirement decreasing 2. Acute congestive heart failure with preserved ejection fraction ? Echo demonstrated EF of 55%. Patient is on IV diuretics fluid restriction strict input and output as well as daily weight 3. COPD with acute exacerbation - Patient started on bronchodilator treatment, systemic steroid as well as antibiotic therapy. Patient placed on oxygen titrated to keep saturation greater than 90. 4. Acute hypertensive emergency ? Systolic blood pressure was as high as 191/95 patient did receive captopril as well as nitroglycerin and Nitropaste patient blood pressure has since stabilized 5. Hypokalemia ? Corrected per protocol 6. Chronic pain ? Patient advised on the need to be cautious with her pain meds since may depress her breathing 7. DVT prophylaxis -Eliquis 8, Moderate protein-calorie malnutrition in the context of chronic disease related to increased energy expenditure and inadequate oral intake as evidenced by ~14% wt loss x 1 year and PO meeting less than 75% estimated nutrition needs x past 1 year. Continue cardiac/sodium-restricted diet with 1500ml FR. Will add ensure compact BID w/ breakfast and dinner. Will add magic cup w/ lunch meal for tolerance. Adjust ONS as needed to optimize PO and prevent further weight loss. 9. Paroxysmal A-fib with RVR ? Started on Cardizem drip titrated to keep heart rate less than 100. Also started on p.o. Cardizem. Patient was started on systemic anticoagulation with Eliquis with a Paulo vas 2 score being greater than 2 10. Left shoulder pain. Imaging studies demonstrated left humeral neck fracture. (Apparently no new patient developed left femoral neck fracture in September 2022)? New humeral head rotation and mild subluxation. New fracture displacement with mild new lateral callus formation. The clavicle, AC joint and scapular body appear intact. Patient was seen in consultation by Dr. Hastings with orthopedic surgery's notes and recommendations reviewed 11. Physical deconditioning - Requested for PT OT eval and long term care social worker to assist with discharge planning Time spent in the patient's overall evaluation,decision-making process, review of diagnostic data, adjustment of management, discussion with other providers, nursing nursing and ancillary staff involved in patient's care documentation, 40 Minutes Charges/Coding Visit Charges Inpatient E&M: 71221 Subs Hosp L2
--- NOTE | 2022-12-17 09:13 | CASEMGMT ---
[facility] reports they can accept patient and will start precert this morning and pt notified. Samia Wheeler [employer], [employer]IN[employer] ARCHITECT
[2022-12-17] MEDS: Ondansetron 4 MG/2 ML Vial IV ×3 (09:20→22:37)
[2022-12-17] MEDS: HYDROcodone Bitartrate/Apap 5/325 Tablet PO ×3 (09:20→22:45)
[2022-12-17] MEDS: predniSONE 20 MG Tablet 40 MG PO (09:20)
[2022-12-17] MEDS: guaiFENesin 1,200 MG Tablet 1200 MG PO ×2 (09:20→22:45)
[2022-12-17] MEDS: APIXABAN 5 MG TABLET PO ×2 (09:20→22:45)
[2022-12-17] MEDS: Cefdinir 300 MG Capsule PO ×2 (09:20→22:45)
[2022-12-17] MEDS: dilTIAZem CD 120 MG Capsule PO ×2 (09:24→22:45)
--- NOTE | 2022-12-17 13:01 | CASEMGMT ---
Patient was approved to [facility]. However, [facility] cannot take patient until tomorrow due to bed availability. [facility] was not expecting to get approval today. SW will notify physician and patient. Plan: [facility] under skilled level of care Stacy ALMEIDA
[2022-12-17] MEDS: Menthol/Lanolin/Calamine/Znox 113 GM Tube 1 APPLIC TOPICAL ×2 (13:13→22:46)
--- NOTE | 2022-12-17 15:20 | CASEMGMT ---
KASSIDY CARPENTER received message from Maida YI CM with [facility] requesting updated to discharge plan. KASSIDY CARPENTER returned called no answer, voice message left with return contact information.
[2022-12-17] MEDS: Potassium Chloride Oral Tablet 20 MEQ 40 MEQ PO (16:24)
[2022-12-18] VITALS (7 sets, daily range): BP systolic 129–133; BP diastolic 63–74; PULSE 70–88; RESP 16–20; TEMP 36.4–36.6; O2SAT 92–98; BMI 23.9
[2022-12-18 05:56] LABS: Absolute Lymphocyte Count 1.73 X10^3/uL (0.83-4.51); Absolute Neutrophil Count 7.9 X10^3/uL (2.0-7.7); Basophil# 0.01 X10^3/uL; Basophil% 0.1 % (0-1); Hematocrit 37.6 % (37-47); Hemoglobin 11.3 g/dL (12.0-15.0); Lymphocyte # 1.73 X10^3/ul (0.83-4.51); Lymphocyte % 15.9 % (19-41); Mean Corp Hgb Conc 30.1 g/dL (32-36); Mean Corpuscular Hgb 29.4 pg (27.0-32.0); Mean Corpuscular Volume 97.7 fL (81-99); Mean Platelet Vol. 10.3 fl (6.2-12.0); Monocyte# 1.15 X10^3/uL; Monocyte% 10.6 % (0-10); NRBC Flagged by Analyzer 0 % (0-5); Neutrophil # 7.92 X10^3/uL (2.7-7.7); Neutrophil % 72.9 % (47-70); Platelet Count 475 K/mm3 (150-450); RBC Distribution Width CV 15.1 % (11.6-14.6); RBC Distribution Width SD 54.1 fl (35.1-43.9); Red Blood Count 3.85 M/mm3 (4.2-5.4); White Blood Count 10.9 K/mm3 (4.4-11.0)
[2022-12-18 06:32] LABS: Anion Gap 4 (5-15); BUN 23 mg/dL (7-18); BUN/Creat Ratio 37.8 RATIO (10-20); Calcium,Total 8.6 mg/dL (8.5-10.1); Chloride 92 mmol/L (98-107); Creatinine, Serum 0.61 mg/dL (0.55-1.02); EST Glomerular Filtration Rate 104 mL/min (>60); Est Glom Filt Rate - Afr Amer 126 mL/min (>60); Estimated Creatinine Clearance 38.68 ml/min; Glucose 85 mg/dL (74-106); Potassium 4.3 mmol/L (3.5-5.1); Sodium Level 134 mmol/L (136-145)
[2022-12-18] MEDS: Menthol/Lanolin/Calamine/Znox 113 GM Tube 1 APPLIC TOPICAL ×2 (06:44→13:25)
[2022-12-18] MEDS: Furosemide 40 MG/4 ML Vial IV (06:44)
[2022-12-18] MEDS: HYDROcodone Bitartrate/Apap 5/325 Tablet PO ×2 (06:44→13:13)
[2022-12-18] MEDS: 0.9% Saline Lock 10 ML Syringe IV (06:46)
[2022-12-18] MEDS: Ipratropium/Albuterol Sulfate 3 ML AMPUL.NEB INHALATION ×2 (07:05→12:51)
[2022-12-18] MEDS: Potassium Chloride Oral Tablet 20 MEQ 40 MEQ PO ×2 (08:20→16:25)
[2022-12-18] MEDS: dilTIAZem CD 120 MG Capsule PO (08:21)
[2022-12-18] MEDS: predniSONE 20 MG Tablet 40 MG PO (08:21)
[2022-12-18] MEDS: APIXABAN 5 MG TABLET PO (08:22)
[2022-12-18] MEDS: guaiFENesin 1,200 MG Tablet 1200 MG PO (08:22)
[2022-12-18] MEDS: Cefdinir 300 MG Capsule PO (08:23)
--- NOTE | 2022-12-18 09:04 | PCM.PN.HOSP ---
Reason for Visit Reason for Visit: Diagnoses Hypokalemia (12/13/22) Heart failure, unspecified (12/13/22) Chronic obstructive pulmonary disease, unspecified (12/13/22) Abnormal electrocardiogram [ECG] [EKG] (12/13/22) Unspecified fracture of upper end of left humerus, initial encounter for closed fracture (12/13/22) Subjective Subjective Seen had a relatively uneventful night did request for changing her CODE STATUS. Plans for patient to be assessed for possible discharge Objective Data Objective Data Vital Signs: Vital Signs Temp Pulse Resp BP Pulse Ox O2 Del Method O2 Flow Rate 97.5 F L 81 18 129/73 H 92 Nasal Cannula 4 12/18/22 08:00 12/18/22 08:00 12/18/22 08:00 12/18/22 08:00 12/18/22 08:00 12/18/22 08:00 12/18/22 08:00 Oxygen Flow Rate (L/min) 4 Oxygen Delivery Method Nasal Cannula Weight: 55.6 kg Body Mass Index (BMI) 23.9 Intake & Output: Intake and Output for Last 24 Hours 12/16/22 12/17/22 12/18/22 23:59 23:59 23:59 Intake Total 354.51 / 354.51 800 / 800 Output Total 920 / 920 900 / 900 700 / 700 Balance -565.49 / -565.49 -100 / -100 -700 / -700 Medical Nutrition Assessment Dietitian: Malnutrition Criteria Met Start: 12/13/22 12:50 Freq: Status: Active Protocol: Document 12/13/22 12:50 RMA (Rec: 12/13/22 12:50 RMA [id number]) Nutrition Malnutrition Evidence of Malnutrition Exists Yes Malnutrition (moderate): Chronic Evidenced By Suboptimal Energy Intake ( Moderate),Weight Loss ( Moderate) Clinical Problem Chronic Disease or Condition Related Malnutrition Etiology Moderate protein-calorie malnutrition in the context of chronic disease related to increased energy expenditure and inadequate oral intake Signs/Symptoms as evidenced by ~14% wt loss x 1 year and PO meeting less than 75% estimated nutrition needs x past 1 year Status Active Problem Recommendation Dietitian Recommendations/Changes Continue cardiac/sodium- restricted diet with 1500ml FR . Will add ensure compact BID w/ breakfast and dinner. Will add magic cup w/ lunch meal for tolerance. Adjust ONS as needed to optimize PO and prevent further weight loss. Lab / Micro Data Result Diagrams: 12/18/22 04:00 12/18/22 04:00 Labs: Laboratory Results - last 24 hr 12/18/22 04:00: WBC 10.9, RBC 3.85 L, Hgb 11.3 L, Hct 37.6, MCV 97.7, MCH 29.4, MCHC 30.1 L, RDW Std Deviation 54.1 H, RDW Coeff of Tanisha 15.1 H, Plt Count 475 H, MPV 10.3, Immature Gran % (Auto) 0.500, Neut % (Auto) 72.9 H, Lymph % (Auto) 15.9 L, Churchill % (Auto) 10.6 H, Eos % (Auto) 0.0, Baso % (Auto) 0.1, Absolute Neuts (auto) 7.9 H, Absolute Lymphs (auto) 1.73, Nucleated RBC % 0 12/18/22 04:00: Sodium 134 L, Potassium 4.3, Chloride 92 L, Carbon Dioxide 38.0 H, Anion Gap 4 L, BUN 23 H, Creatinine 0.61, Estim Creat Clear Calc 38.68, Est GFR (MDRD) Af Amer 126, Est GFR (MDRD) Non-Af 104, BUN/Creatinine Ratio 37.8 H, Glucose 85, Calcium 8.6 Micro: Microbiology 12/15/22 11:19 Mucosa - Nasopharyngeal Respiratory Panel (PCR) - Final 12/13/22 03:42 Nasal Secretion SARS-CoV-2 & FLU Antigen (Rapid) - Final Physical Exam Narrative GENERAL: Cooperative HEENT: Atraumatic; normocephalic EYES; Anicteric, Normal Conjunctiva NECK; supple, normal thyroid, RESPIRATORY: Diminished to auscultation, with occasional wheezes CARDIOVASCULAR: Regular S1 S2, GI: soft, normoactive bowel sounds, : No Renal angle tenderness; EXTREMITIES: No edema, no clubbing, MUSCULOSKELETAL: no muscle wasting NEURO: Awake; no lateralizing signs. SKIN: No Rash PSYCH; Flat affect Assessment & Plan Assessment/Plan (1) Acute exacerbation of CHF (congestive heart failure): (2) COPD (chronic obstructive pulmonary disease): (3) Acute hypokalemia: (4) QT prolongation: (5) Closed fracture of left proximal humerus: PLAN: Plan Patient is a 67-year-old lady admitted with shortness of breath diagnosed with acute hypoxia secondary to combination of CHF and COPD admitted to a monitored bed where patient is currently being managed 1. Acute hypoxia ? Secondary to combination of CHF and COPD treatment of the underlying conditions initiated patient placed on supplemental oxygen titrated to keep saturation greater than 90 currently on 5 L flow per minute ? 12/17/2022; patient oxygen requirement decreasing 2. Acute congestive heart failure with preserved ejection fraction ? Echo demonstrated EF of 55%. Patient is on IV diuretics fluid restriction strict input and output as well as daily weight 3. COPD with acute exacerbation - Patient started on bronchodilator treatment, systemic steroid as well as antibiotic therapy. Patient placed on oxygen titrated to keep saturation greater than 90. 4. Acute hypertensive emergency ? Systolic blood pressure was as high as 191/95 patient did receive captopril as well as nitroglycerin and Nitropaste patient blood pressure has since stabilized 5. Hypokalemia ? Corrected per protocol 6. Chronic pain ? Patient advised on the need to be cautious with her pain meds since may depress her breathing 7. DVT prophylaxis -Eliquis 8, Moderate protein-calorie malnutrition in the context of chronic disease related to increased energy expenditure and inadequate oral intake as evidenced by ~14% wt loss x 1 year and PO meeting less than 75% estimated nutrition needs x past 1 year. Continue cardiac/sodium-restricted diet with 1500ml FR. Will add ensure compact BID w/ breakfast and dinner. Will add magic cup w/ lunch meal for tolerance. Adjust ONS as needed to optimize PO and prevent further weight loss. 9. Paroxysmal A-fib with RVR ? Started on Cardizem drip titrated to keep heart rate less than 100. Also started on p.o. Cardizem. Patient was started on systemic anticoagulation with Eliquis with a Paulo vas 2 score being greater than 2 10. Left shoulder pain. Imaging studies demonstrated left humeral neck fracture. (Apparently no new patient developed left femoral neck fracture in September 2022)? New humeral head rotation and mild subluxation. New fracture displacement with mild new lateral callus formation. The clavicle, AC joint and scapular body appear intact. Patient was seen in consultation by Dr. Hastings with orthopedic surgery's notes and recommendations reviewed 11. Physical deconditioning - Requested for PT OT eval and social and political studies professor to assist with discharge planning Time spent in the patient's overall evaluation,decision-making process, review of diagnostic data, adjustment of management, discussion with other providers, nursing nursing and ancillary staff involved in patient's care documentation, 40 Minutes Advance planning; did discuss with the patient and family regarding advanced directives as well as CODE STATUS. Did explain the various scenarios involved ( FULL CODE, DNR CCA, DNR CCA with no intubation, and DNR CC and what each meant) patient elected to be DNR CCA no intubation. Order was placed. Time spent on discussion 18 minutes. Charges/Coding Visit Charges Inpatient E&M: 28825 Subs Hosp L2
--- NOTE | 2022-12-18 09:12 | CASEMGMT ---
SW spoke with patient this am about the DNR. SW let patient know physician signed the DNR and when he comes in today to talk about the two options. SW went over the two options for DNR, DNRCCA and DNRCC. Patient wishes to be DNRCCA. SW reminded patient to talk with physician to make sure she completely understands both options. Patient requested 2 copies of the document. Stacy ALMEIDA
--- NOTE | 2022-12-18 09:46 | TREXTCAR_ITS ---
Diet Diet Order/Speech Therapy: 12/13/22 08:03 Diet: Cardiac - Heart Healthy Food consistency:: Regular Liquid Consistency:: Regular/Thin Dietary Modifications:: Sodium Restricted Type of Dietary Supplement:: Magic Cup w/ lunch Fluid restriction:: 1500 mL Diet Comments: Ensure Compact BID w/ breakfast and dinner Routine Orders/Code Status Code Status: DNRCC-A Therapies Physical Therapy: Eval and Treat Occupational Therapy: Eval and Treat Problem/Diagnosis (1) Acute exacerbation of CHF (congestive heart failure): Status: Chronic Code(s): I50.9 - Heart failure, unspecified (2) COPD (chronic obstructive pulmonary disease): Status: Chronic Code(s): J44.9 - Chronic obstructive pulmonary disease, unspecified (3) Acute hypokalemia: Status: Acute Code(s): E87.6 - Hypokalemia (4) QT prolongation: Status: Acute Code(s): R94.31 - Abnormal electrocardiogram [ECG] [EKG] (5) Closed fracture of left proximal humerus: Status: Acute Code(s): S42.A - Unspecified fracture of upper end of left humerus, initial encounter for closed fracture Plan Patient is a 67-year-old lady admitted with shortness of breath diagnosed with acute hypoxia secondary to combination of CHF and COPD admitted to a monitored bed where patient is currently being managed 1. Acute hypoxia ? Secondary to combination of CHF and COPD treatment of the underlying conditions initiated patient placed on supplemental oxygen titrated to keep saturation greater than 90 currently on 5 L flow per minute ? 12/17/2022; patient oxygen requirement decreasing 2. Acute congestive heart failure with preserved ejection fraction ? Echo demonstrated EF of 55%. Patient is on IV diuretics fluid restriction strict input and output as well as daily weight 3. COPD with acute exacerbation - Patient started on bronchodilator treatment, systemic steroid as well as antibiotic therapy. Patient placed on oxygen titrated to keep saturation greater than 90. 4. Acute hypertensive emergency ? Systolic blood pressure was as high as 191/95 patient did receive captopril as well as nitroglycerin and Nitropaste patient blood pressure has since stabilized 5. Hypokalemia ? Corrected per protocol 6. Chronic pain ? Patient advised on the need to be cautious with her pain meds since may depress her breathing 7. DVT prophylaxis -Eliquis 8, Moderate protein-calorie malnutrition in the context of chronic disease related to increased energy expenditure and inadequate oral intake as evidenced by ~14% wt loss x 1 year and PO meeting less than 75% estimated nutrition needs x past 1 year. Continue cardiac/sodium-restricted diet with 1500ml FR. Will add ensure compact BID w/ breakfast and dinner. Will add magic cup w/ lunch meal for tolerance. Adjust ONS as needed to optimize PO and prevent further weight loss. 9. Paroxysmal A-fib with RVR ? Started on Cardizem drip titrated to keep heart rate less than 100. Also started on p.o. Cardizem. Patient was started on systemic anticoagulation with Eliquis with a Paulo vas 2 score being greater than 2 10. Left shoulder pain. Imaging studies demonstrated left humeral neck fracture. (Apparently no new patient developed left femoral neck fracture in September 2022)? New humeral head rotation and mild subluxation. New fracture displacement with mild new lateral callus formation. The clavicle, AC joint and scapular body appear intact. Patient was seen in consultation by Dr. Hastings with orthopedic surgery's notes and recommendations reviewed 11. Physical deconditioning - Requested for PT OT eval and high school social studies teacher to assist with discharge planning Time spent in the patient's overall evaluation,decision-making process, review of diagnostic data, adjustment of management, discussion with other providers, nursing nursing and ancillary staff involved in patient's care documentation, 40 Minutes Allergies/Procedures Done in Hospital Allergies tramadol Allergy (Verified 12/13/22 03:29) Anaphylaxis acetaminophen [From Percocet] Adverse Reaction (Verified 12/13/22 03:29) Nausea/Vom/Diarrhea oxycodone [From Percocet] Adverse Reaction (Verified 12/13/22 03:29) Nausea/Vom/Diarrhea Type of Care/Length of Stay Estimated LOS: Convalescent Care Less Than 30 days Type of Care Needed: Skilled Rehab Potential: Good Prognosis: Good Additional Orders/Day of Discharge Day of Discharge: 12/18/22 Dietary and Speech Recommendations Dietitian Recommendations/Changes: Continue cardiac/sodium-restricted diet with 1500ml FR. Will add ensure compact BID w/ breakfast and dinner. Will add magic cup w/ lunch meal for tolerance. Adjust ONS as needed to optimize PO and prevent further weight loss. Discharge Plan Admission Admit Date/Time: 12/13/22 06:23 Attending Provider: Lucho Lopez Primary Care Provider: Xavier Brownlee Consulting Providers: Juve Patino ; Pura Diaz ; Pradeep Hastings Discharge Orders/Prescriptions Prescriptions: New ipratropium-albuterol 0.5 mg-3 mg(2.5 mg base)/3 mL Solution For Nebulization 3 ml inhalation Q6HWA.RT Qty: 0 0RF hydrocodone-acetaminophen 5-325 mg Tablet 1 tab PO Q6H PRN PRN (Reason: Pain 8-10) 2 Days Qty: 8 0RF prednisone 20 mg Tablet 40 mg PO DAILY@0800 Qty: 0 0RF acetaminophen 500 mg Tablet 1,000 mg PO Q8 Qty: 0 0RF potassium chloride [Klor-Con M20] 20 mEq Tablet,Er Particles/Crystals 20 meq PO BIDCM Qty: 0 0RF diltiazem HCl 120 mg Capsule,Extended Release 24hr 120 mg PO Q12 Qty: 60 0RF cefdinir 300 mg Capsule 300 mg PO Q12 Qty: 10 0RF menthol-zinc oxide [Calmoseptine] 0.44-20.6 % Ointment 1 applic topical TID Qty: 0 0RF Protocol: *Topical Application Instructions APPLICATION INSTRUCTIONS: sulma buttocks Eliquis 5 mg Tablet 5 mg PO BID Qty: 120 0RF Mucus Relief ER 1,200 mg Tablet Extended Release 12hr 1,200 mg PO BID Qty: 10 0RF furosemide 40 mg Tablet 40 mg PO BIDLX Qty: 120 0RF clonazepam 1 mg Tablet 0.5 mg PO TID PRN PRN (Reason: Anxiety) Qty: 0 0RF clonazepam 0.5 mg tablet 0.5 mg PO TID PRN PRN (Reason: anxiety) Qty: 6 0RF Continued omeprazole 40 MG capsule,delayed release(DR/EC) 40 mg PO DAILY PRN (Reason: GERD) naproxen 500 MG tablet 500 mg PO BID PRN (Reason: Pain) denosumab 60 mg/mL syringe 60 mg SQ Label Comments: Inject 1 mL subcutaneously one time only for 1 dose. Rx Instructions: Q 6 months. Next injection scheduld for 03/14/20 albuterol sulfate 1 INHALER inhaler 1 - 2 puff inhalation Q4H PRN PRN (Reason: Shortness Of Breath) Qty: 1 0RF Trelegy Ellipta 100-62.5-25 mcg blister with device 1 ea inhalation DAILY Discontinued clonazepam 1 MG tablet 1 mg PO TID PRN (Reason: Anxiety) Referrals / Follow Up: Xavier Brownlee MD [Primary Care Provider] - Disposition Disposition (needs filled in before D/C Order can be placed): Nursing Home Facility
--- NOTE | 2022-12-18 10:06 | CASEMGMT ---
SW took patient 2 copies of her DNR per her request. Patient was in the bathroom so SW gave copies to patient's son. Stacy Sadler MSW [facility]
--- NOTE | 2022-12-18 10:16 | DS.PCM_ITS ---
Providers Date of Admission: 12/13/22 Date of Discharge: 12/18/22 Primary Care Physician: Dr. Xavier Brownlee MD Consultations 12/16/22 17:57 Consult: Orthopedics Routine Consulting Provider: Pradeep Hastings Reason for Consult: shoulder fracture EMERGENT Consult: No MD Notified: Yes Date Notified: 12/16/22 Time Notified: 17:57 Method of Notification: Verbal Reason For Visit: ACUTE DECOMPENSATED HEART FAILURE Diagnosis Discharge Diagnosis (1) Acute exacerbation of CHF (congestive heart failure): Status: Chronic Code(s): I50.9 - Heart failure, unspecified (2) COPD (chronic obstructive pulmonary disease): Status: Chronic Code(s): J44.9 - Chronic obstructive pulmonary disease, unspecified (3) Acute hypokalemia: Status: Acute Code(s): E87.6 - Hypokalemia (4) QT prolongation: Status: Acute Code(s): R94.31 - Abnormal electrocardiogram [ECG] [EKG] (5) Closed fracture of left proximal humerus: Status: Acute Code(s): S42.A - Unspecified fracture of upper end of left humerus, initial encounter for closed fracture Plan Patient is a 67-year-old lady admitted with shortness of breath diagnosed with acute hypoxia secondary to combination of CHF and COPD admitted to a monitored bed where patient is currently being managed 1. Acute hypoxia ? Secondary to combination of CHF and COPD treatment of the underlying conditions initiated patient placed on supplemental oxygen titrated to keep saturation greater than 90 currently on 5 L flow per minute ? 12/17/2022; patient oxygen requirement decreasing 2. Acute congestive heart failure with preserved ejection fraction ? Echo demonstrated EF of 55%. Patient is on IV diuretics fluid restriction strict input and output as well as daily weight 3. COPD with acute exacerbation - Patient started on bronchodilator treatment, systemic steroid as well as a ntibiotic therapy. Patient placed on oxygen titrated to keep saturation greater than 90. 4. Acute hypertensive emergency ? Systolic blood pressure was as high as 191/95 patient did receive captopril as well as nitroglycerin and Nitropaste patient blood pressure has since stabilized 5. Hypokalemia ? Corrected per protocol 6. Chronic pain ? Patient advised on the need to be cautious with her pain meds since may depress her breathing 7. DVT prophylaxis -Eliquis 8, Moderate protein-calorie malnutrition in the context of chronic disease related to increased energy expenditure and inadequate oral intake as evidenced by ~14% wt loss x 1 year and PO meeting less than 75% estimated nutrition needs x past 1 year. Continue cardiac/sodium-restricted diet with 1500ml FR. Will add ensure compact BID w/ breakfast and dinner. Will add magic cup w/ lunch meal for tolerance. Adjust ONS as needed to optimize PO and prevent further weight loss. 9. Paroxysmal A-fib with RVR ? Started on Cardizem drip titrated to keep heart rate less than 100. Also started on p.o. Cardizem. Patient was started on systemic anticoagulation with Eliquis with a Paulo vas 2 score being greater than 2 10. Left shoulder pain. Imaging studies demonstrated left humeral neck fracture. (Apparently no new patient developed left femoral neck fracture in September 2022)? New humeral head rotation and mild subluxation. New fracture displacement with mild new lateral callus formation. The clavicle, AC joint and scapular body appear intact. Patient was seen in consultation by Dr. Hastings with orthopedic surgery's notes and recommendations reviewed 11. Physical deconditioning - Requested for PT OT eval and dialysis social worker to assist with discharge planning Time spent in the patient's overall evaluation,decision-making process, review of diagnostic data, adjustment of management, discussion with other providers, nursing nursing and ancillary staff involved in patient's care documentation, 40 Minutes Medications at Discharge Home Medications denosumab 60 mg/mL subcutaneous syringe 60 mg SQ bone health 03/04/20 naproxen 500 mg tablet 500 mg PO BID PRN Pain 03/04/20 omeprazole 40 mg capsule,delayed release 40 mg PO DAILY PRN GERD 03/04/20 albuterol sulfate 90 mcg/actuation aerosol inhaler 1 - 2 puff inhalation Q4H PRN PRN Shortness Of Breath ##1 03/06/20 fluticasone fur. 100 mcg-umeclid 62.5 mcg-vilant 25 mcg inhalat.powder (Trelegy Ellipta) 1 ea inhalation DAILY 12/13/22 acetaminophen 500 mg tablet 1,000 mg PO Q8 #0 tabs 12/18/22 apixaban 5 mg tablet (Eliquis) 5 mg PO BID #120 tabs 12/18/22 cefdinir 300 mg capsule 300 mg PO Q12 #10 caps 12/18/22 clonazepam 0.5 mg tablet 0.5 mg PO TID PRN PRN anxiety #6 tabs 12/18/22 clonazepam 1 mg tablet 0.5 mg PO TID PRN PRN Anxiety #0 tabs 12/18/22 diltiazem HCl 120 mg capsule,extended release 24 hr 120 mg PO Q12 #60 caps 12/18/22 furosemide 40 mg tablet 40 mg PO BIDLX #120 tabs 12/18/22 guaifenesin 1,200 mg tablet, extended release 12 hr (Mucus Relief ER) 1,200 mg PO BID #10 tabs 12/18/22 hydrocodone-acetaminophen 5-325mg 5mg-325mg 1 tab PO Q6H PRN PRN Pain 8-10 2 da ys #8 tabs 12/18/22 ipratropium 0.5 mg-albuterol 3 mg (2.5 mg base)/3 mL nebulization soln 3 ml inh alation Q6HWA.RT #0 mL 12/18/22 menthol 0.44 %-zinc oxide 20.6 % topical ointment (Calmoseptine) 1 applic topical TID #0 grams 12/18/22 potassium chloride 20 mEq tablet,extended release(part/cryst) (Klor-Con M) 20 meq PO BIDCM #0 tabs 12/18/22 prednisone 20 mg tablet 40 mg PO DAILY@0800 #0 tabs 12/18/22 Hospital Course Summary of Care Provided Minutes Spent on Discharge: 40 Physical Exam Narrative GENERAL: Cooperative HEENT: Atraumatic; normocephalic EYES; Anicteric, Normal Conjunctiva NECK; supple, normal thyroid, RESPIRATORY: Diminished to auscultation, with occasional wheezes CARDIOVASCULAR: Regular S1 S2, GI: soft, normoactive bowel sounds, : No Renal angle tenderness; EXTREMITIES: No edema, no clubbing, MUSCULOSKELETAL: no muscle wasting NEURO: Awake; no lateralizing signs. SKIN: No Rash PSYCH; Flat affect Medical Records Data Medical Nutrition Assessment Dietitian: Malnutrition Criteria Met Start: 12/13/22 12:50 Freq: Status: Active Protocol: Document 12/13/22 12:50 RMA (Rec: 12/13/22 12:50 RMA [id number]) Nutrition Malnutrition Evidence of Malnutrition Exists Yes Malnutrition (moderate): Chronic Evidenced By Suboptimal Energy Intake ( Moderate),Weight Loss ( Moderate) Clinical Problem Chronic Disease or Condition Related Malnutrition Etiology Moderate protein-calorie malnutrition in the context of chronic disease related to increased energy expenditure and inadequate oral intake Signs/Symptoms as evidenced by ~14% wt loss x 1 year and PO meeting less than 75% estimated nutrition needs x past 1 year Status Active Problem Recommendation Dietitian Recommendations/Changes Continue cardiac/sodium- restricted diet with 1500ml FR . Will add ensure compact BID w/ breakfast and dinner. Will add magic cup w/ lunch meal for tolerance. Adjust ONS as needed to optimize PO and prevent further weight loss. Weight / BMI Weight Weight: 55.6 kg Body Mass Index (BMI) 23.9 ABG / Lab / Microbiology Data Result Diagrams: 12/18/22 04:00 12/18/22 04:00 Laboratory: Laboratory Results - last 24 hr 12/18/22 04:00: WBC 10.9, RBC 3.85 L, Hgb 11.3 L, Hct 37.6, MCV 97.7, MCH 29.4, MCHC 30.1 L, RDW Std Deviation 54.1 H, RDW Coeff of Tanisha 15.1 H, Plt Count 475 H, MPV 10.3, Immature Gran % (Auto) 0.500, Neut % (Auto) 72.9 H, Lymph % (Auto) 15.9 L, [place] % (Auto) 10.6 H, Eos % (Auto) 0.0, Baso % (Auto) 0.1, Absolute Neuts (auto) 7.9 H, Absolute Lymphs (auto) 1.73, Nucleated RBC % 0 12/18/22 04:00: Sodium 134 L, Potassium 4.3, Chloride 92 L, Carbon Dioxide 38.0 H, Anion Gap 4 L, BUN 23 H, Creatinine 0.61, Estim Creat Clear Calc 38.68, Est GFR (MDRD) Af Amer 126, Est GFR (MDRD) Non-Af 104, BUN/Creatinine Ratio 37.8 H, Glucose 85, Calcium 8.6 Microbiology: Microbiology 12/15/22 11:19 Mucosa - Nasopharyngeal Respiratory Panel (PCR) - Final 12/13/22 03:42 Nasal Secretion SARS-CoV-2 & FLU Antigen (Rapid) - Final D/C Instructions Discharge Diet: 8 Cup Fluid Restriction and 2000 mg Sodium Diet Discharge Activity: Return to Normal Activity Call your doctor if you observe: Fever of 101 or Higher, Shortness of breath, Fainting spells and Chest pain Meaningful Use Info Meaningful Use Diagnoses (Choose all that apply): CHF CHF ALLYN/ARB ordered at discharge?: No Reason ALLYN/ARB not ordered?: Not indicated Documented LVEF (%): 55 Discharge Plan Admission Admit Date/Time: 12/13/22 06:23 Attending Provider: Lucho Lopez Primary Care Provider: Xavier Brownlee Consulting Providers: Juve Patino ; Pura Diaz ; Pradeep Hastings Discharge Orders/Prescriptions Prescriptions: New ipratropium-albuterol 0.5 mg-3 mg(2.5 mg base)/3 mL Solution For Nebulization 3 ml inhalation Q6HWA.RT Qty: 0 0RF hydrocodone-acetaminophen 5-325 mg Tablet 1 tab PO Q6H PRN PRN (Reason: Pain 8-10) 2 Days Qty: 8 0RF prednisone 20 mg Tablet 40 mg PO DAILY@0800 Qty: 0 0RF acetaminophen 500 mg Tablet 1,000 mg PO Q8 Qty: 0 0RF potassium chloride [Klor-Con M20] 20 mEq Tablet,Er Particles/Crystals 20 meq PO BIDCM Qty: 0 0RF diltiazem HCl 120 mg Capsule,Extended Release 24hr 120 mg PO Q12 Qty: 60 0RF cefdinir 300 mg Capsule 300 mg PO Q12 Qty: 10 0RF menthol-zinc oxide [Calmoseptine] 0.44-20.6 % Ointment 1 applic topical TID Qty: 0 0RF Protocol: *Topical Application Instructions APPLICATION INSTRUCTIONS: sulma buttocks Eliquis 5 mg Tablet 5 mg PO BID Qty: 120 0RF Mucus Relief ER 1,200 mg Tablet Extended Release 12hr 1,200 mg PO BID Qty: 10 0RF furosemide 40 mg Tablet 40 mg PO BIDLX Qty: 120 0RF clonazepam 1 mg Tablet 0.5 mg PO TID PRN PRN (Reason: Anxiety) Qty: 0 0RF clonazepam 0.5 mg tablet 0.5 mg PO TID PRN PRN (Reason: anxiety) Qty: 6 0RF Continued omeprazole 40 MG capsule,delayed release(DR/EC) 40 mg PO DAILY PRN (Reason: GERD) naproxen 500 MG tablet 500 mg PO BID PRN (Reason: Pain) denosumab 60 mg/mL syringe 60 mg SQ Label Comments: Inject 1 mL subcutaneously one time only for 1 dose. Rx Instructions: Q 6 months. Next injection scheduld for 03/14/20 albuterol sulfate 1 INHALER inhaler 1 - 2 puff inhalation Q4H PRN PRN (Reason: Shortness Of Breath) Qty: 1 0RF Trelegy Ellipta 100-62.5-25 mcg blister with device 1 ea inhalation DAILY Discontinued clonazepam 1 MG tablet 1 mg PO TID PRN (Reason: Anxiety) Referrals / Follow Up: Xavier Brownlee MD [Primary Care Provider] - Disposition Disposition (needs filled in before D/C Order can be placed): [facility]-Way Facility Charges/Coding Visit Charges Inpatient E&M: 55559 Disch Hosp >30min
--- NOTE | 2022-12-18 10:23 | CASEMGMT ---
TRACY called and left a voice mail for Jameslesliechelsea with [facility] letting her know patient will be discharged to [facility] today. TRACY also called and left a voice mail for Maida with [facility] letting her know patient will be discharged to [facility] today. Plan: d/c to [facility] under intermediate level of care on a convalescent stay. Stacy Sadler DIGITAL AD TRAFFICKER [place]
--- NOTE | 2022-12-18 10:57 | CASEMGMT ---
TRACY called [facility] and spoke with Rani to arrange transport. Confirmation number is [id number]. Stacy ALMEIDA
--- NOTE | 2022-12-18 11:47 | CASEMGMT ---
SW called [facility] to see if they have heard from [facility] and they have not. Stacy Sadler HIV/AIDS CARE NURSE [place]
--- NOTE | 2022-12-18 12:45 | CASEMGMT ---
11:42a TRACY called [facility] to check on the status of transport. TRACY was told by Rani that [facility] will pick patient up at 154p. TRACY called [facility] in [place] and they do not have patient on the schedule. 11:53a: TRACY called [facility] again. TRACY was told again that [facility] will central supply assistant patient. TRACY let the individual know SW called [facility] and they do not have patient on their schedule and no one has called them. The individual said she is transferring SW to the [place] office to see why [facility] was not called. SW waited on hold and was eventually connected to an automated system which indicated the next scheduled transport for this patient is December 24. TRACY hung up and called back again. 12:09 TRACY called [facility] again. TRACY explained situation to Mary with [facility]. Mary put SW on hold and called [facility] and they confirmed they do not have patient on their schedule and they cannot transport patient. Mary sent an email to her cardiopulmonary supervisor letting them know transport needs set up for patient right away. TRACY made sure [facility] was listed in the request. TRACY explained if someone could just call [facility] they would transport patient. Stacy Sadler SAWMILL PRODUCTION WORKER [place]
--- NOTE | 2022-12-18 13:05 | CASEMGMT ---
TRACY called [facility] again for an update. TRACY was again told [facility] will pick up attendant patient at 154. TRACY told the individual that [facility] is not picking up patient. TRACY explained that TRACY spoke with Mary earlier and she called [facility] and they cannot transport patient. TRACY was placed on hold. TRACY was then told that Mary sent an email to her bookkeeping clerks supervisor and they are working on setting up transport. TRACY told the individual that someone just needs to call [facility] and they will gladly transport patient. Stacy ALMEIDA
--- NOTE | 2022-12-18 13:09 | CASEMGMT ---
SW spoke with patient and her son. SW explained that patient's insurance does not allow SW to call and set up transportation. SW has to call a company called [employer] that arranges the transport. SW explained SW is having issues with getting [facility] to arrange transport. SW apologized and will let them know a time as soon as SW is able to get something arranged. Stacy Sadler GOLF CLUB WEIGHER MANAGER INFRASTRUCTURE
--- NOTE | 2022-12-18 14:24 | CASEMGMT ---
TRACY called [facility] and spoke with Mary again. Mary looked and transportation still has not been found. Mary put TRACY on hold to see what she can do to help. Mary came back and she was told to keep sending emails until transport is arranged. Mary said she cannot call [facility] as it [place]. TRACY will continue to wait on transport for patient. TRACY spoke with Keila at [facility] and let her know this information. Stacy Sadler HABILITATION WORKER [place]
--- NOTE | 2022-12-18 14:35 | CASEMGMT ---
TRACY left a message for Director Lynn regarding transportation issues. SW spoke with patient and asked if she would be able to get in her son's vehicle. Patient did not think any of her sons were available. TRACY let patient know SW is continuing to try and arrange transportation. Stacy ALMEIDA
--- NOTE | 2022-12-18 14:55 | CASEMGMT ---
SW called [facility] and explained situation. While SW was on hold [facility] called [facility]. [facility] told [facility] the transportation was set up with [facility]. Therefore, [facility] cannot transport patient. SW called [facility] and their hole digger truck driver is on the way to moss picker patient. SW asked if their hole digger truck driver has O2 and a wheelchair. They were not told patient needed a wheelchair and they do not provide O2. SW let her know to cancel her hole digger truck driver as patient is on 4L of O2 and does not have a wheelchair. TRACY called [facility] and spoke with Richard. TRACY let Richard know SW would like to talk with a chief maintenance supervisor. TRACY explained the situation. Richard put SW on hold to see if there was anything she could do to help. Richard said that patient's insurance does not provide a wheelchair for transport. TRACY told Richard that is why we ask that [facility] be called to do the transport as they have no problem providing O2 and a wheelchair. Richard sent an email to the individuals who set up the transport asking them to call [facility] to set up transport and then call SW. Stacy Sadler PULLING UNIT FLOORHAND [place]
--- NOTE | 2022-12-18 15:36 | CASEMGMT ---
TRACY called [facility] and spoke with Megan. TRACY explained situation and asked if they could call [facility] again. Lexy put TRACY on hold. When she came back on the phone Lexy said that TRACY has to call [facility] cancel the transport with [facility] and request [facility]. TRACY has already done this. Stacy Sadler SOLAR SYSTEMS DESIGNER LINE TECHNICIAN
--- NOTE | 2022-12-18 15:49 | CASEMGMT ---
TRACY called [facility] and explained situation. TRACY asked if there were any updates on patient's transport request. SW was placed on hold. SW was told that they are still working on transport. TRACY asked that the request be canceled. TRACY obtained permission from Director Lynn Alejo to call [facility] and arrange transport. TRACY called [facility] and arranged for patient to get picked up via wheelchair at 530. TRACY notified Keila at [facility], medical records secretary, RN, and patient. Plan: d/c to [facility] under intermediate level of care on a convalescent stay. [facility] will transport patient via wheelchair van. TRACY did try since 10:42 today to [facility]. However, the transport they arranged for patient did not supply O2 or a wheelchair. Patient is on 4L of O2. Stacy ALMEIDA
[2022-12-18] MEDS: clonazePAM 1 MG Tablet 0.5 MG PO (16:25)
[2022-12-18] MEDS: Furosemide 40 MG Tablet PO (17:44)
== END 2022-12-18 18:22 | disposition skilled nursing facility (03) | DRG 292 ==
LOC: ED 06:41 → PCU 06:57
PROVIDERS: Internal Medicine; Admitting Provider Hospitalist; Emergency Provider Emergency Medicine; PCP Family Medicine; Visit Provider Internal Medicine
DX: I50.33 Acute on chronic diastolic (congestive) heart failure (principal); J44.1 Chronic obstructive pulmonary disease with (acute) exacerbation; E44.0 Moderate protein-calorie malnutrition; I16.1 Hypertensive emergency; S42.292A Other displaced fracture of upper end of left humerus, initial encounter for closed fracture; Z99.81 Dependence on supplemental oxygen; I48.0 Paroxysmal atrial fibrillation; E87.6 Hypokalemia; G89.29 Other chronic pain; X58.XXXA Exposure to other specified factors, initial encounter; R53.81 Other malaise; R94.31 Abnormal electrocardiogram [ECG] [EKG]; R09.02 Hypoxemia; Z66 Do not resuscitate; Z68.23 Body mass index [BMI] 23.0-23.9, adult; Z79.899 Other long term (current) drug therapy; Z87.891 Personal history of nicotine dependence
CPT/HCPCS: 36415; 71045; 71110; 73030; 80048; 83735; 83880; 84443; 84484; 85025; 87426; 87428; 87633; 93005; 93306; 94640; 97162; 97166; 97535; 97802; 99284; Q9957; A4216; J1940; J2405